=== PATIENT | female | born 1990 | race Caucasian/White ===

== ENCOUNTER 2016-09-09 06:08 | Inpatient (IN) | payer OTHER ==
[2016-09-08 15:20] LABS: Hematocrit 35 % (35-47); Mean Corpuscular HGB Conc 34 g/dl (31-36); Mean Corpuscular Hemoglobin 33 pg (27-31); Mean Corpuscular Volume 96 fL (80-97); Mean Platelet Volume 10 um3 (7.4-10.4); Red Blood Count 3.68 10^6/ul (4.0-5.4); Red Cell Distribution Width 13 % (10.5-15); White Blood Count 16.2 10^3/ul (3.5-10.8)
[2016-09-09] MEDS ORDERED: Sodium Citrate/Citric Acid* 15 ML UDC ONE (07:56)
[2016-09-09] MEDS ORDERED: ceFOXitin 2 GM IVPREMIX* 2 GM/50 ML BAG ONE (07:56)
[2016-09-09] MEDS ORDERED: Morphine PF AMP (0.5MG/ML)* 5 MG/10 ML AMP ONE (08:27)
[2016-09-09] MEDS ORDERED: Phenylephrine IV* 40 MCG/ML 10 ML SYRINGE ONE (08:53)
[2016-09-09] MEDS ORDERED: Ketorolac INJ* 30 MG/ML 1 ML VIAL ONE (08:53)
[2016-09-09] MEDS ORDERED: Ondansetron INJ* 2 MG/ML VIAL ONE (08:53)
[2016-09-09] MEDS ORDERED: EPHEDrine (Pressors)* 50 MG/ML VIAL ONE (08:53)
[2016-09-09] MEDS ORDERED: OXYTOCIN* 10 UNITS/ML 1 ML VIAL ONE (08:53)
[2016-09-09] MEDS ORDERED: DiMENhydriNATE IV* 50 MG/ML VIAL IV PUSH PRN (09:21)
[2016-09-09] MEDS ORDERED: Acetaminophen TAB* 325 MG PO PRN ×2 (09:21→09:53)
[2016-09-09] MEDS ORDERED: oxyCODONE/Acetamin 5/325 MG* TAB PO PRN ×2 (09:21→09:22)
[2016-09-09] MEDS ORDERED: HYDROmorphone INJ* 1 MG/ML CARPUJECT SYRINGE IV PRN (09:21)
[2016-09-09] MEDS ORDERED: Ondansetron INJ* 2 MG/ML VIAL IV PRN (09:22)
[2016-09-09] MEDS ORDERED: Naloxone* 0.4 MG/ML 1 ML VIAL IV PRN (09:22)
[2016-09-09] MEDS ORDERED: Nalbuphine* 20 MG/ML 1 ML VIAL IV PRN (09:22)
[2016-09-09] MEDS ORDERED: Witch Hazel PAD* JAR TOPICAL PRN (09:53)
[2016-09-09] MEDS ORDERED: Glycerin ADULT SUPP PR PRN (09:53)
[2016-09-09] MEDS ORDERED: Dibucaine 1% 28.35 GM TUBE PR PRN (09:53)
[2016-09-09] MEDS ORDERED: ceFOXitin 2 GM IVPREMIX* 2 GM/50 ML BAG IVPB ONE (09:55)
[2016-09-09] MEDS ORDERED: Oxytocin in LR* 20 UNITS/1,000 ML BAG IVPB SCH (10:00)
[2016-09-09] MEDS: Ibuprofen TAB* 600 MG PO SCH ×3 (11:18→22:00)
[2016-09-09] MEDS: Simethicone TAB* 80 MG TAB.CHEW PO SCH ×3 (12:30→20:29)
[2016-09-09] MEDS: Docusate CAP* 100 MG PO SCH ×2 (15:46→20:29)
--- NOTE | 2016-09-10 03:19 | OP ---
OPERATIVE REPORT: DATE OF OPERATION: 09/09/16 DATE OF : 86 SURGEON: Dr. Gwen Maurer. PET NUTRITION SPECIALIST: Dr. Kelley. ANESTHESIOLOGIST: Dr. Hayes. ANESTHESIA: Spinal. PRE-OP DIAGNOSIS: Intrauterine at 39 weeks, desires repeat , declines permanent sterility. POST-OP DIAGNOSIS: Intrauterine at 39 weeks, desires repeat , declines permanent sterility. OPERATIVE PROCEDURE: Repeat low transverse section. ESTIMATED BLOOD LOSS: 600 cc. FLUIDS: 1700 cc of crystalloids. URINE OUTPUT: 300 cc of clear yellow urine. FINDINGS: Revealed a vertex female infant 6 pounds 9 ounces, light meconium. No nuchal cord. Norm al-appearing placenta. Manually extracted three-vessel cord and intact. Normal appearing tubes and ovaries bilaterally. COMPLICATIONS: None apparent. DISPOSITION: Stable to recovery room. DESCRIPTION OF PROCEDURE: The patient was placed in the dorsal lithotomy position. Abdomen was prep ped and dapped in a sterile standard fashion. Anesthesia was tested to appropriate level. The calista ent was identified with a universal protocol for the correct procedure, patient, and position. An i ncision was made through prior incision with scalpel, this was carried down through the fascia. The fascia was scored in the midline, extended laterally and superiorly using curved Branch scissors. Fa scia was from the muscle through blunt and sharp dissection. The peritoneum was then enter ed bluntly and the peritoneal excision was extended bluntly. The bladder blade was inserted. The l ower uterine segment was identified and a bladder flap was created through sharp dissection using Me tzenbaum scissors. An Allis was used to tent up on the lower uterine segment. Incision was made wit h scalpel, this was carried down through to the membranes, meconium. Light meconium was noted. The bandage scissors were applied with extension of this incision superiorly and laterally. The infant was delivered vertex KARIN. No nuchal cord noted. Anterior posterior shoulder delivered. Cord was then milked and then clamped and cut. The baby was handed off to the awaiting web search evaluator, Dr. Tiara sunshine. Appropriate cord blood was then obtained. The placenta was then manually extracted, noted to be intact in three-vessel cord. The uterus was left in-situ. The uterine cavity was explored wi th moist laparotomy sponge, noted to be free of any placental tissue or membranes. The lower uterin e segment incision was clamped with broad Allis and the incision was then reapproximated using 0 Tai ryl running locked and then 0 Vicryl running imbricated for complete hemostasis of the hysterotomy s ite. Both tubes and ovaries were palpated and visualized and noted to have a normal appearance and palpated normally. At that point, the peritoneum was then reapproximated using 3-0 Vicryl in a runn ing fashion. The subfascial area was visualized and hemostasis assured with Bovie coagulation. The fascia itself was then reapproximated using 0 Vicryl x2 in a running fashion. Hemostasis was assur ed at each level. The subcu was lavaged, hemostasis assured and the skin was then reapproximated us ing a 4-0 Vicryl in a subcuticular fashion. Mastisol and Steri's were applied. All sponge, needle, instrument, and blade counts were correct throughout the case. The patient tolerated the procedure well and went to recovery room in stable condition. [id number]/[facility] #: [id number]
[2016-09-10] MEDS: oxyCODONE/Acetamin 5/325 MG* TAB PO PRN ×3 (07:07→20:05)
[2016-09-10] MEDS: Ibuprofen TAB* 600 MG PO PRN ×3 (07:08→18:52)
[2016-09-10] MEDS: PTO: Escitalopram (NF) 10 MG TAB PO SCH (07:12)
[2016-09-10 07:39] LABS: Hematocrit 27 % (35-47); Hemoglobin 9.2 g/dl (12.0-16.0); Mean Corpuscular HGB Conc 34 g/dl (31-36); Mean Corpuscular Hemoglobin 33 pg (27-31); Mean Corpuscular Volume 96 fL (80-97); Mean Platelet Volume 8 um3 (7.4-10.4); Red Blood Count 2.81 10^6/ul (4.0-5.4); Red Cell Distribution Width 13 % (10.5-15); White Blood Count 16.7 10^3/ul (3.5-10.8)
[2016-09-10] MEDS: Ferrous Gluconate TAB* 324 MG TAB PO SCH ×2 (08:50→21:26)
[2016-09-10] MEDS: Simethicone TAB* 80 MG TAB.CHEW PO SCH ×4 (08:51→21:26)
[2016-09-10] MEDS: Cetirizine* 10 MG TAB PO SCH (08:51)
[2016-09-10] MEDS: Docusate CAP* 100 MG PO SCH ×3 (08:51→21:26)
[2016-09-11] MEDS: oxyCODONE/Acetamin 5/325 MG* TAB PO PRN ×3 (00:22→08:55)
[2016-09-11] MEDS: Ibuprofen TAB* 600 MG PO PRN ×2 (04:05→12:35)
[2016-09-11] MEDS: PTO: Escitalopram (NF) 10 MG TAB PO SCH (07:02)
[2016-09-11 07:44] VITALS: BP 108/72
[2016-09-11] MEDS: Docusate CAP* 100 MG PO SCH (08:54)
[2016-09-11] MEDS: Ferrous Gluconate TAB* 324 MG TAB PO SCH (08:55)
[2016-09-11] MEDS: Cetirizine* 10 MG TAB PO SCH (08:56)
[2016-09-11] MEDS: Simethicone TAB* 80 MG TAB.CHEW PO SCH ×2 (08:56→12:34)
== END 2016-09-11 13:00 | disposition home or self-care (01) | DRG 540 ==
LOC: MCHOB 06:08
PROVIDERS: ADMIT Obstetrics & Gynecology; ATTEND Obstetrics & Gynecology
PROC: 10D00Z1 Extraction of Products of Conception, Low, Open Approach (ICD-10-PCS; principal; 2016-09-09 08:45)
DX: O34.211 Maternal care for low transverse scar from previous cesarean delivery (principal); F32.9 Major depressive disorder, single episode, unspecified; O77.0 Labor and delivery complicated by meconium in amniotic fluid; O99.344 Other mental disorders complicating childbirth; O99.334 Smoking (tobacco) complicating childbirth; F17.210 Nicotine dependence, cigarettes, uncomplicated; O90.81 Anemia of the puerperium; D64.9 Anemia, unspecified; Z3A.39 39 weeks gestation of pregnancy; Z37.0 Single live birth
CPT/HCPCS: 36415; 76815; 85025; 86850; 86900; 86901; A9270-GY; J0694; J1885; J2405; J2590

== ENCOUNTER 2016-09-15 22:14 | Emergency (ER) | payer OTHER ==
[2016-09-15 22:20] VITALS: BP 129/73
--- NOTE | 2016-09-15 23:28 | ED ---
Shravan Carrion Billy, scribed for Ehsan Logan MD on 09/15/16 at 2248 . Laceration/Wound HPI - HPI Summary HPI Summary: Patient is a 26 year-old female coming to [facility] after she noticed a small amount of bleeding from her incision wound tonight. At this time in the ED, she does not complain of any active bleeding, and the Steri-strips are intact. She has a follow-up appointment with OB tomorrow. She has no other complaints at this time. - History of Current Complaint Stated Complaint: C SECTION SIGHT BLEEDING Time Seen by Provider: 09/15/16 22:38 Hx Obtained From: Patient Hx Last Menstrual Period: one week ago, abnormal Onset/Duration: Gradual Onset Aggravating: Nothing Alleviating: Nothing Timing: Intermittent Episodes Lasting: Onset Severity: Moderate Current Severity: None Associated Signs & Symptoms: Negative - Allergy/Home Medications Allergies/Adverse Reactions: Allergies Allergy/AdvReac Type Severity Reaction Status Date / Time ENVIRONMENTAL Allergy Mild Unknown Uncoded 09/08/16 15:51 Reaction Details PMH/Surg Hx/FS Hx/Imm Hx Endocrine/Hematology History: Reports: Hx Thyroid Disease - HAD SURGERY FOR HYPERTHYROIDISM, Hx Anemia - WITH 1ST Denies: Hx Diabetes, Hx Unexplained Bleeding Cardiovascular History: Denies: Hx Hypertension, Hx Pacemaker/ICD Respiratory History: Denies: Hx Asthma History: Denies: Hx Renal Disease Sensory History: Denies: Hx Contacts or Glasses, Hx Hearing Aid Opthamlomology History: Denies: Hx Contacts or Glasses Psychiatric History: Reports: Hx Anxiety - SEES DR. BRAUN FOR-, Hx Depression - ON MEDICATION FOR -SEES DR. BRAUN FOR Denies: Hx Panic Disorder - Surgical History Surgery Procedure, Year, and Place: [place] [place] [place] -DENTAL OFFICE AGE 10 Hx Anesthesia Reactions: No - Immunization History Date of Tetanus Vaccine: Unk Date of Influenza Vaccine: None Infectious Disease History: No Infectious Disease History: Denies: Traveled Outside the [place] in Last 30 Days - Family History Known Family History: Negative: Respiratory Disease - Social History Alcohol Use: None Hx Substance Use: No Substance Use Type: Reports: None Hx Tobacco Use: Yes Smoking Status (MU): Light Every Day Tobacco Smoker Type: Cigarettes Amount Used/How Often: 1 1/2 PPD smoker since age 12 Have You Smoked in the Last Year: Yes Review of Systems Negative: Fever Positive: Other - suprapubic incision wound All Other Systems Reviewed And Are Negative: Yes Physical Exam Triage Information Reviewed: Yes Vital Signs On Initial Exam: Initial Vitals Temp Pulse Resp BP Pulse Ox 98 F 85 16 129/73 100 09/15/16 22:18 09/15/16 22:18 09/15/16 22:18 09/15/16 22:18 09/15/16 22:18 Vital Signs Reviewed: Yes Appearance: Positive: Well-Appearing, No Pain Distress Skin: Positive: Warm, Skin Color Reflects Adequate Perfusion, Dry, Other - Suprapubic, horizontal incision wound; clean-appearing, indurated, but not erythematous. Surrounding dry blood. Head/Face: Positive: Normal Head/Face Inspection Eyes: Positive: Normal ENT: Positive: Normal ENT inspection Neck: Positive: Supple, Nontender Respiratory/Lung Sounds: Positive: Clear to Auscultation, Breath Sounds Present Cardiovascular: Positive: RRR Abdomen Description: Positive: Soft Musculoskeletal: Positive: Normal Neurological: Positive: Normal Psychiatric: Positive: Normal AVPU Assessment: Alert Diagnostics - Vital Signs Vital Signs Temp Pulse Resp BP Pulse Ox 09/15/16 22:18 98 F 85 16 129/73 100 - Laboratory Lab Statement: Any lab studies that have been ordered have been reviewed, and results considered in the medical decision making process. Laceration Repair Course/Dx - Course Course Of Treatment: Ms. Estevez presented with some mild post-op bleeding that had resolved by the time she got here. Her wound was clean and healing well and I think she can F/U as previously scheduled. - Clinical Impression Provider Diagnoses: Post-op bleeding Discharge - Discharge Plan Condition: Stable Disposition: HOME Prescriptions: Ibuprofen TAB* [Motrin TAB* 600 MG] 600 mg PO Q6H PRN #30 tab PRN Reason: Pain Referrals: Sharita Braun MD [Primary Care Provider] - Hunter Alexandre MD [Medical Doctor] - The documentation as recorded by the Shravan mijares Billy accurately reflects the service I personally performed and the decisions made by me, Ehsan Logan MD.
== END 2016-09-15 22:57 | disposition home or self-care (01) ==
LOC: ED 22:14
DX: O90.89 Other complications of the puerperium, not elsewhere classified (principal); L76.22 Postprocedural hemorrhage of skin and subcutaneous tissue following other procedure; Y83.8 Other surgical procedures as the cause of abnormal reaction of the patient, or of later complication, without mention of misadventure at the time of the procedure; Y92.9 Unspecified place or not applicable; O99.345 Other mental disorders complicating the puerperium; F41.9 Anxiety disorder, unspecified; F53 Mental and behavioral disorders associated with the puerperium, not elsewhere classified; F17.210 Nicotine dependence, cigarettes, uncomplicated
CPT/HCPCS: 99281

== ENCOUNTER 2016-09-16 06:38 | Emergency (ER) | payer OTHER ==
[2016-09-16 06:45] VITALS: BP 126/74
--- NOTE | 2016-09-16 07:04 | ED ---
GI/ HPI - HPI Summary HPI Summary: 26 F status post last Monday presents with bleeding from wound this morning. At present there is no active bleeding. She denies any fever, increase in pain, pus, or spreading redness. She denies any vaginal bleeding. Yesterday was the first day she bled from the wound and she was seen last night for the same compliant. She denies any dizziness or weakness. She is following up with obgyn today. She denies lifting anything. - History of Current Complaint Chief Complaint: EDLacSutureRecheck Time Seen by Provider: 09/16/16 06:47 Stated Complaint: POST OP INCISION BLEEDING Pain Intensity: 0 - Allergy/Home Medications Allergies/Adverse Reactions: Allergies Allergy/AdvReac Type Severity Reaction Status Date / Time ENVIRONMENTAL Allergy Mild Unknown Uncoded 09/08/16 15:51 Reaction Details PMH/Surg Hx/FS Hx/Imm Hx Endocrine/Hematology History: Reports: Hx Thyroid Disease - HAD SURGERY FOR HYPERTHYROIDISM, Hx Anemia - WITH 1ST Denies: Hx Diabetes, Hx Unexplained Bleeding Cardiovascular History: Denies: Hx Hypertension, Hx Pacemaker/ICD Respiratory History: Denies: Hx Asthma History: Denies: Hx Renal Disease Sensory History: Denies: Hx Contacts or Glasses, Hx Hearing Aid Opthamlomology History: Denies: Hx Contacts or Glasses Psychiatric History: Reports: Hx Anxiety - SEES DR. BRAUN FOR-, Hx Depression - ON MEDICATION FOR -SEES DR. BRAUN FOR Denies: Hx Panic Disorder - Surgical History Surgery Procedure, Year, and Place: [facility], -DENTAL OFFICE AGE 10 Hx Anesthesia Reactions: No - Immunization History Date of Tetanus Vaccine: Unk Date of Influenza Vaccine: None Infectious Disease History: Yes Infectious Disease History: Denies: Traveled Outside the [place] in Last 30 Days - Family History Known Family History: Positive: Unknown Negative: Respiratory Disease - Social History Alcohol Use: None Hx Substance Use: No Substance Use Type: Reports: None Hx Tobacco Use: Yes Smoking Status (MU): Light Every Day Tobacco Smoker Type: Cigarettes Amount Used/How Often: 1 1/2 PPD smoker since age 12 Have You Smoked in the Last Year: Yes Review of Systems Negative: Fever Negative: Chest Pain Negative: Shortness Of Breath Positive: Abdominal Pain - around incision. Negative: Vomiting, Diarrhea, Nausea Positive: Other - bleeding from incision All Other Systems Reviewed And Are Negative: Yes Physical Exam Triage Information Reviewed: Yes Vital Signs On Initial Exam: Initial Vitals Temp Pulse Resp BP Pulse Ox 98.0 F 88 16 126/74 99 09/16/16 06:42 09/16/16 06:42 09/16/16 06:42 09/16/16 06:42 09/16/16 06:42 Vital Signs Reviewed: Yes Appearance: Positive: Well-Appearing Skin: Positive: Warm, Dry Head/Face: Positive: Normal Head/Face Inspection ENT: Positive: Normal ENT inspection, Pharynx normal, TM bulging Respiratory/Lung Sounds: Positive: Clear to Auscultation, Breath Sounds Present Cardiovascular: Positive: Normal, RRR Abdomen Description: Positive: Soft, Other: - mild tenderness around incision, no evidence of dehiscence, sterristrips intack with blood present on them. No active bleeding, no surrounding erythema, uterus below level of umblicus Diagnostics - Vital Signs Vital Signs Temp Pulse Resp BP Pulse Ox 09/16/16 06:42 98.0 F 88 16 126/74 99 - Laboratory Lab Statement: Any lab studies that have been ordered have been reviewed, and results considered in the medical decision making process. GIGU Course/Dx - Course Course Of Treatment: 26 F present post op for ceserean section last week. Denies any bleeding till last night, no symptoms of infection or blood loss, brought in pad and is mild amount of blood present, no evidence of dehisence on exam, uterus is half way below level of umblicus, discussed since no evidence of infection or blood loss will have follow up with obgyn today as scheduled, discussed reason to return to ED such as fever, spreading redness, patient agrees with plan - Diagnoses Differential Diagnoses - Female: Other - cellulitis, retain uterine product, post op bleeding Provider Diagnoses: Post-op bleeding Discharge - Discharge Plan Condition: Good Disposition: HOME Referrals: Sharita Braun MD [Primary Care Provider] - Additional Instructions: Follow up with OBGYN as scheduled Take ibuprofen or tyenlol every 6 hours as needed for pain Return to ED if develop fever, lightheadedness, or sever pain, or any new or worsening symptoms
== END 2016-09-16 07:20 | disposition home or self-care (01) ==
LOC: ED 06:38
DX: O90.0 Disruption of cesarean delivery wound (principal); L76.22 Postprocedural hemorrhage of skin and subcutaneous tissue following other procedure
CPT/HCPCS: 99282

== ENCOUNTER 2016-09-16 19:05 | Emergency (ER) | payer OTHER ==
[2016-09-16 19:32] VITALS: BP 130/65
--- NOTE | 2016-09-16 21:38 | ED ---
Delfino Carrion Karl, scribed for Kelly Hurtado MD on 09/16/16 at 2102 . Complex/Multi-Sys Presentation - HPI Summary HPI Summary: 26 y/o F presents with incision bleeding since yesterday. Pt stated that coughing aggravates the bleeding. Pt soaked through one dressing since 11: 00 this morning. Hx: 6 days ago. - History Of Current Complaint Chief Complaint: EDGeneral Time Seen by Provider: 09/16/16 19:48 - Allergies/Home Medications Allergies/Adverse Reactions: Allergies Allergy/AdvReac Type Severity Reaction Status Date / Time ENVIRONMENTAL Allergy Mild Unknown Uncoded 09/08/16 15:51 Reaction Details PMH/Surg Hx/FS Hx/Imm Hx Endocrine/Hematology History: Reports: Hx Thyroid Disease - HAD SURGERY FOR HYPERTHYROIDISM, Hx Anemia - WITH 1ST Denies: Hx Diabetes, Hx Unexplained Bleeding Cardiovascular History: Denies: Hx Hypertension, Hx Pacemaker/ICD Respiratory History: Denies: Hx Asthma History: Denies: Hx Renal Disease Sensory History: Denies: Hx Contacts or Glasses, Hx Hearing Aid Opthamlomology History: Denies: Hx Contacts or Glasses Psychiatric History: Reports: Hx Anxiety - SEES DR. BRAUN FOR-, Hx Depression - ON MEDICATION FOR -SEES DR. BRAUN FOR Denies: Hx Panic Disorder - Surgical History Surgery Procedure, Year, and Place: [facility] -D[facility]AL OFFICE AGE 10 Hx Anesthesia Reactions: No - Immunization History Date of Tetanus Vaccine: Unk Date of Influenza Vaccine: None Infectious Disease History: No Infectious Disease History: Denies: Traveled Outside the [place] in Last 30 Days - Family History Known Family History: Negative: Respiratory Disease - Social History Alcohol Use: None Hx Substance Use: No Substance Use Type: Reports: None Hx Tobacco Use: Yes Smoking Status (MU): Light Every Day Tobacco Smoker Type: Cigarettes Amount Used/How Often: 1 1/2 PPD smoker since age 12 Have You Smoked in the Last Year: Yes Review of Systems Constitutional: Negative Eyes: Negative ENT: Negative Cardiovascular: Negative Respiratory: Negative Gastrointestinal: Negative Genitourinary: Negative Musculoskeletal: Negative Skin: Other - incision Neurological: Negative Psychological: Normal All Other Systems Reviewed And Are Negative: Yes Physical Exam Vital Signs On Initial Exam: Initial Vitals Temp Pulse Resp BP Pulse Ox 98.1 F 69 16 130/65 99 09/16/16 19:30 09/16/16 19:30 09/16/16 19:30 09/16/16 19:30 09/16/16 19:30 Diagnostics - Vital Signs Vital Signs Temp Pulse Resp BP Pulse Ox 09/16/16 19:30 98.1 F 69 16 130/65 99 - Laboratory Lab Statement: Any lab studies that have been ordered have been reviewed, and results considered in the medical decision making process. Complex Multi-Symp Course/Dx Course Of Treatment: very pleasant 26 yo s/p csection over a week ago with incisional bleeding today saw ob who put pressure dressing on at 11a, back at 930 pm with slight amount of blood showing through pressure dressing. reassured pt and let her know she may soak through the pad overnight, pt given a binder and extra dressings to go - Diagnoses Provider Diagnoses: Postoperative bleeding from incision Discharge - Discharge Plan Condition: Stable Disposition: HOME The documentation as recorded by the Delfino mijares Karl accurately reflects the service I personally performed and the decisions made by me, Kelly Hurtado MD.
--- NOTE | 2016-11-07 10:58 | ED ---
Delfino Carrion Karl, scribed for Kelly Hurtado MD on 09/16/16 at 2215 . Progress - Progress Note Progress Note: Physical Exam: General: Well appearing, no pain distress Skin: Warm, Skin Color Reflects Adequate Perfusion, Dry, moderate blood/ drainage from incision Eyes: EOMI, JAYSON ENT: Pharynx normal, TMs normal Neck: Supple, nontender Respiratory: CTA, breath sounds present, no rhonchi, no wheezes, no rales Cardiovascular: RRR, no murmur, no rub, no gallop Abdomen: Soft, nontender, Non-distended, no guarding, no rebound Bowel: Present Musculoskeletal: DAVID, No edema Neuro: Sensory/motor intact, A&Ox3, CN intact 2-12 Psych: Affect/mood appropriate Course/Dx - Course Course Of Treatment: very pleasant 26 yo s/p csection over a week ago with incisional bleeding today saw ob who put pressure dressing on at 11a, back at 930 pm with slight amount of blood showing through pressure dressing. reassured pt and let her know she may soak through the pad overnight, pt given a binder and extra dressings to go - Diagnoses Provider Diagnoses: Postoperative bleeding from incision The documentation as recorded by the Delfino mijares Karl accurately reflects the service I personally performed and the decisions made by me, Kelly Hurtado MD.
== END 2016-09-16 21:45 | disposition home or self-care (01) ==
LOC: ED 19:05
DX: O90.89 Other complications of the puerperium, not elsewhere classified (principal); L76.22 Postprocedural hemorrhage of skin and subcutaneous tissue following other procedure; F17.210 Nicotine dependence, cigarettes, uncomplicated
CPT/HCPCS: 99281

== ENCOUNTER 2016-12-30 19:03 | Emergency (ER) | payer OTHER ==
[2016-12-30 20:21] VITALS: BP 111/67
--- NOTE | 2016-12-30 20:42 | UC ---
Ear Complaint HPI - HPI Summary HPI Summary: complaint of both ears feeling clogged with wax tried using peroxide in her ear last night tried warm water flush without relief left ear is now painful left ear hearing not as good as usual - History of Current Complaint Chief Complaint: UCEar Stated Complaint: CLOGGED EARS Time Seen by Provider: 12/30/16 20:35 Hx Obtained From: Patient Hx Last Menstrual Period: 12/19/16 - Allergies/Home Medications Allergies/Adverse Reactions: Allergies Allergy/AdvReac Type Severity Reaction Status Date / Time ENVIRONMENTAL Allergy Mild Unknown Uncoded 09/08/16 15:51 Reaction Details PMH/Surg Hx/FS Hx/Imm Hx Previously Healthy: Yes Endocrine History Of: Reports: Thyroid Disease - HAD SURGERY FOR HYPERTHYROIDISM Denies: Diabetes Cardiovascular History Of: Denies: Cardiac Disorders, Hypertension, Pacemaker/ICD Respiratory History Of: Denies: COPD, Asthma GI/ History Of: Denies: Ulcer, Renal Disease Psychological History Of: Reports: Anxiety - SEES DR. BRAUN FOR-, Depression - ON MEDICATION FOR -SEES DR. BRAUN FOR - Surgical History Surgical History: Yes Surgery Procedure, Year, and Place: [facility], -DENTAL OFFICE AGE 10 - Family History Known Family History: Positive: Unknown Negative: Respiratory Disease - Social History Occupation: Employed Full-time Lives: With Family Alcohol Use: None Substance Use Type: None Smoking Status (MU): Light Every Day Tobacco Smoker Type: Cigarettes Amount Used/How Often: 1 1/2 PPD smoker since age 12 Have You Smoked in the Last Year: Yes Household Exposure Type: Cigarettes Cessation Counseling: Patient Advised to Stop - Immunization History Most Recent Influenza Vaccination: up to date Most Recent Tetanus Shot: up to date Most Recent Pneumonia Vaccination: none Review of Systems Constitutional: Negative Skin: Negative Eyes: Negative ENT: Ear Ache Respiratory: Negative Cardiovascular: Negative Gastrointestinal: Negative Genitourinary: Negative Motor: Negative Neurovascular: Negative Musculoskeletal: Negative Neurological: Negative Psychological: Negative All Other Systems Reviewed And Are Negative: Yes Physical Exam Triage Information Reviewed: Yes Appearance: No Pain Distress, Well-Nourished Vital Signs: Initial Vital Signs Temp 97.1 F 12/30/16 20:16 Pulse 77 12/30/16 20:16 Resp 16 12/30/16 20:16 BP 111/67 12/30/16 20:16 Vital Signs Reviewed: Yes Eyes: Positive: Conjunctiva Clear ENT: Positive: Pharynx normal, Nasal congestion, TMs normal - right, Other: - TM not visualized d/t cerumen Neck: Positive: No Lymphadenopathy Respiratory: Positive: Lungs clear, Normal breath sounds, No respiratory distress Cardiovascular: Positive: RRR, No Murmur, Pulses Normal Musculoskeletal Exam: Normal Neurological Exam: Normal Psychological Exam: Normal Skin Exam: Normal Re-Evaluation - Re-Evaluation First Eval Change: Improved - ear cerumen removed - TM clear and flat Ear Complaint Course/Dx - Differential Dx/Diagnosis Differential Diagnosis/HQI/PQRI: Cerumen Impaction Provider Diagnoses: cerumen impaction=- left ear Discharge - Discharge Plan Condition: Stable Disposition: HOME Patient Education Materials: Cerumen Impaction (ED) Referrals: Sharita Braun MD [Primary Care Provider] - Additional Instructions: Please review your discharge instructions. If your symptoms do not improve please call your primary care provider or return to urgent care.
== END 2016-12-30 20:54 | disposition home or self-care (01) ==
LOC: UCEAST 19:03
DX: H61.22 Impacted cerumen, left ear (principal); F41.8 Other specified anxiety disorders; E89.0 Postprocedural hypothyroidism; F17.210 Nicotine dependence, cigarettes, uncomplicated
CPT/HCPCS: 99212; G0463

== ENCOUNTER 2017-03-09 10:05 | Emergency (ER) | payer OTHER ==
--- NOTE | 2017-03-09 13:07 | UC ---
Ear Complaint HPI - HPI Summary HPI Summary: 27 yo female with bilateral ear pain (mild) and decreased hearing URI symptoms x 5 days no f/c no n/v/d - History of Current Complaint Chief Complaint: UCEar Stated Complaint: PLUGGED EAR Time Seen by Provider: 03/09/17 12:36 Hx Obtained From: Patient Hx Last Menstrual Period: 03/08/17 Onset/Duration: Gradual Onset, Lasting Days Severity Initially: Mild Severity Currently: Moderate Pain Intensity: 1 Pain Scale Used: 0-10 Numeric Associated Signs/Symptoms: Positive: Hearing Loss, URI Symptoms - Allergies/Home Medications Allergies/Adverse Reactions: Allergies Allergy/AdvReac Type Severity Reaction Status Date / Time ENVIRONMENTAL Allergy Mild Unknown Uncoded 03/09/17 12:33 Reaction Details Home Medications: Home Medications Alleve 2 tab PO PRN 03/09/17 [History] Eye Drops 03/09/17 [History] Fexofenadine (NF) [Flaquita (NF)] 1 tab PO 03/09/17 [History] Nasal [place] 03/09/17 [History] PMH/Surg Hx/FS Hx/Imm Hx Previously Healthy: Yes - Surgical History Surgical History: Yes Surgery Procedure, Year, and Place: [facility], -DENTAL OFFICE AGE 10 - Family History Known Family History: Positive: Hypertension, Diabetes Negative: Respiratory Disease - Social History Alcohol Use: None Substance Use Type: None Smoking Status (MU): Heavy Every Day Tobacco Smoker Type: Cigarettes Amount Used/How Often: 1 PPD smoker since age 12 Have You Smoked in the Last Year: Yes Household Exposure Type: Cigarettes - Immunization History Most Recent Influenza Vaccination: up to date Most Recent Tetanus Shot: up to date Most Recent Pneumonia Vaccination: none Review of Systems Constitutional: Negative Skin: Negative Eyes: Negative ENT: Ear Ache, Nasal Discharge, Sinus Congestion Respiratory: Negative Cardiovascular: Negative Gastrointestinal: Negative Genitourinary: Negative Motor: Negative Neurovascular: Negative Musculoskeletal: Negative Neurological: Negative Psychological: Negative All Other Systems Reviewed And Are Negative: Yes Physical Exam Triage Information Reviewed: Yes Appearance: Well-Appearing, No Pain Distress, Well-Nourished Vital Signs: Initial Vital Signs Temp 97.7 F 03/09/17 12:39 Pulse 75 03/09/17 12:39 Resp 16 03/09/17 12:39 BP 127/72 03/09/17 12:39 Pulse Ox 99 03/09/17 12:39 Eyes: Positive: Conjunctiva Clear ENT: Positive: Nasal congestion, Nasal drainage. Negative: Hearing grossly normal, TMs normal - right bulging/left retracted, Tonsillar swelling, Tonsillar exudate Neck: Positive: Supple, Nontender Respiratory: Positive: Lungs clear, Normal breath sounds, No respiratory distress Cardiovascular: Positive: RRR, No Murmur Abdomen Description: Positive: No Organomegaly, Soft. Negative: CVA Tenderness (R), CVA Tenderness (L) Musculoskeletal: Positive: ROM Intact, No Edema Neurological: Positive: Alert Psychological Exam: Normal Skin Exam: Normal Ear Complaint Course/Dx - Differential Dx/Diagnosis Provider Diagnoses: serous otitis media. viral URI Discharge - Discharge Plan Condition: Stable Disposition: HOME Prescriptions: Prednisone [Deltasone] 40 mg PO DAILY #10 tab Patient Education Materials: Serous Otitis Media (ED) Referrals: Sharita Leahy MD [Primary Care Provider] - 2 Weeks (if not better) Additional Instructions: restart your nasal spray
[2017-03-09 13:22] VITALS: BP 112/65
== END 2017-03-09 13:00 | disposition home or self-care (01) ==
LOC: UCEAST 10:05
DX: H65.93 Unspecified nonsuppurative otitis media, bilateral (principal); J06.9 Acute upper respiratory infection, unspecified; Z72.0 Tobacco use
CPT/HCPCS: 99212; G0463

== ENCOUNTER 2017-08-13 10:13 | Emergency (ER) | payer OTHER ==
[2017-08-13] MEDS ORDERED: LORazepam TAB(*) 1 MG PO ONE ×2 (10:35→10:39)
[2017-08-13] MEDS ORDERED: Albuterol HFA INHALER* 8 gm MDI INH ONE (10:36)
--- NOTE | 2017-08-13 11:09 | ED ---
HPI Chest Pain - HPI Summary HPI Summary: Patient presents to the ED with CC of anxiety, difficulty breathing, chest pain and N/V. On arrival to the ED, she appears well. She refuses to talk to provider stating she is unable speak d/t not being about to breathe. 2 friends are with patient who state this is her anxiety and her sister is currently in the hospital and she has not slept. She notes to fatigue and begins to cry. Friends deny any other medical history. Patient is unemployed, smoker and takes medication for anxiety. She has not taken any today and is refusing on first approach by provider. Friends deny any fevers, sweats or chills. She called ambulance today after feeling as though she is unable to breath. Denies OCP use or recent travel. Notes to chest pain as a not being able to take a deep breath, but denies chest pain otherwise. - History of Current Complaint Chief Complaint: EDGeneral Time Seen by Provider: 08/13/17 10:17 Hx Obtained From: Patient Hx Last Menstrual Period: 03/08/17 Onset/Duration: Started Hours Ago Timing: Constant Initial Severity: Moderate Current Severity: Moderate Pain Intensity: 8 Pain Scale Used: 0-10 Numeric Chest Pain Location: Mid Sternal Chest Pain Radiates: No Aggravating Factor(s): Nothing Alleviating Factor(s): Nothing Associated Signs and Symptoms: Positive: Negative - Risk Factors Pulmonary Embolism Risk Factors: Negative TAD Risk Factors: Negative - Allergy/Home Medications Allergies/Adverse Reactions: Allergies Allergy/AdvReac Type Severity Reaction Status Date / Time ENVIRONMENTAL Allergy Mild Unknown Uncoded 03/09/17 12:33 Reaction Details PMH/Surg Hx/FS Hx/Imm Hx Previously Healthy: Yes Endocrine/Hematology History: Reports: Hx Thyroid Disease - HAD SURGERY FOR HYPERTHYROIDISM, Hx Anemia - WITH 1ST Denies: Hx Diabetes, Hx Unexplained Bleeding Cardiovascular History: Denies: Hx Hypertension, Hx Pacemaker/ICD Respiratory History: Denies: Hx Asthma, Hx Chronic Obstructive Pulmonary Disease (COPD) GI History: Denies: Hx Ulcer History: Denies: Hx Renal Disease Sensory History: Denies: Hx Contacts or Glasses, Hx Hearing Aid Opthamlomology History: Denies: Hx Contacts or Glasses Psychiatric History: Reports: Hx Anxiety - SEES DR. BRAUN FOR-, Hx Depression - ON MEDICATION FOR -SEES DR. BRAUN FOR Denies: Hx Panic Disorder - Surgical History Surgery Procedure, Year, and Place: [facility], -D[facility]AL OFFICE AGE 10 Hx Anesthesia Reactions: No - Immunization History Date of Tetanus Vaccine: Unk Date of Influenza Vaccine: None Hx Pertussis Vaccination: No Immunizations Up to Date: Unable to Obtain/Confirm Infectious Disease History: No Infectious Disease History: Denies: Hx Clostridium Difficile, Hx Hepatitis, Hx Human Immunodeficiency Virus (HIV), Hx of Known/Suspected MRSA, Hx Shingles, Hx Tuberculosis, Hx Known/ Suspected VRE, Hx Known/Suspected VRSA, History Other Infectious Disease, Traveled Outside the [place] in Last 30 Days - Family History Known Family History: Positive: Hypertension, Diabetes Negative: Respiratory Disease - Social History Occupation: Unemployed Lives: With Family Alcohol Use: None Hx Substance Use: No Substance Use Type: Reports: None Hx Tobacco Use: Yes Smoking Status (MU): Light Every Day Tobacco Smoker Type: Cigarettes Amount Used/How Often: 1 PPD smoker since age 12 Have You Smoked in the Last Year: Yes Review of Systems Constitutional: Negative Negative: Fever, Chills, Fatigue Eyes: Negative Positive: Chest Pain Respiratory: Negative Positive: Cough Positive: Vomiting, Nausea Genitourinary: Negative Positive: no symptoms reported, see HPI Musculoskeletal: Negative Neurological: Negative Positive: Anxious All Other Systems Reviewed And Are Negative: Yes Physical Exam Triage Information Reviewed: Yes Vital Signs On Initial Exam: Initial Vitals Temp Pulse Resp BP Pulse Ox 100.1 F 102 18 119/67 100 08/13/17 10:29 08/13/17 10:29 08/13/17 10:29 08/13/17 10:29 08/13/17 10:29 Vital Signs Reviewed: Yes Appearance: Positive: Well-Nourished, Ill-Appearing Skin: Positive: Warm, Skin Color Reflects Adequate Perfusion Head/Face: Positive: Normal Head/Face Inspection Eyes: Positive: EOMI, JAYSON, Conjunctiva Clear Neck: Positive: Supple, No Lymphadenopathy Respiratory/Lung Sounds: Positive: Clear to Auscultation, Breath Sounds Present Cardiovascular: Positive: RRR, Pulses are Symmetrical in both Upper and Lower Extremities Musculoskeletal: Positive: Strength/ROM Intact Neurological: Positive: Speech Normal Psychiatric: Positive: Anxious - [place] Coma Scale Coma Scale Total: 15 Diagnostics - Vital Signs Vital Signs Temp Pulse Resp BP Pulse Ox 08/13/17 10:45 18 08/13/17 10:29 100.1 F 102 18 119/67 100 - Laboratory Result Diagrams: 08/13/17 11:05 08/13/17 11:05 Lab Statement: Any lab studies that have been ordered have been reviewed, and results considered in the medical decision making process. Re-Evaluation - Re-Evaluation First Eval Change: Worse - upon re-evaluation, Chest Pain Course/Dx - Course Course Of Treatment: During the course of treatment, patient is extremely anxious and states she cannot breath. She is refusing EKG and medication at first approach. Provider convinced to take the anxiety medication. She agrees and feels improved. However, temp is noted to be 100.9. She is given tylenol and labs obtained. D-dimer negative. WBC slightly elevated at 11.0. Chest xray negative. Strep and flu negative. Patient continues to feel lethargic. I have encouraged fluids and tylenol and ibuprofen intermittently. The EKG shows tachycardia, but otherwise normal. Prior to discharge HR is 88; RR 16 and BP WNL. Temp reduced to 100.0. Upon patient discharge, she feels improved and is OK with plan. Strict return precautions given. - Diagnoses Provider Diagnoses: Viral syndrome Discharge - Discharge Plan Condition: Stable Disposition: HOME Prescriptions: Ondansetron ODT TAB* [Zofran 4 MG Odt TAB*] 4 mg PO Q6H PRN #12 tab.odt MDD 4 PRN Reason: Nausea Patient Education Materials: Viral Syndrome (ED) Referrals: Sharita Braun MD [Primary Care Provider] - Additional Instructions: Tylenol 650mg three times daily On opposite schedule, please take ibuprofen 600mg three times daily (every 4 hours should be taking tylenol or ibuprofen intermittently) Drink plenty of water or gatorade Soda is dehydrating and try to avoid If you develop any nausea, I have given you zofran as a prescription. Please return if you develop any worsening symptoms.
[2017-08-13 11:13] LABS: Hematocrit 37 % (35-47); Hemoglobin 12.9 g/dl (12.0-16.0); Mean Corpuscular HGB Conc 35 g/dl (31-36); Mean Corpuscular Hemoglobin 32 pg (27-31); Mean Corpuscular Volume 93 fL (80-97); Mean Platelet Volume 8 um3 (7.4-10.4); Red Blood Count 4.05 10^6/ul (4.0-5.4); Red Cell Distribution Width 13 % (10.5-15); White Blood Count 11.1 10^3/ul (3.5-10.8)
[2017-08-13 11:27] LABS: Anion Gap 6 mmol/L (2-11); Blood Urea Nitrogen 12 mg/dL (6-24); CO2 Carbon Dioxide 26 mmol/L (22-32); Chloride 105 mmol/L (101-111); Glucose 108 mg/dL (70-100); Potassium 3.4 mmol/L (3.5-5.0); Sodium 137 mmol/L (133-145)
[2017-08-13 11:28] LABS: ALT 34 U/L (7-52); AST 32 U/L (13-39); Albumin 3.9 g/dL (3.2-5.2); Alkaline Phosphatase 95 U/L (34-104); Calcium 8.6 mg/dL (8.6-10.3); EGFR Non-African American 118.2 (>60); Globulin 2.4 g/dL (2-4); Total Protein 6.3 g/dL (6.4-8.9)
[2017-08-13] MEDS ORDERED: Al Hydrox/Mg Hydrox/Simet LIQ* 30 ML UDC PO ONE (12:25)
[2017-08-13] MEDS ORDERED: Acetaminophen TAB* 325 MG PO ONE (12:38)
--- NOTE | 2017-08-13 12:38 | RAD ---
Indication: Chest pain. Single frontal view of the chest performed at 1150 hours was reviewed. No prior study is available for comparison. No mediastinal shift is noted. Heart is of normal size and configuration. Lung tyler appear clear. IMPRESSION: NO ACTIVE CARDIOPULMONARY DISEASE IS NOTED.
[2017-08-13] MEDS ORDERED: Ibuprofen TAB* 600 MG PO ONE (13:49)
[2017-08-13 15:18] VITALS: BP 117/69
--- NOTE | 2017-08-13 16:54 | PN ---
Progress Note - Progress Note Date of Service: 08/13/17 Note: EKG was not read by Attending physician prior to discharge. After discharge, the EKG was seen by our attending physician who requested the patient return to the ED for a repeat EKG. She was called at 4:45p. Domestic partner who was with her in the ED answered and stated he would communicate to patient she should return to the ED. I have discussed the risks of waiting and stated she will need an EKG and if she is unable to make it to our [facility] ED, to go to another ED or UC. He agrees to tell the patient and if any questions, phone number or ED given to partner.
== END 2017-08-13 15:17 | disposition home or self-care (01) ==
LOC: ED 10:13
DX: B34.9 Viral infection, unspecified (principal); F17.210 Nicotine dependence, cigarettes, uncomplicated
CPT/HCPCS: 36415; 71010; 80053; 84702; 85025; 85379; 87502; 87651; 93005; 99283; A9270-GY

== ENCOUNTER 2017-08-14 16:47 | Emergency (ER) | payer OTHER ==
[2017-08-14] MEDS ORDERED: Ibuprofen TAB* 600 MG PO ONE (17:07)
[2017-08-14 18:02] VITALS: BP 110/65
--- NOTE | 2017-08-14 18:47 | ED ---
Mumtaz Carrion Tecjoon, scribed for Ehsan Logan MD on 08/14/17 at 1720 . HPI Febrile Illness - HPI Summary HPI Summary: This patient is a 27 year old female BIBA to [facility] with a chief complaint of febrile illness and chest congestion since 3 days ago. Patient states that with medications and a visit to the ED yesterday, her sx were relieved, but flared up again today at 1500. Pt states that the inhaler provided yesterday caused her non-productive cough to develop into a productive cough producing clear phlegm. Patient also complains of general bodyaches, rated 5/10 in severity. The patient attempted to treated the pain with Tylenol [employer]. Patient additionally reports vomiting, nausea, diaphoresis. Patient denies any urinary or bowel problems. Pt has a hx of anxiety. - History of Current Complaint Chief Complaint: EDFever Time Seen by Provider: 08/14/17 16:48 Hx Obtained From: Patient Hx Last Menstrual Period: 03/08/17 Onset/Duration: Started Hours Ago - sx flared up today at 1500, Started Days Ago - 3 Timing: Constant Pain Intensity: 5 Pain Scale Used: 0-10 Numeric Aggravating Factors: Nothing Alleviating Factors: Nothing Associated Signs and Symptoms: Negative - any urinary or bowel problems, Other: - vomiting, nausea, diaphoresis, chest congestion - Allergy/Home Medications Allergies/Adverse Reactions: Allergies Allergy/AdvReac Type Severity Reaction Status Date / Time ENVIRONMENTAL Allergy Mild Unknown Uncoded 03/09/17 12:33 Reaction Details PMH/Surg Hx/FS Hx/Imm Hx Previously Healthy: No Endocrine/Hematology History: Reports: Hx Thyroid Disease - HAD SURGERY FOR HYPERTHYROIDISM, Hx Anemia - WITH 1ST Denies: Hx Diabetes, Hx Unexplained Bleeding Cardiovascular History: Denies: Hx Hypertension, Hx Pacemaker/ICD Respiratory History: Denies: Hx Asthma, Hx Chronic Obstructive Pulmonary Disease (COPD) GI History: Denies: Hx Ulcer History: Denies: Hx Renal Disease Sensory History: Denies: Hx Contacts or Glasses, Hx Hearing Aid Opthamlomology History: Denies: Hx Contacts or Glasses Psychiatric History: Reports: Hx Anxiety - SEES DR. BRAUN FOR-, Hx Depression - ON MEDICATION FOR -SEES DR. BRAUN FOR Denies: Hx Panic Disorder - Surgical History Surgery Procedure, Year, and Place: PARTIAL [facility]RO[place]OM[place], [place] [place]. , [facility], -DENTAL OFFICE AGE 10 Hx Anesthesia Reactions: No - Immunization History Date of Tetanus Vaccine: Unk Date of Influenza Vaccine: None Infectious Disease History: No Infectious Disease History: Denies: Hx Clostridium Difficile, Hx Hepatitis, Hx Human Immunodeficiency Virus (HIV), Hx of Known/Suspected MRSA, Hx Shingles, Hx Tuberculosis, Hx Known/ Suspected VRE, Hx Known/Suspected VRSA, History Other Infectious Disease, Traveled Outside the [place] in Last 30 Days - Family History Known Family History: Positive: Hypertension, Diabetes Negative: Respiratory Disease - Social History Occupation: Unemployed Alcohol Use: None Hx Substance Use: No Substance Use Type: Reports: None Hx Tobacco Use: Yes Smoking Status (MU): Light Every Day Tobacco Smoker Type: Cigarettes Amount Used/How Often: 1 PPD smoker since age 12 Have You Smoked in the Last Year: Yes Review of Systems Positive: Fever, Skin Diaphoresis Positive: Cough, Other - chest congestion Gastrointestinal: Negative - any bowel problems Positive: Vomiting, Nausea Genitourinary: Negative - any urinary problems Positive: Myalgia All Other Systems Reviewed And Are Negative: Yes Physical Exam - Summary Physical Exam Summary: Appearance: The patient is well-nourished in no acute distress and in no acute pain. Skin: The skin is warm and diaphoretic to touch. HEENT: The head is normocephalic and atraumatic. The pupils are equal and reactive. The conjunctivae are clear and without drainage. Nares are patent and without drainage. Mouth reveals moist mucous membranes and the throat is without erythema and exudate. The external ears are intact. The ear canals are patent and without drainage. The tympanic membranes are intact. Neck: the neck is supple with full range of motion and non-tender. There are no carotid bruits. There is no neck vein distension. Respiratory: Chest is non-tender. Lungs are clear to auscultation and breath sounds are symmetrical and equal. Cardiovascular: Heart is regular rate and rhythm. There is no murmur or rub auscultated. There is no peripheral edema and pulses are symmetrical and equal. Abdomen: The abdomen is soft and non-tender. There are normal bowel sounds heard in all four quadrants and there is no organomegaly palpated. Musculoskeletal: There is no back tenderness noted. Extremities are non-tender with full range of motion. There is good capillary refill. There is no peripheral edema or calf tenderness elicited. Neurological: Patient is alert and oriented to person, place and time. The patient has symmetrical motor strength in all four extremities. Cranial nerves are grossly intact. Deep tendon reflexes are symmetrical and equal in all four extremities. Psychiatric: The patient has an appropriate affect and does not exhibit any anxiety or depression. Triage Information Reviewed: Yes Vital Signs On Initial Exam: Initial Vitals Temp Pulse Resp BP Pulse Ox 101.2 F 104 16 107/69 97 08/14/17 16:54 08/14/17 16:54 08/14/17 16:54 08/14/17 16:54 08/14/17 16:54 Vital Signs Reviewed: Yes - [place] Coma Scale Coma Scale Total: 15 Diagnostics - Vital Signs Vital Signs Temp Pulse Resp BP Pulse Ox 08/14/17 17:02 107 97 08/14/17 16:54 101.2 F 104 16 107/69 97 - Laboratory Lab Statement: Any lab studies that have been ordered have been reviewed, and results considered in the medical decision making process. - EKG 1714 Cardiac Rate: NL EKG Rhythm: Sinus Rhythm - 86 BPM EKG Comparison: No Significant Change Course/Dx - Course Course Of Treatment: Ms. Estevez was seen here yesterday for a fever and W/U'd . She did fine after leaving here yesterday and took ibuprofen and acetaminophen. She felt fine today until about 1500 when she started to feel ill agaiin and checked her temp which was elevated at 101.7. She took tylenol but ot was 101.8 an hour lateer so she came back in. Her exam was unremarkable aside from the fever and she felt better after ibuprofen and defervesing. I agree that this is likely viral and we disussed alternating acetaminophen and ibuprofen for a few days to prevent this from happening again. - Diagnoses Provider Diagnoses: Viral syndrome Discharge - Discharge Plan Condition: Stable Disposition: HOME Patient Education Materials: Viral Syndrome (ED) Referrals: Sharita Braun MD [Medical Doctor] - 3 Days Additional Instructions: Patient will be discharged for Viral Syndrome and follow up with PCP in 3 days. The patient is agreeable with this plan. The documentation as recorded by the Mumtaz mijares Tecjoon accurately reflects the service I personally performed and the decisions made by me, Ehsan Logan MD.
== END 2017-08-14 18:16 | disposition home or self-care (01) ==
LOC: ED 16:47
DX: B34.9 Viral infection, unspecified (principal); F17.210 Nicotine dependence, cigarettes, uncomplicated
CPT/HCPCS: 93005; 99282; A9270-GY

== ENCOUNTER 2017-08-23 09:59 | Emergency (ER) | payer OTHER | END 2017-08-23 10:30 | disposition left against medical advice (07) | LOC: UCEAST 09:59 | DX: J34.89 Other specified disorders of nose and nasal sinuses (principal); Z53.21 Procedure and treatment not carried out due to patient leaving prior to being seen by health care provider ==

== ENCOUNTER 2017-08-23 11:42 | Emergency (ER) | payer OTHER ==
[2017-08-23 13:42] VITALS: BP 115/66
--- NOTE | 2017-08-23 13:49 | UC ---
Throat Pain/Nasal Fernando HPI - HPI Summary HPI Summary: Pt presents with sinus symptoms and frontal headache for 2 weeks. She tells me that about 2 weeks ago she developed sinus pain/pressure/congestion, she tried conservative measures such as OTC cold and flu, rest, and fluids. Thought her symptoms were improving, but over the last 3-4 days has had increasing drainage and congestion. Denies fever, chills, cough, SOB, chest pain, abdominal pain, N/ V/D/C - History of Current Complaint Chief Complaint: UCRespiratory Stated Complaint: SINUS ISSUE Time Seen by Provider: 08/23/17 13:48 Hx Obtained From: Patient Hx Last Menstrual Period: 1 MONTH Onset/Duration: Gradual Onset Severity: Moderate Pain Intensity: 6 Pain Scale Used: 0-10 Numeric - Allergies/Home Medications Allergies/Adverse Reactions: Allergies Allergy/AdvReac Type Severity Reaction Status Date / Time ENVIRONMENTAL Allergy Mild Unknown Uncoded 03/09/17 12:33 Reaction Details PMH/Surg Hx/FS Hx/Imm Hx Previously Healthy: Yes Psychological History: Anxiety, Depression - Surgical History Surgical History: Yes Surgery Procedure, Year, and Place: [place] [place] 2X[place]-SE[place] , [place]OM[place]OS[place] [place] ORAL SURGERY, -DENTAL OFFICE AGE 10 - Family History Known Family History: Positive: Hypertension, Diabetes Negative: Respiratory Disease - Social History Occupation: Employed Full-time Lives: With Family Alcohol Use: None Substance Use Type: None Smoking Status (MU): Light Every Day Tobacco Smoker Type: Cigarettes Amount Used/How Often: 1 PPD smoker since age 12 Have You Smoked in the Last Year: Yes Household Exposure Type: Cigarettes Cessation Counseling: Counseled 3+Min - 10 Min - Immunization History Most Recent Influenza Vaccination: up to date Most Recent Tetanus Shot: up to date Most Recent Pneumonia Vaccination: none Review of Systems Constitutional: Negative Skin: Negative Eyes: Negative ENT: Nasal Discharge, Sinus Congestion, Sinus Pain/Tenderness Respiratory: Negative Cardiovascular: Negative Gastrointestinal: Negative All Other Systems Reviewed And Are Negative: Yes Physical Exam Triage Information Reviewed: Yes Appearance: Well-Appearing, Well-Nourished Vital Signs: Initial Vital Signs Temp 98.5 F 08/23/17 13:36 Pulse 84 08/23/17 13:36 Resp 15 08/23/17 13:36 BP 115/66 08/23/17 13:36 Pulse Ox 99 08/23/17 13:36 Vital Signs Reviewed: Yes Eyes: Positive: Conjunctiva Clear. Negative: Conjunctiva Inflamed, Discharge ENT: Positive: Hearing grossly normal, Pharynx normal, Nasal congestion, Nasal drainage, TMs normal, Sinus tenderness, Uvula midline. Negative: Pharyngeal erythema, TM bulging, TM dull, TM red, Tonsillar swelling, Tonsillar exudate, Hoarse voice Neck: Positive: Supple, Nontender, No Lymphadenopathy Respiratory: Positive: Chest non-tender, Lungs clear, Normal breath sounds, No respiratory distress, No accessory muscle use Cardiovascular: Positive: RRR, No Murmur, Pulses Normal Neurological: Positive: Alert Psychological: Positive: Age Appropriate Behavior Skin: Negative: rashes Throat Pain/Nasal Course/Dx - Course Course Of Treatment: Sinusitis - Amoxicillin and Mucinex - Differential Dx/Diagnosis Differential Diagnosis/HQI/PQRI: Influenza, Otitis Media, Sinusitis, Tonsillitis , URI Provider Diagnoses: Sinusitis Discharge - Discharge Plan Condition: Stable Disposition: HOME Prescriptions: Amoxicillin PO (*) [Amoxicillin 500 MG CAP*] 500 mg PO Q12H #20 cap guaiFENesin ER TAB [Mucinex*] 600 mg PO BID #14 tab.er Patient Education Materials: Sinusitis (ED) Referrals: No Primary Care Phys,NOPCP [Primary Care Provider] - Additional Instructions: If you develop a fever, shortness of breath, chest pain, new or worsening symptoms - please call your PCP or go to the ED.
== END 2017-08-23 14:20 | disposition home or self-care (01) ==
LOC: UCEAST 11:42
DX: J32.9 Chronic sinusitis, unspecified (principal); Z72.0 Tobacco use
CPT/HCPCS: 99212; G0463

== ENCOUNTER 2017-11-23 14:08 | Emergency (ER) | payer OTHER ==
--- OUTSIDE RECORDS SUMMARY | 2017-11-23 14:16 | XMS REPORT ---
:1990 External Reference #:[id number] Author Organization schedule planning manager [facility] Address [address] [place] [address] Phone [phone] Care Team Providers Name Role Phone Sharita Leahy MD Primary Care Physician Unavailable Payers Type Date Identification Numbers Payment Provider Subscriber Commercial Effective: Policy Number: [id number] [facility] Cely Estevez 2014 PayID: [id number] [address] [address] [place] [address] [facility] Policy Number: [id number] Medicaid [place] Cely Estevez PayID: [id number] [address] [place] [address] Problems Date Description Provider Status Onset: 11/15/2011 Thyroid dysfunction during - Manda Field CNM Active baby not yet delivered Onset: 11/23/2011 Peptic reflux disease Manda Field CNM Active Onset: Problem Active Family History Date Family Member(s) Problem(s) Comments Father Healthy Mother Healthy Number of Children 3 First Son Asthma Second Son No Current Problems First Daughter A&W Number of Siblings Siblings: 2 First Sister Healthy Second Sister Healthy Maternal Grandfather due to Diabetes () Maternal Grandmother due to Natural Causes () Social History Type Date Description Comments Education Highest level of education completed is 12th grade Marital Status Patient is single Living Situation Lives with male partner, son and daughter Pets Household pets include a cat and a dog Occupation Unemployed Cigarette Use Current cigarette smoker, has smoked 1 pack daily Alcohol Denies alcohol use Smoking Patient is a current smoker, smokes every day Drug Use Has used illegal drugs in the past Daily Caffeine Drinks on average 2 sodas a day sometimes coffee Exercise Type/Frequency Current Does not exercise Seat Belt/Car Seat Always uses a seat belt Currently Active The patient is currently not sexually active Contraceptive Methods Does not currently use any method of control STD's No STD history Allergies, Adverse Reactions, Alerts Date Description Reaction Status Severity Comments 04/16/2008 NKDA active 05/27/2015 Seasonal active Medications Medication Date Status Form Strength Qnty SIG Indications Ordering Provider Claritin / Active Unknown 0000 Tripple Nipple 10/27/ Hx Misc Phaelon Cream 2017 - MD Bettie 2016 Diflucan 10/17/ Hx Tablets 100mg 30tabs take 1 Gwen 2016 - tablet by Erasto 10/25/ cayrn bland MD 2017 times a day for 14 days Breast Pump 10/11/ Hx Misc 1units double Danny Velez 2016 - electric Gelber, 10/25/ breast M.D. 2017 pump for lactating mother Hydroxyzine 09/16/ Hx Capsules 50mg 60caps Take 1 by Danny Velez Pamoate 2017 - mouth Gelber, 10/26/ every six M.D. 2017 hours as needed for anxiety Motrin 09/15/ Hx Tablets 600mg 30tabs Q6H prn Unknown Repmari 2016 - For Pain 2016 Percocet 09/10/ Hx Tablets 5-325mg 40tabs Q4H prn Unknown 2016 - For Moderate 2017 Pain Ferrous 06/28/ Hx Tablets 325(36Fe) 90tabs 1 by mouth Gwen Gluconate 2016 - mg daily Erasto 2017 Ferrous 06/15/ Hx Tablets 324(38Fe) 60tabs 1 by mouth Danny Velez Gluconate 2016 - mg every day Gelber, 06/28/ M.D. 2015 Acetaminophen 03/23/ Hx Tablets 500mg 45tabs take 1-2 Zaina 2015 - tablets PO Aleah, 10/25/ every 6 LM 2017 hours prn headaches Ibuprofen 04/23/ Hx Tablets 600mg 30tabs 1 by mouth D21.4 Mahrie 2014 - four times Mistry, 09/12/ a day x 5 CNM 2015 days No Active 08/19/ Unknown Medications 2012 - 2012 Alyacen 01/18/ Hx Tablets 1-35mg-mcg 21tabs 1 po qd Christie 2011 - start Michel, [employer] 01/19/122011 Nexplanon 11/13/ Hx Implant 68mg Unknown 2011 - 2012 Prevacid 10/30/ Hx Capsules 15mg 1 daily by Manda Fan 2011 - DR caryn Field, 01/18/ CNM 2011 Methimazole 08/02/ Hx Tablets 5mg 1 daily Law, 2010 - Kerwin, 08/05/ M.D. 2012 Zofran Odt 05/17/ Hx Tablets 8mg 20tabs 1 po q 4-6 Gwen 2010 - Dispers hrs prn Doris Patrick, 07/12/ for nausea [facility] 2010 Zofran 05/17/ Hx Tablets 8mg 60tabs 1 tablet Mahrie 2010 - po q 6 hrs Fede, 12/20/ prn not to CNM 2011 exceed 32 mg/day Zithromax 10/01/ Hx Tablets 250mg 6tabs take 2 Tala 2008 - tablets Haroon, 11/06/ today, CNM 2008 then 1 tablet daily Precare 05/20/ Hx Chewtabs 30unit 1 PO qd Danny Velez 2007 Kirti Kelley, 05/17/ M.D. 2010 Natachew 05/08/ Hx Chewtabs 90unit 1 po qd Danny Velez 2008 Kirti Kelley, 05/20/ M.D. 2008 /Folic 04/18/ Hx Tablets 90tabs 1 PO qd Kimberlyn Acid 2007, 05/08/ ANP-C 2007 Ferrous Sulfate 04/18/ Hx Tablets 324mg 60tabs 1 po bid Kimberlyn 2007, 10/01/ ANP-C 2009 Macrobid 04/18/ Hx Capsules 100mg 14caps 1 PO bid Kimberlyn 2007, 04/25/ ANP-C 2008 Lexapro 00/ Hx Tablets 20mg 30tabs 1 po qd Unknown - 2014 Loratadine / Hx Tablets 10mg prn Unknown - 2016 Cymbalta /00/ Hx Unknown - 2015 Cymbalta 00/ Hx Caps DR 30mg by mouth Unknown 0000 - Part every day 2015 Lexapro / Hx Tablets 10mg 1 po qd Unknown 2016 Multi Vitamin / Hx 1 po qd Unknown 2016 Flaquita Allergy Hx Unknown 2017 Nasal [place] Hx Unknown 2017 Immunizations CPT Code Status Date Vaccine Lot # [id number] Given 06/28/2016 Tetnus, Diptheria Toxoids And Acellular Pertussis, [id number] PT > 7Yrs Old Vital Signs Date Vital Result Comment 11/03/2017 BP Systolic 118 mmHg BP Diastolic 66 mmHg Height 61 inches 5'1" Weight 138.00 lb BMI (Body Mass Index) 26.1 kg/m2 Last Menstrual Period 0141955 4 Parity 3 03/31/2017 BP Systolic 112 mmHg BP Diastolic 68 mmHg Height 61 inches 5'1" Weight 147.00 lb BMI (Body Mass Index) 27.8 kg/m2 Last Menstrual Period 5510041 4 Parity 3 10/27/2016 BP Systolic 108 mmHg BP Diastolic 64 mmHg Height 61 inches 5'1" Weight 137.00 lb BMI (Body Mass Index) 25.9 kg/m2 Last Menstrual Period 8610530 4 Parity 3 10/17/2016 BP Systolic 110 mmHg BP Diastolic 60 mmHg Height 61 inches 5'1" Weight 135.00 lb BMI (Body Mass Index) 25.5 kg/m2 Last Menstrual Period 9059392 4 Parity 2 09/28/2016 BP Systolic 110 mmHg BP Diastolic 76 mmHg Body Temperature 98.4 F Height 61 inches 5'1" Weight 135.00 lb BMI (Body Mass Index) 25.5 kg/m2 Last Menstrual Period 8273836 4 Parity 2 09/16/2016 BP Systolic 126 mmHg BP Diastolic 74 mmHg Body Temperature 98.0 F Heart Rate 88 /min Respiratory Rate 16 /min Height 61 inches Weight 145.00 lb 09/02/2016 BP Systolic 104 mmHg BP Diastolic 58 mmHg Body Temperature 97.9 F Heart Rate 84 /min Respiratory Rate 18 /min Height 61.5 inches 5'1.50" Weight 154.00 lb BMI (Body Mass Index) 28.6 kg/m2 Last Menstrual Period 2477590 4 Parity 2 05/03/2016 BP Systolic 102 mmHg BP Diastolic 64 mmHg Height 61.5 inches 5'1.50" Weight 127.00 lb BMI (Body Mass Index) 23.6 kg/m2 Last Menstrual Period 5174253 4 Parity 2 03/23/2016 BP Systolic 120 mmHg BP Diastolic 64 mmHg Height 61.5 inches 5'1.50" Weight 121.00 lb BMI (Body Mass Index) 22.5 kg/m2 Last Menstrual Period 6960680 4 Parity 2 10/13/2015 BP Systolic 116 mmHg BP Diastolic 72 mmHg Height 61.5 inches 5'1.50" Weight 112.00 lb BMI (Body Mass Index) 20.8 kg/m2 Last Menstrual Period 6687782 3 Parity 2 05/27/2015 BP Systolic 116 mmHg BP Diastolic 70 mmHg Heart Rate 79 /min Respiratory Rate 18 /min Height 61.5 inches Weight 122.00 lb BMI (Body Mass Index) 22.7 kg/m2 04/23/2015 BP Systolic 112 mmHg BP Diastolic 74 mmHg Height 60.75 inches 5'0.75" Weight 122.00 lb BMI (Body Mass Index) 23.2 kg/m2 Last Menstrual Period 5520798 08/19/2013 BP Systolic 100 mmHg BP Diastolic 60 mmHg Height 60.75 inches 5'0.75" Weight 125.00 lb BMI (Body Mass Index) 23.8 kg/m2 Last Menstrual Period 3589491 3 Parity 2 08/07/2012 BP Systolic 106 mmHg BP Diastolic 62 mmHg Height 60.75 inches 5'0.75" Weight 116.00 lb BMI (Body Mass Index) 22.1 kg/m2 Last Menstrual Period 0 bleeding daily 3 Parity 2 01/19/2012 BP Systolic 100 mmHg BP Diastolic 60 mmHg Height 60.75 inches 5'0.75" Weight 111.00 lb BMI (Body Mass Index) 21.1 kg/m2 3 Parity 2 12/22/2011 BP Systolic 104 mmHg BP Diastolic 62 mmHg Body Temperature 98.1 F Height 60.75 inches 5'0.75" Weight 117.00 lb BMI (Body Mass Index) 22.3 kg/m2 05/17/2011 BP Systolic 100 mmHg BP Diastolic 52 mmHg Height 60.75 inches 5'0.75" Weight 105.00 lb BMI (Body Mass Index) 20.0 kg/m2 Last Menstrual Period 2220593 3 Parity 1 12/15/2008 BP Systolic 110 mmHg BP Diastolic 58 mmHg Body Temperature 98.4 F Height 60.5 inches 5'0.50" Weight 121.00 lb BMI (Body Mass Index) 23.2 kg/m2 Last Menstrual Period 0 1 Parity 1 04/16/2008 BP Systolic 106 mmHg BP Diastolic 58 mmHg Height 60.5 inches 5'0.50" Weight 105.00 lb BMI (Body Mass Index) 20.2 kg/m2 Last Menstrual Period [id number] Results Test Date Test Result H/L Range Note Laboratory test 03/31/2017 Surgical Pathology SEE RESULT BELOW 1 finding Laboratory Studies 09/10/2016 Absolute Basophils 0.1 10^3/ul 0-0.2 (auto) Absolute Eosinophils (auto) 0.2 10^3/ul 0-0.6 Absolute Lymphocytes (auto) 2.4 10^3/ul 1.0-4.8 Absolute Monocytes (auto) 1.2 10^3/ul High 0-0.8 Absolute Neutrophils (auto) 12.8 10^3/ul High 1.5-7.7 Basophils (%) (Auto) 0.6 % 0-2 Eosinophils (%) (Auto) 1.3 % 0-6 Hematocrit 27 % Low 35-47 Hemoglobin 9.2 g/dL Low 12.0-16.0 Lymphocytes (%) (Auto) 14.3 % Low 25-47 Mean Corpuscular Hemoglobin 33 pg High 27-31 Mean Corpuscular Hemoglobin Concent 34 g/dL 31-36 Mean Corpuscular Volume 96 fL 80-97 Mean Platelet Volume 8 um3 7.4-10.4 Monocytes (%) (Auto) 7.3 % 1-9 Neutrophils (%) (Auto) 76.5 % 38-83 Nucleated RBC Absolute Count (auto) 0 10^3/ul Nucleated Red Blood Cells % 0 Platelet Count 258 10^3/ul 150-450 Red Blood Count 2.81 10^6/ul Low 4.0-5.4 Red Cell Distribution Width 13 % 10.5-15 White Blood Count 16.7 10^3/ul High 3.5-10.8 Laboratory test 09/01/2016 Rupture of Negative 2 finding Membranes Laboratory test 08/11/2016 Genital For GRP B SEE RESULT BELOW 3 finding Strep Only Laboratory test 06/14/2016 Glucose 1 HR Post 98 mg/dL 70-160 4 finding Prandial CBC With No Diff 06/14/2016 White Blood Count 14.8 10^3/uL High 3.5-10.8 Red Blood Count 3.20 10^6/uL Low 4.0-5.4 Hemoglobin 10.3 g/dL Low 12.0-16.0 Hematocrit 31 % Low 35-47 Mean Corpuscular Volume 98 fL High 80-97 Mean Corpuscular Hemoglobin 32 pg High 27-31 Mean Corpuscular HGB Conc 33 g/dL 31-36 Red Cell Distribution Width 13 % 10.5-15 Platelet Count 360 10^3/uL 150-450 Mean Platelet Volume 9 um3 7.4-10.4 GC/Chlamydia Dna Probe 04/21/2016 Chlamydia trachomatis Rna Negative Negative Neisseria gonorrhoeae (GC) Rna Negative Negative Qnatal(TM) Advanced 04/15/2016 Number Of Fetuses? 1 Advanced Maternal Age? NO Abnormal BALBINA? NO Abnormal US? YES Personal/Fam History? NO Interpretation SEE BELOW 5 Trisomy 21 (T21) Negative Trisomy 18 (T18) Negative Trisomy 13 (T13) Negative Y Chromosome Not detected Y CHR. Interpretation SEE BELOW 6 Sex Chromosome No aneuploidy Sex Chromosome Interp SEE BELOW 7 Microdeletion Opted Out Microdeletion Interp SEE BELOW 8 Gestational Age (In Weeks) 18 Gestational Age (In Days) 1 Fraction 14.91% Laboratory Comments SEE BELOW 9 Limitations SEE BELOW 10 Specifications SEE BELOW 11 Methodology SEE BELOW 12 Qnatal(TM) Advanced 04/11/2016 Interpretation SEE NOTE 13 Urine Culture And 03/23/2016 Urine Culture SEE RESULT BELOW 14 Sensitivities Lead 03/23/2016 Lead <1.0 g/dL 0.0-4.9 15 Laboratory test finding 03/23/2016 Cytology SEE RESULT BELOW 16 PNL No Urine 03/23/2016 Rubella Screen Immune IU/mL Immune 17 Hemoglobin A1c 4.6 % Less than 6.0 18 Hepatitis B Surface Ag Nonreactive Nonreactive 19 Syphillis Igg W/Reflex RPR Nonreactive Nonreactive 20 HIV 1/2 AB Evaluation 03/23/2016 HIV 1 2 Antibody Nonreactive Nonreactive 21 Type And Screen 03/23/2016 Patient Blood Type O Positive Antibody Screen NEGATIVE CBC With No Diff 03/23/2016 White Blood Count 14.1 10^3/uL High 3.5-10.8 Red Blood Count 3.55 10^6/uL Low 4.0-5.4 Hemoglobin 11.5 g/dL Low 12.0-16.0 Hematocrit 36 % 35-47 Mean Corpuscular Volume 101 fL High 80-97 Mean Corpuscular Hemoglobin 33 pg High 27-31 Mean Corpuscular HGB Conc 32 g/dL 31-36 Red Cell Distribution Width 15 % 10.5-15 Platelet Count 338 10^3/uL 150-450 Mean Platelet Volume 9 um3 7.4-10.4 Thyroid Function 10/13/2015 Thyroid Stim Hormone 1.0 mIU/L 0.3-4.2 22 [place] [facility] test 08/07/2012 Cytology RUN DATE: 23 finding 08/08/ <SEE NOTE> Laboratory test 12/26/2011 Thyroxine Free 2.25 ng/dL High 0.61-1.24 24 finding T3 Total 2.90 NG/ML High 0.5-1.7 24 T3 Free 7.54 pg/mL High 2.39-6.79 24 TSH 0.09 MIU/ML Low 0.34-5.60 24 Surgical Pathology 12/10/2011 Surgical <SEE 25 Pathology NOTE> Laboratory test 12/05/2011 Thyroxine Free 1.59 ng/dL High 0.61-1. finding 24 T3 Total 2.93 NG/ML High 0.5-1.7 T3 Free 7.09 pg/mL High 2.39-6.79 TSH 0.11 MIU/ML Low 0.34-5.60 [facility] 11/23/2011 <SEE 26 NOTE> Laboratory test 10/27/2011 Thyroxine Free 1.37 ng/dL High 0.61-1.2 27 finding 4 T3 Total 2.46 NG/ML High 0.5-1.7 27 T3 Free 5.63 pg/mL 2.39-6.79 27 TSH 0.13 MIU/ML Low 0.34-5.60 27 Glucose 2HR Tolerance ([facility]) 09/20/2011 Fasting Glucose 83 mg/dL 70-110 28 1HR Glucose 95 mg/dL 28, 29 2HR Glucose 101 mg/dL 28, 30 CBC No Diff 09/20/2011 White Blood Count 15.4 CUMM High 4.8-10.8 28 Red Cell Count 3.74 CUMM Low 4.2-5.4 28 Hemoglobin 12.0 g/dL 12.0-16.0 28 Hematocrit 35 % 35-47 28 Mean Corpuscular Volume 93 um3 79-97 28 Mean Corpuscular Hemoglob 32 pg High 27-31 28 Mean Corpuscular HGB Cone 34 g/dL 32-36 28 Redcell Distribution WDTH 13 % 10.5-15 28 Platelet Count 313 CUMM 150-450 28 Mean Platelet Volume 9.8 um3 7.4-10.4 28 Laboratory test finding 09/20/2011 TSH 0.21 MIU/ML Low 0.34-5.60 28 Thyroxine Free 1.75 ng/dL High 0.61-1.24 28 Glucose Tolerance 2HR Obgyn (SEE NOTE) mg/dL 28, 31 Laboratory test finding 07/12/2011 TSH 0.09 MIU/ML Low 0.34-5.60 Thyroxine Free 1.78 ng/dL High 0.61-1.24 [facility] 07/12/2011 Lyme Igg Western Blot Negative Negative Lyme Igg Bands Detected No bands detecte <SEE NOTE> kDa () 32 Lyme Igm Western Blot Negative Negative Lyme Igm Bands Detected No bands detecte <SEE NOTE> kDa () 33 Lyme Disease Interpretation . () 34 GC/Chlamydia Aptima 07/12/2011 M <SEE 35 NOTE> Laboratory test 06/14/2011 Thyroxine Free 1.64 ng/dL High 0.61-1. finding 24 TSH 0.48 MIU/ML 0.34-5.60 CBC No Diff 06/14/2011 White Blood Count 12.1 CUMM High 4.8-10.8 Red Cell Count 4.06 CUMM Low 4.2-5.4 Hemoglobin 12.8 g/dL 12.0-16.0 Hematocrit 38 % 35-47 Mean Corpuscular Volume 94 um3 79-97 Mean Corpuscular Hemoglob 32 pg High 27-31 Mean Corpuscular HGB Cone 34 g/dL 32-36 Redcell Distribution WDTH 15 % 10.5-15 Platelet Count 335 CUMM 150-450 Mean Platelet Volume 9.8 um3 7.4-10.4 Type & Screen 06/14/2011 Patient Blood Type O POSITIVE Antibody Screen NEGATIVE Vad 06/14/2011 Vad Final NONREACTIVE Nonreactive 36 Syphilis Screen 06/14/2011 Syphilis IgG TNP Nonreactive RPR NON-REACTIVE Nonreactive RPR Titer TNP Pediatric/Maternal YES Prental PNL No Urine 06/14/2011 Hepatitis B Surface Ag Nonreactive Nonreactive Rubella Screen IMMUNE Immune Laboratory test 05/17/2011 Cytology <SEE 37 finding NOTE> Urine Culture & 05/17/2011 Urine Culture NG 38 Sensitivi Sensitivi Laboratory test 11/06/2008 Ristocetin 120 % 55-200 39 finding Cofactor (VWF) Laboratory test 10/31/2008 PTT (Aptt) 25.9 20.1-28. 40 finding 2 Protime 10/31/2008 Protime 11.0 10.9-13. 3 Inr 0.83 41 Laboratory test 10/15/2008 Genital For GRP B FINAL: NEGATIVE 42 finding Strep Only <SEE NOTE> Laboratory test 08/20/2008 PTT (Aptt) 25.2 20.1-28.2 43 finding Protime 08/20/2008 Protime 11.5 10.9-13.3 Inr 0.90 44 GC/Chlamydia Dna Probe 05/30/2008 GC By Aptima NEGATIVE Negative 45 CHL By Aptima NEGATIVE Negative 46 Urine Culture & 05/08/2008 Urine Culture Sensitivi NG 47 Sensitivi Laboratory test finding 04/16/2008 Cytology 48 <SEE NOTE> Gram Neg Spencer Sensitivity 04/16/2008 Ampicillin <=2 Amikacin <=2 Ciprofloxacin <=0.25 Cefazolin <=4 Nitrofurantoin <=16 on macrobid Gentamicin <=1 Imipenem <=1 Levofloxacin <=0.25 Meropenem <=0.25 Trimeth-Sulfa <=20 Tigecylcine <=0.5 Piperacillin/Tazobactam <=4 Urine Culture 04/16/2008 Urine Culture ESCHERICHIA COLI Sensitivi Sensitivi Laboratory test 04/16/2008 PTT (Aptt) 28.5 High 20.1-28.2 49 finding Protime 04/16/2008 Protime 12.6 10.9-13.3 Inr 1.08 50 Manual Diff PN 04/16/2008 Polysegmented Neutrophil 69 % 38-83 Band Neutrophil 2 % 0-8 Lymphocyte 21 % 5-47 Monocyte 1 % 0-13 Eosenophil 7 % High 0-6 Absolute Neutrophil Count 8.5 RBC Morphology NORMAL Vad 04/16/2008 Vad Final NONREACTIVE Nonreactive 51 1 TS 04/16/2008 Patient Blood Type O POSITIVE Antibody Screen NEGATIVE 1 04/16/2008 White Blood Count 12.0 CUMM High 4.8-10.8 Red Cell Count 3.29 CUMM Low 4.2-5.4 Hemoglobin 10.7 g/dL Low 12.0-16.0 Hematocrit 32 % Low 35-47 Mean Corpuscular Volume 96 um3 79-97 Mean Corpuscular Hemoglob 32 pg High 27-31 Mean Corpuscular HGB Cone 34 g/dL 32-36 Redcell Distribution WDTH 14 % 10.5-15 Platelet Count 330 CUMM 150-450 Mean Platelet Volume 8.4 um3 7.4-10.4 RPR NON REACTIVE Nonreactive Rubella Screen IMMUNE Immune Hepatitis B Surface Antigen Negative Negative 52 Hemoglobinopathy Evaluation 04/16/2008 Erythrocyte Count 3.33 Mill/uL Low 3.80-5.10 Hemoglobin 10.9 g/dL Low 11.7-15.5 Hematocrit 31.4 % Low 35.0-45.0 MCV 94.3 FL 80.0-100.0 MCH 32.7 pg 27.0-33.0 RDW 13.3 % 11.0-15.0 Hemoglobin A1 97.4 % >96.0 Hemoglobin F 0.1 % <2.0 Hemoglobin A2 2.5 % 1.8-3.5 Abnormal Hemoglobin 1 DNR Abnormal Hemoglobin 2 DNR Abnormal Hemoglobin 3 DNR Interpretation see note 53 1 SEE RESULT BELOW Name: CELY ESTEVEZ : [address]: Danny Kelley MD Acct: [id number] Unit: [id number] AGE: 27 Location: [facility] Re03/31/17 SEX: F Status: REG REF SPEC: [id number] BRENDEN: 03/31/17-[address]: Danny Kelley MD REQ: [id number] RECD: 04/03/17-1132 STATUS: SOUT _ ORDERED: LEVEL 4/2 COMMENTS: [id number] FINAL DIAGNOSIS 1. Uterus, endocervix, curettage: -- Benign endocervical mucosa with no significant pathologic abnormalities. 2. 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 PRE-OPERATIVE DIAGNOSIS Low grade squamous intraepithelial lesion GROSS DESCRIPTION 1. The specimen is received in formalin labeled, ECC, and consists of a brush-like device with adherent 1.3 x 0.7 x 0.3 cm aggregate of quintana irregular soft tissue fragments and mucus. The specimen is filtered and submitted entirely in one cassette. 2. The specimen is received in formalin labeled, Cervical Biopsy, and consists of a brush-like device with an adherent 0.5 x 0.4 x 0.1 cm aggregate of quintana possible soft tissue fragments. The specimen is filtered and submitted entirely in one cassette. Signed (signature on file) Grace Valenzuela MD [id number] END OF REPORT * ML=Testing performed at Main Lab DEPARTMENT OF PATHOLOGY, [address] [place] [address] Handy Garcia M.D. Director [facility] # [id number] 2 A NEGATIVE results indicates there is no evidence of membrane rupture. 3 SEE RESULT BELOW Name: CELY ESTEVEZ : [address]: Gwen Maurer MD Acct: [id number] Unit: [id number] AGE: 26 Location: [facility] Re08/11/16 SEX: F Status: REG REF SPEC: [id number] BRENDEN: 08/11/16-[address] [facility] [address]: Gwen Maurer MD REQ: [id number] RECD: 08/11/16 STATUS: COMP _ SOURCE: CER/VAG/RE SPDESC: ORDERED: Grp B Strp Scrn COMMENTS: [id number] QUERIES: Is Patient Penicillin Allergic? N Is patient penicillin allergic and/or sensitivities needed? N Provider Requisition # C77#[id number]_ Procedure Result Reported Site Group B Strep Culture Screen Final 08/13/16- 1042 ML Group B Strep Screen Negative * ML - MAIN LAB (PSYCHIATRIC) . END OF REPORT * ML=Testing performed at Main Lab DEPARTMENT OF PATHOLOGY, [address] [place] [address] Handy Garcia M.D. Director [facility] # [id number] 4 [id number] 5 This specimen showed expected representation of chromosome 21, 18, and 13 material. Microdeletion testing was not performed per clinician request. 6 Consistent with a female fetus. 7 No apparent abnormality was detected. See "Limitations" below. 8 Microdeletion testing was not performed per clinician request. 9 Laboratory results and submitted clinical information reviewed by Mikel Gallagher, Ph.D., [facility], [facility]. 10 This test has been validated on women with a suazo that is >=10 weeks gestational age. As such, the accuracy of this test for specimens drawn at less than 10 weeks gestation is unknown. In addition, there are limited data available for the performance of this test in multiple gestation pregnancies and for the detection of microdeletions. Specimens are analyzed for aneuploidies involving chromosomes 21, 18, 13, X, and Y, and microdeletions of the specified regions only. The Y chromosome is analyzed for the determination of sex, and the sensitivity and specificity of this analysis may be less than that of the autosome analysis. Sex chromosome aneuploidy analysis is not performed for multiple gestation pregnancies. Aneuploidies involving chromosomes other than those specified above or abnormalities involving chromosomal regions other than those specified are not included in this testing. While the results of this test are highly accurate, not all of the chromosome abnormalities interrogated may be detected due to maternal, placental, or mosaicism, or other unexplained causes. The accuracy of the test results may also be affected by the presence of chromosome abnormalities or copy number variations that are maternal in origin, or by vanishing twin syndrome in a multiple gestation . Circulating cell-free DNA screening does not replace the precision of diagnosis using chorionic villus sampling or amniocentesis. It does not assess the risk of anomalies such as neural tube defects or ventral wall defects, and should not be considered in isolation from other clinical findings and laboratory test results. Management decisions, including termination, should not be based solely on the results of cell-free DNA screening. A negative test result does not ensure an unaffected . The healthcare provider is responsible for the use of this information in the management of his/her patient. Health care providers, please contact your local [facility] genetic counselor or call [facility] Client [facility] at [email or web address] ([phone]) for assistance with interpretation of these results. 11 Sensitivity Specificity T21 >99.9% >99.9% T18 >99.9% >99.9% T13 >99.9% >99.9% Accuracy Y >99.9% Performance of the [facility] laboratory-developed test (LDT) has been determined based on internal analytical assessment. 12 Circulating cell-free (cf) DNA was isolated from plasma. It was then detected on a massively parallel sequencing platform. Bioinformatic analysis was performed to determine the representation of DNA in the specimen, especially material from chromosomes 21, 18, and 13. The representation of other material, including the sex chromosomes (X and Y) and select chromosomal regions (22q, 15q, 11q, 8q, 5p, 4p 1p), was also evaluated and will only be reported as "Additional Chromosome Results" when an abnormality is detected. This test was developed and its performance characteristics have been determined by [facility]. It has not been cleared or approved by the U.S. Food and Drug Administration. The FDA has determined that such clearance or approval is not necessary. Performance characteristics refer to the analytical performance of the test. This test is performed pursuant to a license agreement with [employer]. This test was developed and its analytical performance characteristics have been determined by [facility]. It has not been cleared or approved by FDA. This assay has been validated pursuant to the CLIA regulations and is used for clinical purposes. 13 Test not performed. No suitable specimen received. 14 SEE RESULT BELOW Name: CELY ESTEVEZ : [address]: Zaina ADAME Acct: [id number] Unit: [id number] AGE: 26 Location: [facility] Re03/23/16 SEX: F Status: REG REF SPEC: [id number] BRENDEN: 03/23/16-[address]: Zaina ADAME REQ: [id number] RECD: 03/23/16 STATUS: COMP _ SOURCE: URINE SPDESC: ORDERED: Urine Culture COMMENTS: [facility] [id number] Procedure Result Reported Site Urine Culture Final 03/24/16- 1628 ML No Growth (<1,000 CFU/mL) * ML - MAIN LAB ([facility]) . END OF REPORT * ML=Testing performed at Main Lab DEPARTMENT OF PATHOLOGY, [address] [place] [address] Handy Garcia M.D. Director [facility] # [id number] ADDITIONAL INFORMATION Testing performed by Inductively Coupled Plasma-Mass Spectrometry (ICP-MS). This test was developed and its performance characteristics determined by [facility] in a manner consistent with CLIA requirements. This test has not been cleared or approved by the U.S. Food and Drug Administration. 16 SEE RESULT BELOW Name: CELY ESTEVEZ : [address]: Zaina ADAME Acct: [id number] Unit: [id number] AGE: 26 Location: [facility] Re03/23/16 SEX: F Status: REG REF SPEC: [id number] BRENDEN: 03/23/16-[address] [facility] [address]: Zaina ADAME REQ: [id number] RECD: 03/24/16-0202 STATUS: SOUT _ ORDERED: IMAGE ANALYSIS, PAP SM PATH REV COMMENTS: [id number] FINAL DIAGNOSIS EPITHELIAL CELL ABNORMALITIES Low grade squamous intraepithelial lesion (LSIL) A. Ectocervical/Endocervical Specimen Adequacy: Satisfactory of evaluation Transformation zone component identified Patient Information: HPV: Thin Layer Pap Test w/reflex to high risk HPV RNA testing when ASCUS Actual Specimen Date: 03/23/16 Last Menstrual Date: 12/20/15 Date of Last Specimen: 08/07/12 ?: Y Signed (signature on file) Handy Garcia MD 1053 This Pap test was evaluated with the assistance of the SmartlingPrep Test Imaging System. Due to cytologic findings at the pet nutrition specialist microscope, comprehensive manual rescreening by a Pay Station Department Manager may be required. The Pap Smear is a screening test designed to aid in the detection of premalignant and malignant conditions of the uterine cervix. It is not a diagnostic procedure and should not be used as the sole means of detecting cervical cancer. Both false- positive and false- negative reports do occur. Depending on your risk status, a Pap smear should be obtained and evaluated every 1-3 years. END OF REPORT * ML=Testing performed at [facility] Lab DEPARTMENT OF PATHOLOGY, [address] [place] [address] Handy Garcia M.D. Director [facility] # [id number] 17 [id number] Therapeutic target for the treatment of diabetes Mellitus patients is <7% HBA1C, and in selective patients <6.0%.Please refer to [place] [employer] Diabetic care guidelines for further information. 19 [id number] Warning: A positive result is not useful for establishing a diagnosis of syphilis. In most situations, such a result may reflect a prior treated infection; a negative result can exclude a diagnosis of syphilis except for incubating or early primary disease. 21 It is recognized that currently available assays for the detection of antibodies to HIV-1 and/or HIV-2 may not detect all infected individuals. HIV antibodies may be undetectable in some stages of the infection and in some clinical conditions. The performance of this assay has not been established for populations of infants or children. Assayed by Chemiluminescence Microparticle Immunoassay on the Siemens Advia Centaur CP. Values obtained with different methods or kits cannot be used interchangeably.The diagnostic specificity of the ADVIA Centaur 1/O/2 Enhanced assay in the low risk population was 99.90% (6052/6058) with a 95% confidence interval of 99.78 to 99.96%. 22 Test Performed by: [address] [address] Appeals Board Referee: Ken Rojas II, M.D., Ph.D. 23 RUN DATE: 08/08/12 [facility] LAB LIVE PAGE 1 RUN TIME: [address] [place] [address] Specimen Inquiry Name: CELY ESTEVEZ : [address]: Christie Pearson NP Acct: [id number] Unit: [id number] AGE: 22 Location: [facility] Re08/07/12 SEX: F Status: REG REF SPEC: [id number] BRENDEN: 08/07/12-[address]: Christie Pearson NP REQ: [id number] RECD: 08/08/12 STATUS: SOUT _ ORDERED: IMAGE ANALYSIS Negative for Intraepithelial lesion or Malignancy A. Ectocervical/Endocervical Specimen Adequacy: Satisfactory of evaluation Transformation zone component identified Patient Information: HPV: Thin Layer Pap Test w/reflex to high risk HPV DNA testing when ASCUS Actual Specimen Date: 08/07/12 LMP If Unknown: Unknown Date of Last Specimen: 05/17/11 ?: N Post Menopausal?: N Hysterectomy?: N Previous Abnormal Pap Smears?:N Signed (signature on file) Anila Wilder CT (ASCP) 08/08/12 4711 This Pap test was evaluated with the assistance of the [employer] ([employer])p Test Imaging System. Due to cytologic findings at the pet nutrition specialist microscope, comprehensive manual rescreening by a Pay Station Department Manager may be required. The Pap Smear is a screening test designed to aid in the detection of premalignant and malignant conditions of the uterine cervix. It is not a diagnostic procedure and should not be used as the sole means of detecting cervical cancer. Both false- positive and false- negative reports do occur. Depending on your risk status, a Pap smear shoudl be obtained and evaluated every 1-3 years. END OF REPORT * ML=Testing performed at Main Lab DEPARTMENT OF PATHOLOGY, [address] [place] [address] Handy Garcia M.D. Director [facility] Permit #[id number] [address] Lopez. Pt was seen on 12/29/11. Pt has f/u in 1 month. Pt had dose increase of methimazole.( 10 mg daily/pt has been compliant) 25 ---- RUN DATE: 12/13/11 [facility] NMI LIVE PAGE 1 RUN TIME: 1406 Specimen Inquiry RUN USER: INTERFACE -- Name: CELY ESTEVEZ Status: DIS IN Re12/10/11 Age/Sex: 21/F Unit#: [id number] Location: [address] [place], [place] [address]B. : [birth year] -- Specimen: [id number] SOUT Spec Date:12/10/11- Subm Dr: Gwen Chaney MD Spec Type: SURGICAL P Received:12/12/11-1013 Copies to: SPECIMEN PLACENTA HISTORY PRE-OP DIAGNOSIS: Transverse lie GROSS DESCRIPTION The specimen is received in formalin labelled Cely Estevez Placenta, and consists of a placenta with attached cord and membranes. The placental disc measures 23.0 x 16.0 x 2.0 cm. and has a inserted 16.0 by up to 1.5 cm. three vessel, yellow-white umbilical cord which attaches 5.0 cm. from the placental margin. An additional segment of umbilical cord is also submitted in the specimen container measuring 18.0 cm. in length. The surface is glistening and blue to gurrola. The maternal surface has normal cotyledons with a purple-red cut surface. The membranes are thin, translucent, and pliable. Surgical Aides Teacher sections, two cassettes. DIAGNOSIS Placenta: A. Third trimester placenta with umbilical cord with three blood vessels. B. Unremarkable membranes. Signed Electronically by: DENISE CHAKRABORTY 12/13/11 1406 -- -- DEPARTMENT OF PATHOLOGY, [address] [place] [address] [facility] Permit #[id number] Maren Braden M.D. Wildlife Control Agent Dir rosio -- 26 RUN DATE: 11/25/11 [facility] NMI LIVE PAGE 1 RUN TIME: 1057 Specimen Inquiry RUN USER: INTERFACE Name: CELY ESTEVEZ Status: REG REF Re11/23/11 Age/Sex: 21/F Unit#: [id number] Location: [facility] : [birth year] SPEC #: [id number] BRENDEN: 11/23/11-1034 STATUS: COMP REQ #: [id number] RECD: 11/23/[address] [facility] [address]: Manda Field CNM SOURCE: GENITAL ENTR: 11/23/11 [facility] DR: HUNTERESC: VAG/RECT ORDERED: GENITAL CULTURE QUERIES: MEDENT REQUISITION # [id number] ACT WKST: B 11/25/11 #1 Procedure Result Verified Site > GENITAL CULTURE Final -1057 ML NORMAL GENITAL DELLA [facility] Permit #[id number] [address] [place] [address] DEPARTMENT OF PATHOLOGY, [address] [place] [address] [facility] Permit #[id number] Maren Braden M.D. Acid Leveler 27 NON FASTING 28 2HR GTT 1HR SERUM 1HR GLUCOSE from 0131:[id number]. 2HR GTT FAST SERUM FASTING GLUCOSE from 0131:[id number]. 2HR GTT 2HR SERUM 2HR GLUCOSE from 0131:[id number]. 29 REFERENCE RANGE: 20-50 MG/DL ABOVE FASTING 30 REFERENCE RANGE: 5-15 MG/DL ABOVE FASTING 31 GTT NORMAL RANGES FOR OBSTETRICS PER THE [employer] (ACOG) Based on 50 gm dose: Based on 100 gm dose: 1hr <140 mg/dl Fasting <95 mg/dl 1hr <180 mg/dl 2hr <155 mg/dl 3hr <140 mg/dl 32 No bands detected 33 No bands detected 34 Specific serologic response to B. burgdorferi infection is not detected, but cannot rule out early infection during which low or undetectable antibody levels to B. burgdorferi may be present. If clinically indicated, a new serum specimen should be submitted in 7-14 days. CDC criteria require >=5 bands for IgG or >=2 bands for IgM for the Western blot to be considered positive. Bands (e.g.,p41) may be detected in patients without Lyme disease, and patterns not meeting the CDC criteria should be interpreted with caution. Western blot should be ordered only on specimens that are positive or equivocal by a FDA-licensed Lyme disease antibody screening test (e.g., EIA). Test performed by Immunoblot. Test Performed by: [facility] Dpt of Lab Med and Pathology [address] [place] [address] Appeals Board Referee: Josef Saavedra III, M.D. 35 RUN DATE: 07/13/11 [facility] NMI LIVE PAGE 1 RUN TIME: 1526 Specimen Inquiry RUN USER: INTERFACE Name: CELY ESTEVEZ Status: REG REF Re07/12/11 Age/Sex: 21/F Unit#: [id number] Location: [facility] : [birth year] SPEC #: [id number] BRENDEN: 07/12/11 STATUS: COMP REQ #: [id number] RECD: 07/12/[address]: Precious Patiño CNM SOURCE: URINE ENTR: 07/12/[address]: CATYC: ORDERED: GC/CHL APTIMA QUERIES: MEDENT REQUISITION # [id number] ACT WKST: GCCHL 07/13/11 #1 Procedure Result Verified Site > CHLAMYDIA TRACHOMATIS RNA Final -1526 ML NEGATIVE FOR CHLAMYDIA TRACHOMATIS rRNA A negative result does not preclude the presence of a C.trachomatis or N.gonorrhoeae infection because results are dependent on adequate specimen collection, absence of inhibitors, and sufficient rRNA to be detected. Test results may be affected by improper specimen collection, improper specimen storage, technical error, or specimen mixup. Limitations of the Procedure: The Aptima Combo 2 Assay is not intended for the evaluation of suspected sexual abuse or for other medico-legal indications. For those patients for whom a false positive result may have adverse psychosocial impact, the CDC recommends retesting by a method using an alternate technology. Therapeutic failure or success cannot be determined with the Aptima Combo 2 Assay since nucleic acid may persist following appropriate antimicrobial therapy. Results from the APTIMA Combo 2 Assay should be interpreted in conjunction with other laboraotry and clinical data available to the clinician. Performance characteristics for detecting C. trachomatis and N. gonorrhoeae are derived from high prevalence populations. Positive results in low prevalence populations should be interpreted carefully with the understanding that the likelihood of a false positive may be higher than a true positive. DEPARTMENT OF PATHOLOGY, [address] [place] [address] [facility] Permit #[id number] Handy Garcia M.D. Director Denise Chakraborty M.D. Acid Leveler RUN DATE: 07/13/11 [facility] NMI LIVE PAGE 2 RUN TIME: 1526 Specimen Inquiry RUN USER: INTERFACE Name: CELY ESTEVEZ Status: REG REF Re07/12/11 Age/Sex: 21/F Unit#: [id number] Location: [facility]. : [birth year] -- -- CONTINU ED Procedure Result Verified Site > GC (N. GONORRHOEAE) RNA Final -1526 ML NEGATIVE FOR NEISSERIA GONORRHOEAE rRNA A negative result does not preclude the presence of a C.trachomatis or N.gonorrhoeae infection because results are dependent on adequate specimen collection, absence of inhibitors, and sufficient rRNA to be detected. Test results may be affected by improper specimen collection, improper specimen storage, technical error, or specimen mixup. Limitations of the Procedure: The Aptima Combo 2 Assay is not intended for the evaluation of suspected sexual abuse or for other medico-legal indications. For those patients for whom a false positive result may have adverse psychosocial impact, the CDC recommends retesting by a method using an alternate technology. Therapeutic failure or success cannot be determined with the Aptima Combo 2 Assay since nucleic acid may persist following appropriate antimicrobial therapy. Results from the APTIMA Combo 2 Assay should be interpreted in conjunction with other laboraotry and clinical data available to the clinician. Performance characteristics for detecting C. trachomatis and N. gonorrhoeae are derived from high prevalence populations. Positive results in low prevalence populations should be interpreted carefully with the understanding that the likelihood of a false positive may be higher than a true positive. [facility] Permit #[id number] [facility] [address] DEPARTMENT OF PATHOLOGY, [facility] [place], [place] [address] [place] Permit #[id number] Handy Garcia M.D. Director Denise Chakraborty M.D. Acid Leveler 36 FINAL INTERPRETATION: No HIV antibody is detected. . This information has been disclosed to you from confidential records which are protected by [facility] law. State law prohibits you from making further disclosure of this information without the specific written consent of the person to whom it pertains, or as otherwise permitted by law. Any unauthorized further disclosure in violation of state law may result in a fine or penitentiary sentence or both. General authorization for the release of medical or other information is not, except in limited circumstances set forth in Part 63, Title 10, of [facility], sufficient authorization for further disclosure. Disclosure of confidential HIV information that occurs as the result of a general authorization for the release of medical or other information will be in violation of the state law and may result in a fine or a penitentiary sentence. . 37 ---- RUN DATE: 05/19/11 [facility] NMI LIVE PAGE 1 RUN TIME: 1141 Specimen Inquiry RUN USER: INTERFACE -- Name: CELY ESTEVEZ Status: REG REF Re05/17/11 Age/Sex: 21/F Unit#: [id number] Location: [facility] [place] : 88 -- Specimen: [id number] [place] Spec Date: 05/17/[address]: Gwen hooper CNM Spec Type: CYTOLOGY Received: 05/19/11-836 Copies to: SOURCE ECTOCERVICAL/ENDOCERVICAL Thin Prep with Reflex HPV Test PATIENT INFORMATION ACTUAL COLLECTION DATE: 05/17/11 ? Yes LAST MENSTRUAL PERIOD: 03/24/11 PATIENT HISTORY: Unknown ADEQUACY OF SPECIMEN Satisfactory for evaluation * Transformation zone component identified * DIAGNOSIS NEGATIVE FOR INTRAEPITHELIAL LESION OR MALIGNANCY * This Pap test was evaluated with the assistance of the ThinPrep Pap Test Imaging System. The Pap Smear is a screening test designed to aid in the detection of premalign ant and malignant conditions of the uterine cervix. It is not a diagnostic procedure a nd should not be used as the sole means of detecting cervical cancer. Both false- positiv e and false-negative reports do occur. Depending on your risk status, a Pap smear stephanie uld be obtained and evaluated every one to three years. Initial evaluation performed by Kristie BRAXTON([facility]) 05/19/11 Final Interpretation electronically signed by: Kristie BRAXTON([facility]) 05/19/11 1140 -- -- DEPARTMENT OF PATHOLOGY, [address] [place] [address] [facility] Permit #[id number] Maren Braden M.D. Wildlife Control Agent Dir avelar -- 38 FINAL: NO GROWTH DAY 2 (<1,000 CFU/mL) 39 Test Performed by: [facility] Dpt of Lab Med and Pathology [address] [place] [address] Appeals Board Referee: Josef Saavedra III, M.D. 40 PLEASE NOTE NEW REFERENCE RANGE EFFECTIVE 08. 41 PATRICK VALUE=2.01 ( OF 07/27/07 Recommended INR for Patients on Oral Anticoagulants Prophylaxis 2.0 - 3.0 Treatment of thrombosis 2.0 - 3.0 Prevention of embolism 2.0 - 3.0 Prevention of embolism from prosthetic heart valves 2.5 - 3.5 42 FINAL: NEGATIVE FOR GROUP B STREPTOCOCCUS 43 PLEASE NOTE NEW REFERENCE RANGE EFFECTIVE 08. 44 PATRICK VALUE=2.01 ( OF 07/27/07 Recommended INR for Patients on Oral Anticoagulants Prophylaxis 2.0 - 3.0 Treatment of thrombosis 2.0 - 3.0 Prevention of embolism 2.0 - 3.0 Prevention of embolism from prosthetic heart valves 2.5 - 3.5 45 . A negative result does not preclude the presence of a C.trachomatis or N.gonorrhoeae infection because results are dependent on adequate specimen collection, absence of inhibitors, and sufficient rRNA to be detected. Test results may be affected by improper specimen collection, improper specimen storage, technical error, or specimen mixup. . 46 . A negative result does not preclude the presence of a C.trachomatis or N.gonorrhoeae infection because results are dependent on adequate specimen collection, absence of inhibitors, and sufficient rRNA to be detected. Test results may be affected by improper specimen collection, improper specimen storage, technical error, or specimen mixup. . 47 FINAL: NO GROWTH DAY 2 (<1,000 CFU/mL) 48 ---- RUN DATE: 04/17/08 [facility] NMI LIVE PAGE 1 RUN TIME: 1132 Specimen Inquiry RUN USER: INTERFACE -- Name: CELY ESTEVEZ Status: REG REF Re04/16/08 Age/Sex: 18/F Unit#: [id number] Location: [facility] : [birth year] -- Specimen: [id number] [facility] Date: 04/16/[address] [facility] [address]: Kimberlyn Benitez HOSPITAL CLINIC ASSISTANT Spec Type: CYTOLOGY Received: 04/17/08 Copies to: SOURCE ECTOCERVICAL/ENDOCERVICAL Thin Prep with Reflex HPV Test PATIENT INFORMATION ACTUAL COLLECTION DATE: 04/16/08 ? YES LAST MENSTRUAL PERIOD: 02/07/08 PATIENT HISTORY: Prior Elsewhere ADEQUACY OF SPECIMEN Satisfactory for evaluation * Transformation zone component identified * DIAGNOSIS NEGATIVE FOR INTRAEPITHELIAL LESION OR MALIGNANCY * This Pap test was evaluated with the assistance of the ThinPrep Pap Test Imaging System. The Pap Smear is a screening test designed to aid in the detection of premalign ant and malignant conditions of the uterine cervix. It is not a diagnostic procedure a nd should not be used as the sole means of detecting cervical cancer. Both false- positive and false-negative reports do occur. Depending on your risk status, a Pap smear stephanie uld be obtained and evaluated every one to three years. Final Interpretation electronically signed by: Imelda WILDER([facility]) 04/17/08 113 2 -- -- DEPARTMENT OF PATHOLOGY, [address] [place] [address] [facility] Permit #[id number] Handy Garcia M.D. Director of Laboratories -- 49 PLEASE NOTE NEW REFERENCE RANGE EFFECTIVE 08. 50 PATRICK VALUE=2.01 ( OF 07/27/07 Recommended INR for Patients on Oral Anticoagulants Prophylaxis 2.0 - 3.0 Treatment of thrombosis 2.0 - 3.0 Prevention of embolism 2.0 - 3.0 Prevention of embolism from prosthetic heart valves 2.5 - 3.5 51 FINAL INTERPRETATION: No HIV antibody is detected. . This information has been disclosed to you from confidential records which are protected by [facility] law. State law prohibits you from making further disclosure of this information without the specific written consent of the person to whom it pertains, or as otherwise permitted by law. Any unauthorized further disclosure in violation of state law may result in a fine or penitentiary sentence or both. General authorization for the release of medical or other information is not, except in limited circumstances set forth in Part 63, Title 10, of [place], sufficient authorization for further disclosure. Disclosure of confidential HIV information that occurs as the result of a general authorization for the release of medical or other information will be in violation of the state law and may result in a fine or a penitentiary sentence. . 52 Test Performed by: [facility] Dpt of Lab Med and Pathology [address] [place], [place] [id number] Appeals Board Referee: Josef Saavedra III, M.D. 53 INTERPRETATION: NORMAL ADULT PATTERN By high-pressure liquid chromatography (HPLC), there is a normal adult pattern of hemoglobins and normal levels of HbA2 and HbF are present. No variant hemoglobins or microcytosis are observed. This is consistent with A/A phenotype. Results were reviewed and interpreted by Beth Rosado M.D., (telephone no. ). Procedures Date CPT Code Description Status 03/31/2017 68028 Colposcopy W/Biopsy Cervix/Endocervical Curettage Completed 09/09/2016 68328 Delivery Only Completed 09/09/2016 87346 Delivery Routine Completed 09/09/2016 13319 Ligation/Transection Fallopian Tubes During Surgery Completed 09/01/2016 57039 Non-Stress Test Completed 05/03/2016 30162 Colposcopy Of The Cervix Inc Upper/Adjacent Vagina Completed 04/21/2016 90864 Echography Uterus Complete Completed 03/23/2016 52892 Echography Uterus Complete Completed 03/23/2016 05379 Echography Uterus Complete Completed 12/10/2011 04613 Delivery Routine Completed 12/10/2011 87128 Delivery Only Completed 11/23/2011 39638 Echography Uterus Follow-Up Or Repeat Completed 10/05/2011 91676 Echography Uterus Follow-Up Or Repeat Completed 08/09/2011 76502 Echography Uterus Complete Completed 06/14/2011 27562 Nuchal Translucency Ultrasound /First Completed Gestation 11/07/2008 19002 Obstetric Care Routine Completed 11/06/2008 18408 Non-Stress Test Completed 11/05/2008 77390 Non-Stress Test Completed 06/27/2008 45640 Echography Uterus Complete Completed 05/07/2008 28737 Nuchal Translucency Ultrasound /First Completed Gestation 05/07/2008 67566 Nuchal Translucency Ultrasound /First Completed Gestation Encounters Type Date Location Provider CPT E/M Dx Office Visit 11/03/2017 10:40a [facility] Office Danny Kelley M.D. 90083 N87.0 Office Visit 10/27/2016 11:30a [place] [address] B37.89 Office Visit 09/28/2016 9:20a [facility] EDWARDO Melgar 36916 Z09 Office Visit 09/02/2016 9:00a [place] [address] O34.211 Z01.818 Office Visit 09/01/2016 10:49a Delivery Danny Kelley M.D. 86555 O47.1 Office Visit 10/13/2015 10:20a [facility] Danny Kelley M.D. 52812 D34 N80.6 Office Visit 04/23/2015 3:00p [facility] Danny Kelley M.D. 85278 215.5 Office Visit 08/19/2013 11:00a [facility] [place] [address] V72.31 V76.2 Office Visit 08/07/2012 1:00p [facility] [place] [address] V72.31 V76.2 V25.8 Office Visit 11/23/2011 10:00a [facility] Danny Kelley 10370 652.93 M.D. Office Visit 11/06/2008 10:35[place] [address] 644.13 Office Visit 11/05/2008 1:29p Non - Surgical April Marquez NP, [facility] 55259 655.73 Hospital Office Visit 09/01/2008 11:00a [facility] Office Danny Kelley 70010 786.9 M.D. Office Visit 05/08/2008 11:20a [facility] Office Danny Kelley 96501 V22.1 MPeterDPeter V67.9 V26.33 Plan of Care No Information Available
[2017-11-23 14:24] VITALS: BP 100/62
[2017-11-23] MEDS ORDERED: Meclizine TAB* 12.5 MG PO ONE (14:24)
--- NOTE | 2017-11-23 14:55 | UC ---
Dizzy HPI HPI Summary: patient is a 27-year-old female presenting to the with a chief complaint of dizziness after moving from sitting to standing approximately 1 hour prior to arrival. She states she has had this in the past, which has been worse with cerumen buildup. Denies any dizziness at this time. She states the symptoms lasted for approximately 10 minutes. She also endorses a smoking history, denies eating this morning. Endorses drinking a small amount. She feels somewhat dehydrated. Denies any cardiac history. Denies any heart palpitations , chest pain, shortness of breath. Denies any blurry vision, double vision or headache. - History Of Current Complaint Chief Complaint: UCDizziness Stated Complaint: DIZZINESS Time Seen by Provider: 11/23/17 14:16 Hx Obtained From: Patient Hx Last Menstrual Period: 11/20/17 ?: No Onset/Duration: Sudden Onset Timing: Constant Severity Initially: Mild Severity Currently: Mild Pain Intensity: 2 Pain Scale Used: 0-10 Numeric Character: Dizzy Aggravating Factor(s): Nothing Alleviating Factor(s): Nothing - Risk Factors Cardiac Risk Factors: Negative CVA Risk Factor: Negative - Allergies/Home Medications Allergies/Adverse Reactions: Allergies Allergy/AdvReac Type Severity Reaction Status Date / Time ENVIRONMENTAL Allergy Mild Unknown Uncoded 11/23/17 14:18 Reaction Details Home Medications: Home Medications Cetirizine* [ZyrTEC 10 MG TAB*] 10 mg PO DAILY 11/23/17 [History Confirmed 11/23] Escitalopram (NF) [Lexapro 10 mg (NF)] 10 mg PO DAILY 11/23/17 [History Confirmed 11/23/17] PMH/Surg Hx/FS Hx/Imm Hx Previously Healthy: Yes - Surgical History Surgical History: Yes Surgery Procedure, Year, and Place: PARTIAL THYROIDECTOMY, -[facility]. 2XC-SECTION , ENDOMETRIOSIS-[facility]. ORAL SURGERY, -DENTAL OFFICE AGE 10 - Family History Known Family History: Positive: Hypertension, Diabetes Negative: Respiratory Disease - Social History Occupation: Employed Part-time Lives: With Family Alcohol Use: None Substance Use Type: None Smoking Status (MU): Light Every Day Tobacco Smoker Type: Cigarettes Amount Used/How Often: 1 PPD smoker since age 12 Have You Smoked in the Last Year: Yes Household Exposure Type: Cigarettes - Immunization History Most Recent Influenza Vaccination: up to date Most Recent Tetanus Shot: up to date Most Recent Pneumonia Vaccination: none Review of Systems Constitutional: Negative Skin: Negative Respiratory: Negative Cardiovascular: Negative Gastrointestinal: Negative Motor: Negative Neurovascular: Negative Musculoskeletal: Negative Neurological: Negative Psychological: Anxious Is Patient Immunocompromised?: No All Other Systems Reviewed And Are Negative: Yes Physical Exam Triage Information Reviewed: Yes Appearance: Well-Appearing, Well-Nourished Vital Signs: Initial Vital Signs Temp 97.6 F 11/23/17 14:20 Pulse 66 11/23/17 14:20 Resp 16 11/23/17 14:20 BP 100/62 11/23/17 14:20 Pulse Ox 100 11/23/17 14:20 Vital Signs Reviewed: Yes Eye Exam: Normal Eyes: Positive: Conjunctiva Clear Neck exam: Normal Neck: Positive: Supple, No Lymphadenopathy Respiratory Exam: Normal Respiratory: Positive: Chest non-tender, Lungs clear Cardiovascular Exam: Normal Cardiovascular: Positive: RRR Musculoskeletal Exam: Normal Musculoskeletal: Positive: Strength Intact Neurological Exam: Normal Neurological: Positive: Alert Psychological: Positive: Normal Response To Family Dizzy Course/Dx - Course Course Of Treatment: During the course of treatment, the patient is evaluated for dizziness. One episode dizziness occurred while going from sitting to standing. She states symptoms resolved when she sat back down. She states she has had this similar complaint in the past when she had cerumen buildup. She denies symptoms currently. She denies any cardiac history although states her heart experiences some fluttering intermittently, about twice per day. On arrival, she is feeling improved. EKG shows NSR. I will offer a cardiology consult as symptoms of "heart fluttering" has been present for several months. - Differential Dx/Diagnosis Differential Diagnosis/HQI/PQRI: Benign Paroxysmal Positional Vertigo, Vasovagal Reaction Provider Diagnoses: Orthostatic Hypotension Discharge - Sign-Out/Discharge Documenting (check all that apply): Discharge - Discharge Plan Condition: Stable Disposition: HOME Patient Education Materials: Near Syncope (ED) Referrals: Sharita Leahy MD [Primary Care Provider] - Dayron Nye MD [Medical Doctor] - Additional Instructions: Please follow up with Cardiology for any worsening chest fluttering symptoms Also, please follow up with your PCP Today, we have flushed out the ears If you develop any worsening dizziness, you may return to the - Billing Disposition and Condition Condition: STABLE Disposition: HOME
== END 2017-11-23 15:20 | disposition home or self-care (01) ==
LOC: UCEAST 14:08
DX: I95.1 Orthostatic hypotension (principal); F17.210 Nicotine dependence, cigarettes, uncomplicated
CPT/HCPCS: 93005; 99213; A9270-GY; G0463

== ENCOUNTER 2018-09-28 06:00 | Inpatient (IN) | payer OTHER ==
[~2018-09-28 06:00] MED LIST: Buffered Lidocaine 1% SYRIN* 1 ML/SYRINGE INTRADERM ONE; Famotidine IV* 10 MG/ML 2 ML (20 mg) IV ONE; Lactated Ringers 1000 ML Bag* 1,000 ML IV SCH; Sodium Citrate/Citric Acid* 15 ML UDC PO ONE
--- OUTSIDE RECORDS SUMMARY | 2018-09-28 06:04 | XMS REPORT | Continuity of Care Document ---
:1990 External Reference #:[id number] Author Name Trevor Cat Care Team Providers Name Role Phone Sharita Leahy MD Primary Care Physician Unavailable Payers Type Date Identification Numbers Payment Provider Subscriber Effective: 2014 Policy Number: [id number] [facility] Cely Estevez PayID: [id number] [address] [address] [place] [address] Advance Directives Description No Information Available Problems Date Description Provider Status Onset: 11/15/2011 Thyroid dysfunction during Manda Field CNM Resolved - baby not yet delivered Resolved: 03/27/2018 Onset: 11/23/2011 Peptic reflux disease Manda Field CNM Resolved Resolved: 03/27/2018 Onset: Problem Resolved Resolved: 03/27/2018 Family History Date Family Member(s) Problem(s) Comments Father Mental Illness Mother Hypertension First Son Seasonal Allergies Second Son Seasonal Allergies First Daughter A&W First Sister Asthma Second Sister Asthma Paternal Grandfather Unknown Paternal Grandmother Unknown Maternal Grandfather due to Diabetes () Maternal Grandmother due to Natural Causes () Social History Type Date Description Comments Sex Unknown Education Highest level of education completed is 12th grade Marital Status Patient is Living Situation Lives with spouse, son and daughter. 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 Cigarette Use Current cigarette smoker 1/2 PPD, down from 1 PPD prior to Alcohol Does not drink alcohol Tobacco Use Start: Unknown Patient is a current smoker, smokes every day Drug Use Does not currently use illegal drugs Smoking Status Reviewed: 11/03/17 Patient is a current smoker, smokes every day Daily Caffeine Drinks on average 2 sodas a day sometimes coffee STD's No STD history GABRIEL: 03/20/2012 Estimated Date of Based on 1st Ultrasound Delivery Allergies, Adverse Reactions, Alerts Description No Known Drug Allergies Medications Medication Date Status Form Strength Qnty SIG Indications Ordering Provider Maternity 07/11/ Active Device 1units Sized to R10.2 Erianna Support Belt 2017 patient. Denis, Use as CNM directed Mucinex D 05/24/ Active Tablets ER 60-600mg 30tabs 1 po bid Gwen 2017 12HR MD Erasto Cetirizine HCL / Active Tablets 10mg Unknown 0000 Escitalopram / Active Tablets 10mg 1 by mouth Unknown Oxalate 0000 every day Flintstones / Active Chewtabs 60mg Unknown Complete 0000 Tripple Nipple 10/27/ Hx Misc Phaelon Cream 2017 - MD Bettie 2016 Diflucan 10/17/ Hx Tablets 100mg 30tabs take 1 Gwen 2016 - tablet by Erasto 10/25/ mouth two 2017 times a day for 14 days Breast Pump 10/11/ Hx Misc 1units double Danny APeter 2016 - electric Gelber, 10/25/ breast M.D. 2017 pump for lactating mother Hydroxyzine 09/16/ Hx Capsules 50mg 60caps Take 1 by Danny Velez Pamoate 2016 - mouth Gelber, 10/26/ every six M.D. 2017 hours as needed for anxiety Motrin 09/15/ Hx Tablets 600mg 30tabs Q6H prn Unknown Sharita 2017 - For Pain 2016 Percocet 09/10/ Hx Tablets 5-325mg 40tabs Q4H prn Unknown 2017 - For 09/15/ Moderate 2017 Pain Ferrous 06/28/ Hx Tablets 325(36Fe) 90tabs 1 by mouth Gwen Gluconate 2016 - mg daily Erasto 03/31/ 2017 Ferrous 06/15/ Hx Tablets 324(38Fe) 60tabs 1 by mouth Danny Velez Gluconate 2016 - mg every day Gelber, 06/28/ M.D. 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 2012 Zofran Odt 05/17/ Hx Tablets 8mg 20tabs 1 po q 4-6 Gwen 2010 - Dispers hrs prn Doris Patrick, 07/12/ for nausea CN 2010 Zofran 05/17/ Hx Tablets 8mg 60tabs 1 tablet Nancy 2010 - po q 6 hrs Fede, 12/20/ prn not to CNM 2011 exceed 32 mg/day Zithromax 10/01/ Hx Tablets 250mg 6tabs take 2 Varun 2008 - tablets Haroon, 11/06/ today, CNM 2008 then 1 tablet daily Precare 05/20/ Hx Chewtabs 30unit 1 PO qd Danny Kelley, 05/17/ MIván 2010 Natachew 05/08/ Hx Chewtabs 90unit 1 po qd Danny Velez 2008 Kirti s Allie, 05/20/ MPeterDPeter 2007 /Folic 04/18/ Hx Tablets 90tabs 1 PO qd Kimberlyn Acid 2007, 05/08/ ANP-C 2007 Ferrous Sulfate 04/18/ Hx Tablets 324mg 60tabs 1 po bid Kimberlyn 2007, 10/01/ ANP-C 2009 Macrobid 04/18/ Hx Capsules 100mg 14caps 1 PO bid Kimberlyn 2007, 04/25/ ANP-C 2007 Lexapro / Hx Tablets 20mg 30tabs 1 po qd Unknown 0000 - 2014 Loratadine / Hx Tablets 10mg prn Unknown 2016 Cymbalta /00/ Hx Unknown 2015 Cymbalta / Hx Caps DR 30mg by mouth Unknown - every day 2015 Lexapro / Hx Tablets 10mg 1 po qd Unknown 2016 Multi Vitamin / Hx 1 po qd Unknown 2016 Flaquita Allergy / Hx Unknown 2017 Nasal [place] / Hx Unknown 2017 Claritin / Hx Unknown 2017 Immunizations CPT Code Status Date Vaccine Lot # [id number] Given 06/28/2016 Tetnus, Diptheria Toxoids And Acellular Pertussis, [id number] PT > 7Yrs Old Vital Signs Date Vital Result Comment 03/27/2018 12:51pm BP Systolic 114 mmHg BP Diastolic 66 mmHg Height 61 inches 5'1" Weight 138.00 lb BMI (Body Mass Index) 26.1 kg/m2 Last Menstrual Period [id number] 5 Parity 3 11/03/2017 10:19am BP Systolic 118 mmHg BP Diastolic 66 mmHg Height 61 inches 5'1" Weight 138.00 lb BMI (Body Mass Index) 26.1 kg/m2 Last Menstrual Period [id number] 4 Parity 3 03/31/2017 3:38pm BP Systolic 112 mmHg BP Diastolic 68 mmHg Height 61 inches 5'1" Weight 147.00 lb BMI (Body Mass Index) 27.8 kg/m2 Last Menstrual Period [id number] 4 Parity 3 10/27/2016 10:57am BP Systolic 108 mmHg BP Diastolic 64 mmHg Height 61 inches 5'1" Weight 137.00 lb BMI (Body Mass Index) 25.9 kg/m2 Last Menstrual Period [id number] 4 Parity 3 10/17/2016 11:17am BP Systolic 110 mmHg BP Diastolic 60 mmHg Height 61 inches 5'1" Weight 135.00 lb BMI (Body Mass Index) 25.5 kg/m2 Last Menstrual Period [id number] 4 Parity 2 09/28/2016 9:17am BP Systolic 110 mmHg BP Diastolic 76 mmHg Body Temperature 98.4 F Height 61 inches 5'1" Weight 135.00 lb BMI (Body Mass Index) 25.5 kg/m2 Last Menstrual Period [id number] 4 Parity 2 09/16/2016 12:00am BP Systolic 126 mmHg BP Diastolic 74 mmHg Body Temperature 98.0 F Heart Rate 88 /min Respiratory Rate 16 /min Height 61 inches Weight 145.00 lb 09/02/2016 8:57am BP Systolic 104 mmHg BP Diastolic 58 mmHg Body Temperature 97.9 F Heart Rate 84 /min Respiratory Rate 18 /min Height 61.5 inches 5'1.50" Weight 154.00 lb BMI (Body Mass Index) 28.6 kg/m2 Last Menstrual Period 9589931 4 Parity 2 05/03/2016 1:30pm BP Systolic 102 mmHg BP Diastolic 64 mmHg Height 61.5 inches 5'1.50" Weight 127.00 lb BMI (Body Mass Index) 23.6 kg/m2 Last Menstrual Period [id number] 4 Parity 2 03/23/2016 11:23am BP Systolic 120 mmHg BP Diastolic 64 mmHg Height 61.5 inches 5'1.50" Weight 121.00 lb BMI (Body Mass Index) 22.5 kg/m2 Last Menstrual Period 7207349 4 Parity 2 10/13/2015 10:18am BP Systolic 116 mmHg BP Diastolic 72 mmHg Height 61.5 inches 5'1.50" Weight 112.00 lb BMI (Body Mass Index) 20.8 kg/m2 Last Menstrual Period 8194903 3 Parity 2 05/27/2015 10:12am BP Systolic 116 mmHg BP Diastolic 70 mmHg Heart Rate 79 /min Respiratory Rate 18 /min Height 61.5 inches Weight 122.00 lb BMI (Body Mass Index) 22.7 kg/m2 04/23/2015 2:53pm BP Systolic 112 mmHg BP Diastolic 74 mmHg Height 60.75 inches 5'0.75" Weight 122.00 lb BMI (Body Mass Index) 23.2 kg/m2 Last Menstrual Period [id number] 08/19/2013 10:36am BP Systolic 100 mmHg BP Diastolic 60 mmHg Height 60.75 inches 5'0.75" Weight 125.00 lb BMI (Body Mass Index) 23.8 kg/m2 Last Menstrual Period [id number] 3 Parity 2 08/07/2012 12:41pm BP Systolic 106 mmHg BP Diastolic 62 mmHg Height 60.75 inches 5'0.75" Weight 116.00 lb BMI (Body Mass Index) 22.1 kg/m2 Last Menstrual Period 0 bleeding daily 3 Parity 2 01/19/2012 10:56am BP Systolic 100 mmHg BP Diastolic 60 mmHg Height 60.75 inches 5'0.75" Weight 111.00 lb BMI (Body Mass Index) 21.1 kg/m2 3 Parity 2 12/22/2011 8:47am BP Systolic 104 mmHg BP Diastolic 62 mmHg Body Temperature 98.1 F Height 60.75 inches 5'0.75" Weight 117.00 lb BMI (Body Mass Index) 22.3 kg/m2 05/17/2011 1:30pm BP Systolic 100 mmHg BP Diastolic 52 mmHg Height 60.75 inches 5'0.75" Weight 105.00 lb BMI (Body Mass Index) 20.0 kg/m2 Last Menstrual Period [id number] 3 Parity 1 12/15/2008 11:08am BP Systolic 110 mmHg BP Diastolic 58 mmHg Body Temperature 98.4 F Height 60.5 inches 5'0.50" Weight 121.00 lb BMI (Body Mass Index) 23.2 kg/m2 Last Menstrual Period 0 1 Parity 1 04/16/2008 1:32pm BP Systolic 106 mmHg BP Diastolic 58 mmHg Height 60.5 inches 5'0.50" Weight 105.00 lb BMI (Body Mass Index) 20.2 kg/m2 Last Menstrual Period [id number] Results Test Date Facility Test Result H/L Range Note Laboratory test 08/31/2018 [facility] Genital For SEE RESULT [address] [place] [address] GRP B Strep BELOW [phone] Only Laboratory test 07/11/2018 [facility] Glucose 1 HR 109 mg/dL N 70-160 [address] [place] [address] Post Prandial [phone] CBC With No Diff 07/11/2018 [facility] White Blood 16.7 10^3/uL High 3.5-10.8 [place] [address] Count [phone] Red Blood Count 3.36 10^6/uL Low 4.00-5.40 Hemoglobin 11.0 g/dL Low 12.0-16.0 Hematocrit 32 % Low 35-47 Mean Corpuscular Volume 97 fL N 80-97 Mean Corpuscular Hemoglobin 33 pg High 27-31 Mean Corpuscular HGB Conc 34 g/dL N 31-36 Red Cell Distribution Width 13 % N 10.5-15 Platelet Count 463 10^3/uL High 150-450 Mean Platelet Volume 8.7 fL N 7.4-10.4 Sequential Integreated SCRN 2 NV 04/24/2018 [facility] Interpretation SEE BELOW 3 Risk For Ontd 1:3900 Age Risk Down Syndrome 1:700 [place] Down Syndrome Risk <1:5000 <1:270 [place] Trisomy 18 Risk <1:5000 <1:100 Calculated Gestational Age 16.4 4 Afp,Serum 49.2 ng/mL Afp Mom 1.35 5 HCG,Serum 21.2 IU/mL HCG Mom 0.60 Estriol,Free 0.77 ng/mL Estriol Mom 0.84 Inhibin A,Dimeric 222 pg/mL Inhibin A Mom 1.26 Batsheva-A 1012.9 ng/mL 6 Batsheva-A Mom 0.96 NT Mom 1.70 7 Referring Physician Name NOT GIVEN Referring Physician Phone NOT GIVEN Referring Physician Npi NOT GIVEN Specimen # From Part 1 NOT GIVEN Date Of 1990 Collection Date 04/24/2018 Maternal Weight 138 lbs 8 Est'd Date Of Delivery 10/05/2018 Nuchal Translucency 2.4 mm Gilman Rump Length 62 mm Ultrasound Date 03/27/2018 Nasal Bone NOT GIVEN Mother's Ethnic Origin OTHER Insulin Depend Diabetic N Repeat Specimen NO Number Of Fetuses 1 HX Of Neural Tube Defects NO Cigarette Smoker NOT GIVEN Twin B Nasal Bone NG 9 GC/Chlamydia Dna 04/24/2018 [facility] Chlamydia [place] [address] trachomatis Rna [phone] Neisseria gonorrhoeae (GC) Rna Negative Negative TSH & T4,Free 04/24/2018 [facility] TSH 0.83 mIU/L 0.40-4.50 10 T4,Free 0.9 ng/dL 0.8-1.8 Urine Drug 04/24/2018 [facility] Urine Amphetamine Negative ng/ mL 11 Comp 20 [place] [address] [phone] Urine Barbiturates Negative ng/mL 12 Urine Benzodiazepines Negative ng/mL 13 Urine Cocaine Negative ng/mL 14 Urine Phencyclidine Negative ng/mL Cutoff: 25 Urine Tetrahydrocannabinol Negative ng/mL Cutoff: 50 15 Creatinine, Urine 59.4 mg/dL Specific [place] 1.008 pH 7.4 Oxidants Negative 16 Adulterants Comment Normal Codeine, Ur Not Detected ng/mL Cutoff: 25 17 Assuxjk-4-tglt-glucuronide, Ur Not Detected ng/mL 18 Morphine, Ur Not Detected ng/mL Cutoff: 25 19 Uuzgqljq-4-qhfw-glucuronide, U Not Detected ng/mL 20 6-monoacetylmorphine, Ur Not Detected ng/mL Cutoff: 25 21 Hydrocodone, Ur Not Detected ng/mL Cutoff: 25 22 Norhydrocodone, Ur Not Detected ng/mL Cutoff: 25 23 Dihydrocodeine, Ur Not Detected ng/mL Cutoff: 25 24 Hydromorphone, Ur Not Detected ng/mL Cutoff: 25 25 Jksyujenkmamr1lmpohfnzmnikyot Not Detected ng/mL 26 Oxycodone, Ur Not Detected ng/mL Cutoff: 25 27 Noroxycodone, Ur Not Detected ng/mL Cutoff: 25 28 Oxymorphone, Ur Not Detected ng/mL Cutoff: 25 29 Skzmohfujzp-6-kmjv-glucuronide Not Detected ng/mL 30 Noroxymorphone, Ur Not Detected ng/mL Cutoff: 25 31 Fentanyl, Ur Not Detected ng/mL Cutoff: 2 32 Norfentanyl, Ur Not Detected ng/mL Cutoff: 2 33 Meperidine, Ur Not Detected ng/mL Cutoff: 25 34 Normeperidine, Ur Not Detected ng/mL Cutoff: 25 35 Naloxone, Ur Not Detected ng/mL Cutoff: 25 36 Bzxkbqlp-9-iulm-glucuronide, U Not Detected ng/mL 37 Methadone, Ur Not Detected ng/mL Cutoff: 25 38 Eddp, Ur Not Detected ng/mL Cutoff: 25 39 Propoxyphene, Ur Not Detected ng/mL Cutoff: 25 40 Norpropoxyphene, Ur Not Detected ng/mL Cutoff: 25 41 Tramadol, Ur Not Detected ng/mL Cutoff: 25 42 O-desmethyltramadol, Ur Not Detected ng/mL Cutoff: 25 43 Tapentadol, Ur Not Detected ng/mL Cutoff: 25 44 N-desmethyltapentadol, Ur Not Detected ng/mL Cutoff: 50 45 Mrtzejoiyw-abhm-famjqhrkpzv, U Not Detected ng/mL 46 Buprenorphine, Ur Not Detected ng/mL Cutoff: 5 47 Norbuprenorphine, Ur Not Detected ng/mL Cutoff: 5 48 Norbuprenorphine glucuronide Not Detected ng/mL Cutoff: 20 49 Opioid Interpretation See Comment 50 Spinal Muscular 03/27/2018 [facility] Result Summary See Comment 51 [place] [address] SCRN D/D [phone] Result See Comment 52 Interpretation See Comment 53 Additional Information See Comment 54 Specimen WB Whole Blood Released By See Comment 55 Parvovirus B19 03/27/2018 [facility] Parvovirus Negative Negative [place] [address] (B19) IgG [phone] Antibody Parvovirus (B19) IgM Antibody Negative Negative Parvovirus Interpretation See Comment 56 Lead 03/27/2018 [facility] Lead,Venous, B < 1.0 g/dL 0.0- 4.9 57 [place] [address] [phone] Submitting Laboratory Phone [phone] 58 HIV 1/2 AB 03/27/2018 [facility] HIV 1 2 Nonreactive Nonreactive [address] [place] [address] Antibody [phone] Laboratory 03/27/2018 [facility] TSH (Thyroid 1.56 mcIU/mL N 0.34-5.60 60 [place] [address] Stimulating [phone] Horm) Free T4 0.60 ng/dL Low 0.61-1.12 61 Rubella Screen Immune Immune 62 Hemoglobin A1c 4.9 % N 4.0-5.6 63 Syphillis Igg W/Reflex RPR Nonreactive Nonreactive 64 Hepatitis B Surface Antigen Nonreactive Nonreactive 65 CBC With No 03/27/2018 [facility] White Blood 13.5 10^3/uL High 3.5-10.8 [place] [address] Count [phone] Red Blood Count 3.87 10^6/uL Low 4.00-5.40 Hemoglobin 12.4 g/dL N 12.0-16.0 Hematocrit 36 % N 35-47 Mean Corpuscular Volume 94 fL N 80-97 Mean Corpuscular Hemoglobin 32 pg High 27-31 Mean Corpuscular HGB Conc 34 g/dL N 31-36 Red Cell Distribution Width 13 % N 10.5-15 Platelet Count 383 10^3/uL N 150-450 Mean Platelet Volume 8.4 um3 N 7.4-10.4 Sequential Integrated SCRN 1 NV 03/27/2018 [facility] Interpretation SEE BELOW 66 Age Risk Down Syndrome 1:520 [place] Down Syndrome Risk IN PROCESS <1:50 [place] Trisomy 18 Risk IN PROCESS <1:100 Calculated Gestational Age 12.4 67 Batsheva-A 1012.9 ng/mL 68 Batsheva-A Mom 0.96 HCG,Serum 32.7 IU/mL HCG Mom 0.33 NT Mom 1.70 69 Referring Physician Name VARUN RACHEL 70 Referring Physician Phone [phone] Referring Physician Npi [id number] Date Of 1990 73 Collection Date 03/27/2018 74 Maternal Weight 138 lbs 75 Est'd Date Of Delivery 10/05/2018 76 GABRIEL Determined By US 77 Mother's Ethnic Origin OTHER 78 Number Of Fetuses 1 79 Insulin Depend Diabetic N 80 Repeat Specimen NO 81 HX Of Neural Tube Defects NO 82 Prev Down Synd NO 83 Donor Egg NO 84 Donor Age:Egg Retrieval NOT GIVEN 85 Cigarette Smoker NOT GIVEN 86 Ultrasound Date 03/27/2018 87 Expressive Therapist's Name SILVIA 88 NTQR Expressive Therapist Id# [id number] NTQR Location Id# [id number] NTQR Reading Phys Id# [id number] FMF Expressive Therapist Id# NOT GIVEN 92 Gilman Rump Length 62 mm 93 Nuchal Translucency 2.4 mm 94 Nasal Bone NOT GIVEN 95 If Twins NOT GIVEN 96 Twin B CRL NG mm 97 Twin B NT NOT GIVEN mm 98 Twin B Nasal Bone NG 99 Type And Screen 03/27/2018 [facility] Patient [place] [address] [phone] Antibody Screen NEGATIVE Urine Culture And 03/27/2018 [facility] Urine Culture SEE RESULT [address] [place] [address] BELOW [phone] Laboratory test 11/03/2017 [facility] Cytology SEE RESULT [address] [place] [address] BELOW [phone] Laboratory test 03/31/2017 [facility] Surgical SEE RESULT [address] [place] [address] Pathology BELOW [phone] Laboratory Studies 09/10/2016 N2N/CCD Import Absolute 0.1 10^3/ul 0-0.2 Basophils (auto) Absolute Eosinophils (auto) 0.2 10^3/ul 0-0.6 [...] 16.7 10^3/ul High 3.5-10.8 Laboratory test 09/01/2016 [facility] Rupture of Negative N [address] [place] [address] Membranes [phone] Laboratory test 08/11/2016 [facility] Genital For SEE RESULT [address] [place] [address] GRP B Strep BELOW [phone] Only Laboratory test 06/14/2016 [facility] Glucose 1 HR 98 mg/dL N 70-1 [address] [place] [address] Post Prandial 60 [phone] CBC With No 06/14/2016 [facility] White Blood 14.8 10^3/uL High 3.5- [place] [address] Count 10.8 [phone] Red Blood Count 3.20 10^6/uL Low 4.0-5.4 Hemoglobin 10.3 g/dL Low 12.0-16.0 Hematocrit 31 % Low 35-47 Mean Corpuscular Volume 98 fL High 80-97 Mean Corpuscular Hemoglobin 32 pg High 27-31 Mean Corpuscular HGB Conc 33 g/dL N 31-36 Red Cell Distribution Width 13 % N 10.5-15 Platelet Count 360 10^3/uL N 150-450 Mean Platelet Volume 9 um3 N 7.4-10.4 GC/Chlamydia Dna 04/21/2016 [facility] Chlamydia [place] [address] trachomatis Rna [phone] Neisseria gonorrhoeae (GC) Rna Negative N Negative Qnatal(TM) Advanced 04/15/2016 [facility] Number Of Fetuses? 1 Advanced Maternal Age? NO Abnormal [place]? NO Abnormal US? YES Personal/Fam History? NO Interpretation SEE BELOW 106 Trisomy 21 (T21) Negative Trisomy 18 (T18) Negative Trisomy 13 (T13) Negative Y Chromosome Not detected Y CHR. Interpretation SEE BELOW 107 Sex Chromosome No aneuploidy Sex Chromosome Interp SEE BELOW 108 Microdeletion Opted Out Abnormal Microdeletion Interp SEE BELOW 109 Gestational Age (In Weeks) 18 Gestational Age (In Days) 1 Fraction 14.91% Laboratory Comments SEE BELOW 110 Limitations SEE BELOW 111 Specifications SEE BELOW 112 Methodology SEE BELOW 113 Qnatal(TM) 04/11/2016 [facility] Interpretation SEE NOTE 114 Advanced PNL No 03/23/2016 [facility] Rubella Screen Immune IU/ mL N Immune 115 [place] [address] [phone] Hemoglobin A1c 4.6 % N Less than 6.0 116 Hepatitis B Surface Ag Nonreactive N Nonreactive 117 Syphillis Igg W/Reflex RPR Nonreactive N Nonreactive 118 CBC With No 03/23/2016 [facility] White Blood 14.1 10^3/uL High 3.5-10.8 [place] [address] Count [phone] Red Blood Count 3.55 10^6/uL Low 4.0-5.4 Hemoglobin 11.5 g/dL Low 12.0-16.0 Hematocrit 36 % N 35-47 Mean Corpuscular Volume 101 fL High 80-97 Mean Corpuscular Hemoglobin 33 pg High 27-31 Mean Corpuscular HGB Conc 32 g/dL N 31-36 Red Cell Distribution Width 15 % N 10.5-15 Platelet Count 338 10^3/uL N 150-450 Mean Platelet Volume 9 um3 N 7.4-10.4 Type And Screen 03/23/2016 [facility] Patient [place] [address] [phone] Antibody Screen NEGATIVE N HIV 1/2 AB 03/23/2016 [facility] HIV 1 2 Nonreactive N Nonreactive [address] [place] [address] Antibody [phone] Lead 03/23/2016 [facility] Lead <1.0 g/dL N 0.0-4.9 [address] [place] [address] [phone] Laboratory test 03/23/2016 [facility] Cytology SEE RESULT [address] [place] [address] BELOW [phone] Urine Culture 03/23/2016 [facility] Urine SEE RESULT [address] [place] [address] Culture BELOW Sensitivities [phone] Thyroid 10/13/2015 [facility] Thyroid 1.0 mIU/L N 0.3-4.2 [address] [place] [address] Stim [place] [phone] Hormone Laboratory test 08/07/2012 [facility] Cytology RUN DATE: [address] [place] [address] 08/08/ <SEE [phone] NOTE> Laboratory test 12/26/2011 [facility] Thyroxine 2.25 ng/dL High 0.61-1.24 [address] [place] [address] Free [phone] T3 Total 2.90 NG/ML High 0.5-1.7 T3 Free 7.54 pg/mL High 2.39-6.79 TSH 0.09 MIU/ML Low 0.34-5.60 Surgical 12/10/2011 [facility] Surgical [address] [place] [address] Pathology <SEE NOTE> [phone] Laboratory 12/05/2011 [facility] Thyroxine 1.59 ng/dL High 0.6 test finding [place] [id number] Free 1-9 [phone] .24 T3 Total 2.93 NG/ML High 0.5-1.7 T3 Free 7.09 pg/mL High 2.39-6.79 TSH 0.11 MIU/ML Low 0.34-5.60 Culture 11/23/2011 [facility] M [address] [place] [address] <SEE NOTE> [phone] Laboratory 10/27/2011 [facility] Thyroxine 1.37 ng/dL High 0.6 [address] [place] [address] Free 1-4 [phone] .24 T3 Total 2.46 NG/ML High 0.5-1.7 T3 Free 5.63 pg/mL 2.39-6.79 TSH 0.13 MIU/ML Low 0.34-5.60 Laboratory test 09/20/2011 [facility] TSH 0.21 MIU/ML Low 0.34 -5.60 [address] [place], [place] [address]137 [phone] Thyroxine Free 1.75 ng/dL High 0.61-1.24 Glucose Tolerance 2HR Obgyn (SEE NOTE) mg/dL 130 CBC No Diff 09/20/2011 [facility] White Blood 15.4 CUMM High 4.8-10.8 [place] [address] Count [phone] Red Cell Count 3.74 CUMM Low 4.2-5.4 Hemoglobin 12.0 g/dL 12.0-16.0 Hematocrit 35 % 35-47 Mean Corpuscular Volume 93 um3 79-97 Mean Corpuscular Hemoglob 32 pg High 27-31 Mean Corpuscular HGB Cone 34 g/dL 32-36 Redcell Distribution WDTH 13 % 10.5-15 Platelet Count 313 CUMM 150-450 Mean Platelet Volume 9.8 um3 7.4-10.4 Glucose 2HR 09/20/2011 [facility] Fasting Glucose 83 mg/dL 70 -110 Tolerance (CMC) [place] [address] [phone] 1HR Glucose 95 mg/dL 131 2HR Glucose 101 mg/dL 132 GC/Chlamydia 07/12/2011 [facility] M [address] [place] [address] <SEE NOTE> [phone] Lyme Western 07/12/2011 [facility] Lyme Igg Negative [place] [address] Western [phone] Blot Lyme Igg Bands Detected No bands detecte <SEE NOTE> kDa () 134 Lyme Igm Western Blot Negative Negative Lyme Igm Bands Detected No bands detecte <SEE NOTE> kDa () 135 Lyme Disease Interpretation . () 136 Laboratory test 07/12/2011 [facility] TSH 0.09 MIU/ML Low 0.34 -5.60 [place] [address] [phone] Thyroxine Free 1.78 ng/dL High 0.61-1.24 Prental PNL 06/14/2011 [facility] Hepatitis B [place] [address] Surface Ag [phone] Rubella Screen IMMUNE Immune Syphilis Screen 06/14/2011 [facility] Syphilis [place] [address] [phone] RPR NON-REACTIVE Nonreactive RPR Titer TNP Pediatric/Maternal YES Vad 06/14/2011 [facility] Vad Final NONREACTIVE Nonreactive [address] [place] [address] [phone] Type & 06/14/2011 [facility] [place] [address] Blood Type [phone] Antibody Screen NEGATIVE CBC No Diff 06/14/2011 [facility] White Blood 12.1 CUMM High 4.8-10.8 [place] [address] Count [phone] Red Cell Count 4.06 CUMM Low 4.2-5.4 Hemoglobin 12.8 g/dL 12.0-16.0 Hematocrit 38 % 35-47 Mean Corpuscular Volume 94 um3 79-97 Mean Corpuscular Hemoglob 32 pg High 27-31 Mean Corpuscular HGB Cone 34 g/dL 32-36 Redcell Distribution WDTH 15 % 10.5-15 Platelet Count 335 CUMM 150-450 Mean Platelet Volume 9.8 um3 7.4-10.4 Laboratory test 06/14/2011 [facility] [facility] Thyroxine Free 1.64 High 0.61-1.24 [place] [address] ng/dL [phone] TSH 0.48 MIU/ML 0.34-5.60 Urine Culture & 05/17/2011 [facility] Urine Culture NG [address] [place] [address] Sensitivi [phone] Laboratory test 05/17/2011 [facility] Cytology --------- [address] [place] [address] ------- [phone] <SEE NOTE> Laboratory test 11/06/2008 [facility] Ristocetin 120 % 55- 200 [address] [place] [address] Cofactor (VWF) [phone] Laboratory test 10/31/2008 [facility] PTT (Aptt) 25.9 20.1-2 [address] [place] [address] 8.2 [phone] Protime 10/31/2008 [facility] Protime 11.0 10.9-1 [place] [address] 3.3 [phone] Inr 0.83 142 Laboratory test 10/15/2008 [facility] Genital For FINAL: [address] [place] [address] GRP B Strep NEGATIVE <SEE [phone] Only NOTE> Laboratory test 08/20/2008 [facility] PTT (Aptt) 25.2 20.1- [address] [place] [address] 28.2 [phone] Protime 08/20/2008 [facility] Protime 11.5 10.9- [place] [address] 13.3 [phone] Inr 0.90 145 GC/Chlamydia Dna 05/30/2008 [facility] GC By NEGATIVE Negative [address] [place] [address] Aptima [phone] CHL By Aptima NEGATIVE Negative 147 Urine Culture & 05/08/2008 [facility] Urine Culture NG [address] [place] [address] Sensitivi [phone] Laboratory test 04/16/2008 [facility] Cytology --------- [address] [place] [address] ------- [phone] <SEE NOTE> Gram Neg Spencer 04/16/2008 [facility] Ampicillin <=2 [place] [address] [phone] Amikacin <=2 S Ciprofloxacin <=0.25 S Cefazolin <=4 S Nitrofurantoin <=16 S on macrobid Gentamicin <=1 S Imipenem <=1 S Levofloxacin <=0.25 S Meropenem <=0.25 S Trimeth-Sulfa <=20 S Tigecylcine <=0.5 S Piperacillin/Tazobactam <=4 S Urine Culture 04/16/2008 [facility] Urine Culture [place] [address] Sensitivi COLI [phone] Laboratory test 04/16/2008 [facility] PTT (Aptt) 28.5 High 20.1 [address] [place] [address] -28. [phone] Protime 04/16/2008 [facility] Protime 12.6 10.9 [place] [address] -13. [phone] Inr 1.08 151 Manual Diff PN 04/16/2008 [facility] Polysegmented 69 % 38- 83 [place] [address] Neutrophil [phone] Band Neutrophil 2 % 0-8 Lymphocyte 21 % 5-47 Monocyte 1 % 0-13 Eosenophil 7 % High 0-6 Absolute Neutrophil Count 8.5 RBC Morphology NORMAL Vad 04/16/2008 [facility] Vad Final NONREACTIVE Nonreactive [address] [place] [address] [phone] TS 04/16/2008 [facility] [place] [address] Blood Type [phone] Antibody Screen NEGATIVE 1 04/16/2008 [facility] White Blood 12.0 CUMM High 4.8-10.8 [place] [address] Count [phone] Red Cell Count 3.29 CUMM Low 4.2-5.4 [...] Immune Hepatitis B Surface Antigen Negative Negative 153 Hemoglobinopathy 04/16/2008 [facility] Erythrocyte Count 3.33 Mill/uL Low 3.80 -5.10 Evaluation Hemoglobin 10.9 g/dL Low 11.7-15.5 Hematocrit 31.4 % Low 35.0-45.0 MCV 94.3 FL 80.0-100.0 MCH 32.7 pg 27.0-33.0 RDW 13.3 % 11.0-15.0 Hemoglobin A1 97.4 % >96.0 Hemoglobin F 0.1 % <2.0 Hemoglobin A2 2.5 % 1.8-3.5 Abnormal Hemoglobin 1 DNR Abnormal Hemoglobin 2 DNR Abnormal Hemoglobin 3 DNR Interpretation see note 154 1 SEE RESULT BELOW Name: CELY ESTEVEZ : [address]: Hunter Alexandre MD Acct: [id number] Unit: [id number] AGE: 28 Location: [facility] Re08/31/18 SEX: F Status: REG REF SPEC: [id number] BRENDEN: 08/31/18-[address] [facility] [address]: Hunter Alexandre MD REQ: [id number] RECD: 08/31/18 STATUS: COMP _ SOURCE: CER/VAG/RE SPDESC: ORDERED: Grp B Strp Scrn COMMENTS: [id number] QUERIES: Is Patient Penicillin Allergic? N Is patient penicillin allergic and/or sensitivities needed? N Provider Requisition # [id number] Procedure Result Reported Site Group B Strep Culture Screen Final 09/03/18- 1018 [facility] Group B Strep Screen Negative * [facility] - Main Lab . END OF REPORT DEPARTMENT OF PATHOLOGY, [address] [place] [address] Handy Garcia M.D. Director [facility] # [id number] 2 [id number] SCREEN NEGATIVE FOR OPEN NTD, DOWN SYNDROME AND TRISOMY 18. NT WAS USED IN THE RISK CALCULATIONS. 4 Gilman rump length (CRL) was used to calculate gestational age. GABRIEL, if provided, was not used for gestational age dating. 5 Reference Range: <2.50 IDD <1.90 TWINS <4.00 TWINS IDD <3.50 TRIPLETS <4.50 6 This test was performed using a kit that has not been cleared or approved by the FDA. The analytical performance characteristics of this test have been determined by [employer] [facility] [place]. This test should not be used for diagnosis without confirmation by other medically established means. 7 The Sequential Integrated Screen combines BATSHEVA-A and hCG with or without a nuchal translucency measurement in the first trimester with AFP, unconjugated estriol, intact hCG and Inhibin A in the second trimester. This provides a useful screening test for detection of open neural tube defects, Down syndrome and Trisomy 18. It should be noted that normal results can never guarantee the of a normal baby and that 2 to 3 percent of newborns have some type of physical or mental defect, many of which are undetectable through any known diagnostic technique. Interpretation reviewed by: Prince Styles, Ph.D., [facility]. 8 NOT PROVIDED, USE PART 1 MATERNAL [id number] 9 For additional information, please refer to http://[email or web address]/faq/FAQ94 (This link is provided for informational/educational purposes only.) This is a screening test, not a diagnostic test. This risk assessment is based on demographic data provided by the ordering physician. Please notify the laboratory promptly if any data are incorrect. It has been observed that patients who smoke cigarettes during may have a slightly increased risk of having a false positive BALBINA screen for Down Syndrome or trisomy 18. If you have questions concerning this report: For clinical consultation, call ; For technical questions, call ext [phone]; For recalculations, fax to [phone]. 10 REFERENCE RANGES BELOW ARE APPLICABLE TO FEMALES FIRST TRIMESTER - 0.26 - 2.66 mIU/L SECOND TRIMESTER - 0.55 - 2.73 mIU/L THIRD TRIMESTER - 0.43 - 2.91 mIU/L 11 REFERENCE VALUE Cutoff: 500 12 REFERENCE VALUE Cutoff: 200 13 REFERENCE VALUE Cutoff: 100 14 REFERENCE VALUE Cutoff: 150 15 ADDITIONAL INFORMATION This report is intended for use in clinical monitoring or management of patients. It is not intended for use in employment-related testing. 16 REFERENCE VALUE Cutoff: 200 mg/L 17 Tylenol 3 18 Metabolite of codeine REFERENCE VALUE Cutoff: 100 19 Nay Flores, Contin; Also a minor metabolite (10%) of codeine and can be seen in low concentrations (<2,000 ng/mL) with poppy seed ingestion. 20 Metabolite of morphine REFERENCE VALUE Cutoff: 100 21 Metabolite of heroin 22 Lortab, [place], Vicodin; Also a very minor metabolite of codeine and impurity (<1%) of oxycodone. 23 Metabolite of hydrocodone 24 Metabolite of hydrocodone 25 Dilaudid, Exalgo; Also a metabolite of hydrocodone and a minor (<5%) metabolite of morphine. 26 Metabolite of hydromorphone REFERENCE VALUE Cutoff: 100 27 Endocet, Percocet, Oxycontin 28 Metabolite of oxycodone 29 Numorphan, Opana; Also a metabolite of oxycodone. 30 Metabolite of oxymorphone REFERENCE VALUE Cutoff: 100 31 Metabolite of oxymorphone 32 Actiq, Duragesic, Fentora 33 Metabolite of fentanyl 34 Demerol 35 Metabolite of meperidine 36 Narcan 37 Metabolite of naloxone REFERENCE VALUE Cutoff: 100 38 Dolophine 39 Metabolite of methadone 40 Darvon, Darvocet 41 Metabolite of propoxyphene 42 Tradol, Ultram, Ultracet 43 Metabolite of tramadol 44 Nucynta 45 Metabolite of tapentadol 46 Metabolite of tapentadol REFERENCE VALUE Cutoff: 100 47 Buprenex, Suboxone 48 Metabolite of buprenorphine 49 Metabolite of buprenorphine 50 No opioids were detected. The absence of expected drug(s) and/or drug metabolite(s) may indicate non-compliance, altered pharmacokinetics, inappropriate timing of specimen collection relative to drug administration, diluted/adulterated urine, or limitations of testing. ADDITIONAL INFORMATION This test was developed and its performance characteristics determined by [facility] in a manner consistent with CLIA requirements. This test has not been cleared or approved by the U.S. Food and Drug Administration. Test Performed by: 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 One copy of SMN2 was detected. 53 This result indicates a reduced carrier risk for Spinal Muscular Atrophy (SMA). Although SMN1 gene deletions account for 95% of SMA-causing mutations, carrier status cannot be completely excluded because this test cannot differentiate one copy of SMN1 exon 7 on each chromosome (1/1) from two copies of SMN1 on one chromosome and none on the other chromosome (2/0). Individuals that carry zero copies of the SMN1 gene on one of their chromosomes may be at risk to have an affected child, if their partner is also an SMA carrier. Other alterations within the SMN1 gene, such as point mutations, are also not detected by this test. An individual's residual risk for SMA carrier status varies by ancestry and SMN1 copies. The table below lists the chance of being a 2/0 or 3/0 carrier, based on ancestry and the number of copies of SMN1 detected (1). Ancestry Prior Risk 2 Copies (2/0) 3 Copies (3/0) ----- 35 1/632 08/3499 Ashkenazi Yazdanism 41 1/350 08/3999 53 1/628 08/4999 166 1/121 08/2999 1/117 08/1060 168491 These calculations are based on the population carrier frequencies noted in the chart and assume no family history of SMA. We are unable to provide a revised risk assessment for ancestries other than those listed above as there is insufficient information available about the SMA carrier frequency in other populations. A genetic consultation may be of benefit. ADDITIONAL INFORMATION Laboratory developed test (LDT) for SMN1 exon 7 and SMN2 exon 7 copy number by droplet digital PCR. Mutation nomenclature is based on the following GenBank Accession number(s) (build GRCh37 (hg19)): [id number]. See [email or web address] (Test ID SMNCS) for additional information about this test. CAUTIONS: CLINICAL CORRELATIONS Test results should be interpreted in context of clinical findings, family history, and other laboratory data. Misinterpretation of results may occur if the information provided is inaccurate or incomplete. If testing was performed because of a family history of Spinal Muscular Atrophy, it is often useful to first test an affected family member. TECHNICAL LIMITATIONS Point mutations are undetectable by this assay. Nor can the assay discriminate between two copies of SMN1 on the same chromosome versus two copies on separate chromosomes. Bone marrow transplants from allogenic donors will interfere with testing. Call [facility] for instructions for testing patients who have received a bone marrow transplant. TEST CLASSIFICATION This test was developed and its performance characteristics determined by [facility] in a manner consistent with CLIA requirements. This test has not been cleared or approved by the U.S. Food and Drug Administration. 54 REFERENCES 1. J Med Susan. 2009; 46: 641-644 (PMID: 36833392) 55 RESULT: Devaughn Brady, Ph.D. [phone] Test Performed by: [facility] - [address] [address] 56 No antibody to Parvovirus B19 detected. Acute infection cannot be ruled out as antibody levels may be below the limit of detection. If clinically indicated, a second serum should be submitted in 14-21 days. ADDITIONAL INFORMATION This test has been modified from the retail reset merchandiser's instructions. Its performance characteristics were determined by [facility] in a manner consistent with CLIA requirements. This test has not been cleared or approved by the U.S. Food and Drug Administration. Test Performed by: [facility] - [address] [address] 57 ADDITIONAL INFORMATION Testing performed by Inductively Coupled Plasma-Mass Spectrometry (ICP-MS). This test was developed and its performance characteristics determined by [facility] in a manner consistent with CLIA requirements. This test has not been cleared or approved by the U.S. Food and Drug Administration. 58 Test Performed by: [facility] - [address] [address] 59 It is recognized that currently available assays [...] 95% confidence interval of 99.78 to 99.96%. 60 [id number] 61 [id number] 62 [id number] 63 Therapeutic target for the treatment of diabetes mellitus patients is <7% HBA1C, and in selective patients <6.0%. Please refer to [place] Diabetes Association diabetic care guidelines for further information. 64 Warning: A positive result is not useful for establishing a diagnosis of syphilis. In most situations, such a result may reflect a prior treated infection; a negative result can exclude a diagnosis of syphilis except for incubating or early primary disease. 65 [id number] 66 This patient's risk does not exceed the first trimester cut-off for Down syndrome or trisomy 18. The integrated screen calculation is awaiting the second trimester sample. NT WAS USED IN THE RISK CALCULATIONS. Thank you for submitting this patient's Part 1 specimen. These first trimester values will be incorporated with the second trimester values as part of the integrated testing process. Please submit the Part 2 specimen between 04/14/2018-06/08/2018 (15.0 and 22.9 weeks gestation) with 04/14/2018-04/27/2018 (15.0 - 16.9 weeks gestation) being optimal. When submitting Part 2, please include the following Specimen # from Part 1: [id number] 67 Gilman rump length (CRL) was used to calculate gestational age. GABRIEL, if provided, was not used for gestational age dating. 68 This test was performed using a kit that has not been cleared or approved by the FDA. The analytical performance characteristics of this test have been determined by [facility]. This test should not be used for diagnosis without confirmation by other medically established means. 69 Interpretation reviewed by: Brooklynn Engel, Ph.D., [facility]. For additional information, please refer to [email or web address] (This link is being provided for informational/educational purposes only.) This is a screening test, not a diagnostic test. This risk assessment is based on demographic data provided by the ordering physician. Please notify the laboratory promptly if any data are incorrect. It has been observed that patients who smoke cigarettes during may have a slightly increased risk of having a false positive BALBINA screen for Down Syndrome or trisomy 18 If you have questions concerning this report: For clinical consultation, call ; For technical questions, call ext [phone]; For recalculations, fax to [phone]. 70 For additional information, please refer to [email or web address] (This link is being provided for informational/educational purposes only.) This is a screening test, not a diagnostic test. This risk assessment is based on demographic data provided by the ordering physician. Please notify the laboratory promptly if any data are incorrect. It has been observed that patients who smoke cigarettes during may have a slightly increased risk of having a false positive BALBINA screen for Down Syndrome or trisomy 18 If you have questions concerning this report: For clinical consultation, call ; For technical questions, call ext [phone]; For recalculations, fax to [phone]. 71 For additional information, please refer to [email or web address] (This link is being provided for informational/educational purposes only.) This is a screening test, not a diagnostic test. This risk assessment is based on demographic data provided by the ordering physician. Please notify the laboratory promptly if any data are incorrect. It has been observed that patients who smoke cigarettes during may have a slightly increased risk of having a false positive BALBINA screen for Down Syndrome or trisomy 18 If you have questions concerning this report: For clinical consultation, call ; For technical questions, call ext [phone]; For recalculations, fax to [phone]. 72 For additional information, please refer to [email or web address] (This link is being provided for informational/educational purposes only.) This is a screening test, not a diagnostic test. This risk assessment is based on demographic data provided by the ordering physician. Please notify the laboratory promptly if any data are incorrect. It has been observed that patients who smoke cigarettes during may have a slightly increased risk of having a false positive BALBINA screen for Down Syndrome or trisomy 18 If you have questions concerning this report: For clinical consultation, call ; For technical questions, call ext [phone]; For recalculations, fax to [phone]. 73 For additional information, please refer to [email or web address] (This link is being provided for informational/educational purposes only.) This is a screening test, not a diagnostic test. This risk assessment is based on demographic data provided by the ordering physician. Please notify the laboratory promptly if any data are incorrect. It has been observed that patients who smoke cigarettes during may have a slightly increased risk of having a false positive BALBINA screen for Down Syndrome or trisomy 18 If you have questions concerning this report: For clinical consultation, call ; For technical questions, call ext [phone]; For recalculations, fax to [phone]. 74 For additional information, please refer to [email or web address] (This link is being provided for informational/educational purposes only.) This is a screening test, not a diagnostic test. This risk assessment is based on demographic data provided by the ordering physician. Please notify the laboratory promptly if any data are incorrect. It has been observed that patients who smoke cigarettes during may have a slightly increased risk of having a false positive BALBINA screen for Down Syndrome or trisomy 18 If you have questions concerning this report: For clinical consultation, call ; For technical questions, call ext [phone]; For recalculations, fax to [phone]. 75 For additional information, please refer to [email or web address] (This link is being provided for informational/educational purposes only.) This is a screening test, not a diagnostic test. This risk assessment is based on demographic data provided by the ordering physician. Please notify the laboratory promptly if any data are incorrect. It has been observed that patients who smoke cigarettes during may have a slightly increased risk of having a false positive BALBINA screen for Down Syndrome or trisomy 18 If you have questions concerning this report: For clinical consultation, call ; For technical questions, call ext [phone]; For recalculations, fax to [phone]. 76 For additional information, please refer to [email or web address] (This link is being provided for informational/educational purposes only.) This is a screening test, not a diagnostic test. This risk assessment is based on demographic data provided by the ordering physician. Please notify the laboratory promptly if any data are incorrect. It has been observed that patients who smoke cigarettes during may have a slightly increased risk of having a false positive BALBINA screen for Down Syndrome or trisomy 18 If you have questions concerning this report: For clinical consultation, call ; For technical questions, call ext [phone]; For recalculations, fax to [phone]. 77 For additional information, please refer to [email or web address] (This link is being provided for informational/educational purposes only.) This is a screening test, not a diagnostic test. This risk assessment is based on demographic data provided by the ordering physician. Please notify the laboratory promptly if any data are incorrect. It has been observed that patients who smoke cigarettes during may have a slightly increased risk of having a false positive BALBINA screen for Down Syndrome or trisomy 18 If you have questions concerning this report: For clinical consultation, call ; For technical questions, call ext [phone]; For recalculations, fax to [phone]. 78 For additional information, please refer to [email or web address] (This link is being provided for informational/educational purposes only.) This is a screening test, not a diagnostic test. This risk assessment is based on demographic data provided by the ordering physician. Please notify the laboratory promptly if any data are incorrect. It has been observed that patients who smoke cigarettes during may have a slightly increased risk of having a false positive BALBINA screen for Down Syndrome or trisomy 18 If you have questions concerning this report: For clinical consultation, call ; For technical questions, call ext [phone]; For recalculations, fax to [phone]. 79 For additional information, please refer to [email or web address] (This link is being provided for informational/educational purposes only.) This is a screening test, not a diagnostic test. This risk assessment is based on demographic data provided by the ordering physician. Please notify the laboratory promptly if any data are incorrect. It has been observed that patients who smoke cigarettes during may have a slightly increased risk of having a false positive BALBINA screen for Down Syndrome or trisomy 18 If you have questions concerning this report: For clinical consultation, call ; For technical questions, call ext [phone]; For recalculations, fax to [phone]. 80 For additional information, please refer to [email or web address] (This link is being provided for informational/educational purposes only.) This is a screening test, not a diagnostic test. This risk assessment is based on demographic data provided by the ordering physician. Please notify the laboratory promptly if any data are incorrect. It has been observed that patients who smoke cigarettes during may have a slightly increased risk of having a false positive BALBINA screen for Down Syndrome or trisomy 18 If you have questions concerning this report: For clinical consultation, call ; For technical questions, call ext [phone]; For recalculations, fax to [phone]. 81 For additional information, please refer to [email or web address] (This link is being provided for informational/educational purposes only.) This is a screening test, not a diagnostic test. This risk assessment is based on demographic data provided by the ordering physician. Please notify the laboratory promptly if any data are incorrect. It has been observed that patients who smoke cigarettes during may have a slightly increased risk of having a false positive BALBINA screen for Down Syndrome or trisomy 18 If you have questions concerning this report: For clinical consultation, call ; For technical questions, call ext [phone]; For recalculations, fax to [phone]. 82 For additional information, please refer to [email or web address] (This link is being provided for informational/educational purposes only.) This is a screening test, not a diagnostic test. This risk assessment is based on demographic data provided by the ordering physician. Please notify the laboratory promptly if any data are incorrect. It has been observed that patients who smoke cigarettes during may have a slightly increased risk of having a false positive BALBINA screen for Down Syndrome or trisomy 18 If you have questions concerning this report: For clinical consultation, call ; For technical questions, call ext [phone]; For recalculations, fax to [phone]. 83 For additional information, please refer to [email or web address]://[email or web address]itence/faq/[email or web address] (This link is being provided for informational/educational purposes only.) This is a screening test, not a diagnostic test. This risk assessment is based on demographic data provided by the ordering physician. Please notify the laboratory promptly if any data are incorrect. It has been observed that patients who smoke cigarettes during may have a slightly increased risk of having a false positive BALBINA screen for Down Syndrome or trisomy 18 If you have questions concerning this report: For clinical consultation, call ; For technical questions, call ext [phone]; For recalculations, fax to [phone]. 84 For additional information, please refer to [email or web address]://[employer]itence/faq/[email or web address] (This link is being provided for informational/educational purposes only.) This is a screening test, not a diagnostic test. This risk assessment is based on demographic data provided by the ordering physician. Please notify the laboratory promptly if any data are incorrect. It has been observed that patients who smoke cigarettes during may have a slightly increased risk of having a false positive BALBINA screen for Down Syndrome or trisomy 18 If you have questions concerning this report: For clinical consultation, call ; For technical questions, call ext [phone]; For recalculations, fax to [phone]. 85 For additional information, please refer to [email or web address]://[employer]/faq/[email or web address] (This link is being provided for informational/educational purposes only.) This is a screening test, not a diagnostic test. This risk assessment is based on demographic data provided by the ordering physician. Please notify the laboratory promptly if any data are incorrect. It has been observed that patients who smoke cigarettes during may have a slightly increased risk of having a false positive BALBINA screen for Down Syndrome or trisomy 18 If you have questions concerning this report: For clinical consultation, call ; For technical questions, call ext [phone]; For recalculations, fax to [phone]. 86 For additional information, please refer to http://[employer]/faq/[email or web address] (This link is being provided for informational/educational purposes only.) This is a screening test, not a diagnostic test. This risk assessment is based on demographic data provided by the ordering physician. Please notify the laboratory promptly if any data are incorrect. It has been observed that patients who smoke cigarettes during may have a slightly increased risk of having a false positive BALBINA screen for Down Syndrome or trisomy 18 If you have questions concerning this report: For clinical consultation, call ; For technical questions, call ext [phone]; For recalculations, fax to [phone]. 87 For additional information, please refer to http://education.[email or web address].Com[employer]itence/faq/FAQ89 (This link is being provided for informational/educational purposes only.) This is a screening test, not a diagnostic test. This risk assessment is based on demographic data provided by the ordering physician. Please notify the laboratory promptly if any data are incorrect. It has been observed that patients who smoke cigarettes during may have a slightly increased risk of having a false positive BALBINA screen for Down Syndrome or trisomy 18 If you have questions concerning this report: For clinical consultation, call ; For technical questions, call ext [phone]; For recalculations, fax to [phone]. 88 For additional information, please refer to http://[employer]ence/faq/[email or web address] (This link is being provided for informational/educational purposes only.) This is a screening test, not a diagnostic test. This risk assessment is based on demographic data provided by the ordering physician. Please notify the laboratory promptly if any data are incorrect. It has been observed that patients who smoke cigarettes during may have a slightly increased risk of having a false positive BALBINA screen for Down Syndrome or trisomy 18 If you have questions concerning this report: For clinical consultation, call ; For technical questions, call ext [phone]; For recalculations, fax to [phone]. 89 For additional information, please refer to http://education.[email or web address]ence/faq/FAQ89 (This link is being provided for informational/educational purposes only.) This is a screening test, not a diagnostic test. This risk assessment is based on demographic data provided by the ordering physician. Please notify the laboratory promptly if any data are incorrect. It has been observed that patients who smoke cigarettes during may have a slightly increased risk of having a false positive BALBINA screen for Down Syndrome or trisomy 18 If you have questions concerning this report: For clinical consultation, call ; For technical questions, call ext [phone]; For recalculations, fax to [phone]. 90 For additional information, please refer to http://[employer]I/faq/[email or web address] (This link is being provided for informational/educational purposes only.) This is a screening test, not a diagnostic test. This risk assessment is based on demographic data provided by the ordering physician. Please notify the laboratory promptly if any data are incorrect. It has been observed that patients who smoke cigarettes during may have a slightly increased risk of having a false positive BALBINA screen for Down Syndrome or trisomy 18 If you have questions concerning this report: For clinical consultation, call ; For technical questions, call ext [phone]; For recalculations, fax to [phone]. 91 For additional information, please refer to [email or web address]://[email or web address]/faq/[email or web address] (This link is being provided for informational/educational purposes only.) This is a screening test, not a diagnostic test. This risk assessment is based on demographic data provided by the ordering physician. Please notify the laboratory promptly if any data are incorrect. It has been observed that patients who smoke cigarettes during may have a slightly increased risk of having a false positive BALBINA screen for Down Syndrome or trisomy 18 If you have questions concerning this report: For clinical consultation, call ; For technical questions, call ext [phone]; For recalculations, fax to [phone]. 92 For additional information, please refer to http://[employer]ence/faq/[email or web address] (This link is being provided for informational/educational purposes only.) This is a screening test, not a diagnostic test. This risk assessment is based on demographic data provided by the ordering physician. Please notify the laboratory promptly if any data are incorrect. It has been observed that patients who smoke cigarettes during may have a slightly increased risk of having a false positive BALBINA screen for Down Syndrome or trisomy 18 If you have questions concerning this report: For clinical consultation, call ; For technical questions, call ext [phone]; For recalculations, fax to [phone]. 93 For additional information, please refer to [email or web address]/[email or web address] (This link is being provided for informational/educational purposes only.) This is a screening test, not a diagnostic test. This risk assessment is based on demographic data provided by the ordering physician. Please notify the laboratory promptly if any data are incorrect. It has been observed that patients who smoke cigarettes during may have a slightly increased risk of having a false positive BALBINA screen for Down Syndrome or trisomy 18 If you have questions concerning this report: For clinical consultation, call ; For technical questions, call ext [phone]; For recalculations, fax to [phone]. 94 For additional information, please refer to http://[employer].PPI/faq/[email or web address] (This link is being provided for informational/educational purposes only.) This is a screening test, not a diagnostic test. This risk assessment is based on demographic data provided by the ordering physician. Please notify the laboratory promptly if any data are incorrect. It has been observed that patients who smoke cigarettes during may have a slightly increased risk of having a false positive BALBINA screen for Down Syndrome or trisomy 18 If you have questions concerning this report: For clinical consultation, call ; For technical questions, call ext [phone]; For recalculations, fax to [phone]. 95 For additional information, please refer to http://[employer]/faq/[email or web address] (This link is being provided for informational/educational purposes only.) This is a screening test, not a diagnostic test. This risk assessment is based on demographic data provided by the ordering physician. Please notify the laboratory promptly if any data are incorrect. It has been observed that patients who smoke cigarettes during may have a slightly increased risk of having a false positive BALBINA screen for Down Syndrome or trisomy 18 If you have questions concerning this report: For clinical consultation, call ; For technical questions, call ext [phone]; For recalculations, fax to [phone]. 96 For additional information, please refer to http://[employer].PPI/faq/[email or web address] (This link is being provided for informational/educational purposes only.) This is a screening test, not a diagnostic test. This risk assessment is based on demographic data provided by the ordering physician. Please notify the laboratory promptly if any data are incorrect. It has been observed that patients who smoke cigarettes during may have a slightly increased risk of having a false positive BALBINA screen for Down Syndrome or trisomy 18 If you have questions concerning this report: For clinical consultation, call ; For technical questions, call ext [phone]; For recalculations, fax to [phone]. 97 For additional information, please refer to [email or web address]://[email or web address]/[email or web address] (This link is being provided for informational/educational purposes only.) This is a screening test, not a diagnostic test. This risk assessment is based on demographic data provided by the ordering physician. Please notify the laboratory promptly if any data are incorrect. It has been observed that patients who smoke cigarettes during may have a slightly increased risk of having a false positive BALBINA screen for Down Syndrome or trisomy 18 If you have questions concerning this report: For clinical consultation, call ; For technical questions, call ext [phone]; For recalculations, fax to [phone]. 98 For additional information, please refer to [email or web address]://[email or web address]/faq/[email or web address] (This link is being provided for informational/educational purposes only.) This is a screening test, not a diagnostic test. This risk assessment is based on demographic data provided by the ordering physician. Please notify the laboratory promptly if any data are incorrect. It has been observed that patients who smoke cigarettes during may have a slightly increased risk of having a false positive BALBINA screen for Down Syndrome or trisomy 18 If you have questions concerning this report: For clinical consultation, call ; For technical questions, call ext [phone]; For recalculations, fax to [phone]. 99 For additional information, please refer to http://[employer].PPI/faq/[email or web address] (This link is being provided for informational/educational purposes only.) This is a screening test, not a diagnostic test. This risk assessment is based on demographic data provided by the ordering physician. Please notify the laboratory promptly if any data are incorrect. It has been observed that patients who smoke cigarettes during may have a slightly increased risk of having a false positive BALBINA screen for Down Syndrome or trisomy 18 If you have questions concerning this report: For clinical consultation, call ; For technical questions, call ext [phone]; For recalculations, fax to [phone]. 10 SEE RESULT BELOW 0 Name: CELY ESTEVEZ : [address]: Precious Rachel CNM Acct: [id number] Unit: [id number] AGE: 28 Location: [facility] Re03/27/18 SEX: F Status: REG REF SPEC: [id number] BRENDEN: 03/27/[address]: Precious Rachel CNM REQ: [id number] RECD: 03/27/18 STATUS: COMP _ SOURCE: URINE SPDESC: ORDERED: Urine Culture COMMENTS: [id number] Urine Source: Random Procedure Result Reported Site Urine Culture Final 03/29/18- 1102 ML No growth of clinically significant organisms * ML - Main Lab . END OF REPORT DEPARTMENT OF PATHOLOGY, [address] [place] [address] Handy Garcia M.D. Director [facility] # [id number] 10 SEE RESULT BELOW 1 Name: CELY ESTEVEZ : [address]: Danny Kelley MD Acct: [id number] Unit: [id number] AGE: 27 Location: [facility] Re11/03/17 SEX: F Status: REG REF SPEC: [id number] BRENDEN: 11/03/[address] [facility] [address]: Danny Kelley MD REQ: [id number] RECD: 11/03/17 STATUS: RICO DUMAS DR: Sharita Leahy MD _ ORDERED: TP IMAGE ANAL, HPV/Thin Prep COMMENTS: [id number] Negative for Intraepithelial lesion or Malignancy A. Ectocervical/Endocervical Specimen Adequacy: Satisfactory of evaluation Transformation zone component identified Patient Information: HPV: High risk HPV RNA testing regardless of pap results. Actual Specimen Date: 11/03/17 Last Menstrual Date: 10/22/17 Date of Last Specimen: 03/23/16 Previous Abnormal Pap Smears?:Y If Yes, enter Diagnosis: Low grade squamous intraepithelial lesion. +HPV Date Time Test Result Flag (u) Normal Range 11/03/171041 @ HPV RNA Negative Negative @ @ The high-risk HPV types detected by the assay include: 16, @ 18, 31, 33, 35, 39, 45, 51, 52, 56, 58, 59, 66, and 68. Signed (signature on file) LEANDER Camilo (ASCP) 11/06 1500 This Pap test was evaluated with the assistance of the DonutsPrep Test Imaging System. Due to cytologic findings at the group contract analyst microscope, comprehensive manual rescreening by a Csr may be required. The Pap Smear is [...] evaluated every 1-3 years. END OF REPORT DEPARTMENT OF PATHOLOGY, [address] [place] [address] Handy Garcia M.D. Director [facility] # [id number] 10 SEE RESULT BELOW 2 Name: CELY ESTEVEZ Doris : [address]: Danny Kelley MD Acct: [id number] Unit: [id number] AGE: 27 Location: [facility] Re03/31/17 SEX: F Status: REG REF SPEC: [id number] BRENDEN: 03/31/17-[address] [facility] [address]: Danny Kelley MD REQ: [id number] RECD: 04/03/17 STATUS: SOUT _ ORDERED: LEVEL 4/2 COMMENTS: [id number] FINAL DIAGNOSIS 1. Uterus, endocervix, curettage: -- [...] performed at Main Lab DEPARTMENT OF PATHOLOGY, [address] [place] [address] Handy Garcia M.D. Director [facility] # [id number] 10 A NEGATIVE results indicates there is no evidence of 3 membrane rupture. 10 SEE RESULT BELOW 4 Name: CELY ESTEVEZ : [address]: Gwen Maurer MD Acct: [id number] Unit: [id number] AGE: 26 Location: [facility] Re08/11/16 SEX: F Status: REG REF SPEC: [id number] BRENDEN: 08/11/16-[address] [facility] [address]: Gwen Maurer MD REQ: [id number] RECD: 08/11/16 STATUS: COMP _ SOURCE: CER/VAG/RE SPDESC: ORDERED: Grp B Strp Scrn COMMENTS: [id number] QUERIES: Is Patient Penicillin Allergic? N Is patient penicillin allergic and/or sensitivities needed? N Provider Requisition # [id number]_ Procedure Result Reported Site Group B Strep Culture Screen Final 08/13/16- 1042 ML Group B Strep Screen Negative * ML - MAIN LAB (PSYCHIATRIC) . END OF REPORT * ML=Testing performed at Main Lab DEPARTMENT OF PATHOLOGY, [address] [place] [address] Handy Garcia M.D. Director [facility] # [id number] 10 [id number] 10 This specimen showed expected representation of chromosome 6 21, 18, and 13 material. Microdeletion testing was not performed per clinician request. 10 Consistent with a female fetus. 7 10 No apparent abnormality was detected. See "Limitations" 8 below. 10 Microdeletion testing was not performed per clinician 9 request. 11 Laboratory results and submitted clinical information 0 reviewed by Mikel Gallagher, Ph.D., [facility]. 11 This test has been validated on women with a suazo 1 that is >=10 weeks gestational age. As [...] Health care providers, please contact your local [employer] genetic counselor or call [facility] [place] ([phone]) for assistance with interpretation of these results. 11 Sensitivity Specificity 2 T21 >99.9% >99.9% T18 >99.9% >99.9% T13 >99.9% >99.9% Accuracy Y >99.9% Performance of the [facility] Advanced laboratory-developed test (LDT) has been determined based on internal analytical assessment. 11 Circulating cell-free (cf) DNA was isolated from plasma. It 3 was then detected on a massively parallel [...] its performance characteristics have been determined by [employer] [facility]. It has not been cleared or approved by the U.S. Food and Drug Administration. The FDA has determined that such clearance or approval is not necessary. Performance characteristics refer to the analytical performance of the test. This test is performed pursuant to a license agreement with [employer]. This test was developed and its analytical performance characteristics have been determined by [employer] [facility]. It has not been cleared or approved by FDA. This assay has been validated pursuant to the CLIA regulations and is used for clinical purposes. 11 Test not performed. No suitable specimen received. 4 11 [id number] 11 Therapeutic target for the treatment of diabetes 6 Mellitus patients is <7% HBA1C, and in selective patients <6.0%.Please refer to [place] Diabetes Association Diabetic care guidelines for further information. 11 [id number] 11 Warning: A positive result is not useful for establishing a 8 diagnosis of syphilis. In most situations, such a result may reflect a prior treated infection; a negative result can exclude a diagnosis of syphilis except for incubating or early primary disease. 11 It is recognized that currently available assays for the 9 detection of antibodies to HIV-1 and/or HIV-2 [...] 95% confidence interval of 99.78 to 99.96%. 12 ADDITIONAL INFORMATION 0 Testing performed by Inductively Coupled Plasma-Mass Spectrometry (ICP-MS). This test was developed and its performance characteristics determined by [facility] in a manner consistent with CLIA requirements. This test has not been cleared or approved by the U.S. Food and Drug Administration. 12 SEE RESULT BELOW 1 Name: CELY ESTEVEZ : [address]: Zaina ADAME Acct: [id number] Unit: [id number] AGE: 26 Location: [facility] Re03/23/16 SEX: F Status: REG REF SPEC: [id number] BRENDEN: 03/23/16-[address]: Zaina ADAME REQ: [id number] RECD: 03/24/16 STATUS: SOUT _ ORDERED: IMAGE ANALYSIS, PAP SM PATH REV COMMENTS: [id number] FINAL DIAGNOSIS EPITHELIAL CELL ABNORMALITIES Low grade [...] was evaluated with the assistance of the DonutsPrep Test Imaging System. Due to cytologic findings at the group contract analyst microscope, comprehensive manual rescreening by a Csr may be required. The Pap Smear is [...] performed at Main Lab DEPARTMENT OF PATHOLOGY, [address] [place] [address] Handy Garcia M.D. Director [facility] # [id number] 12 SEE RESULT BELOW 2 Name: CELY ESTEVEZ : [address]: Zaina ADAME Acct: [id number] Unit: [id number] AGE: 26 Location: [facility] Re03/23/16 SEX: F Status: REG REF SPEC: [id number] BRENDEN: 03/23/16-[address]: Zaina ADAME REQ: [id number] RECD: 03/23/16 STATUS: COMP _ SOURCE: URINE SPDESC: ORDERED: Urine Culture COMMENTS: [facility] [id number] Procedure Result Reported Site Urine Culture Final 03/24/16- 1628 ML No Growth (<1,000 CFU/mL) * ML - MAIN LAB ([facility]) . END OF REPORT * ML=Testing performed at Main Lab DEPARTMENT OF PATHOLOGY, [facility], [place] [address] Handy Garcia M.D. Director [facility] # [id number] 12 Test Performed by: 3 [facility] - [address] [address] [employer]: Ken Rojas II, M.D., Ph.D. 12 RUN DATE: 08/08/12 [facility] LAB LIVE PAGE 1 4 RUN TIME: 5723 [facility] [employer] [place], [place] [address] Specimen Inquiry Name: CELY ESTEVEZ : [address]: Christie Pearson NP Acct: [id number] Unit: [id number] AGE: 22 Location: [facility] Re08/07/12 SEX: F Status: REG REF SPEC: [id number] BRENDEN: 08/07/12-[address]: Christie Pearson NP REQ: [id number] RECD: 08/08/12 STATUS: SOUT _ ORDERED: IMAGE [...] Abnormal Pap Smears?:N Signed (signature on file) LEANDER Lopez (ASCP) 08/08/12 7594 This Pap test was evaluated with the assistance of the ThinPrep Test Imaging System. Due to cytologic findings at the group contract analyst microscope, comprehensive manual rescreening by a Csr may be required. The Pap Smear is [...] performed at Main Lab DEPARTMENT OF PATHOLOGY, [address] [place] [address] Handy Garcia M.D. Director [facility] Permit #[id number] [address] Lopez. Pt was seen on 12/29/11. Pt has f/u in 1 month. Pt had dose increase 5 of methimazole.( 10 mg daily/pt has been compliant) 12 ---- 6 RUN DATE: 12/13/11 [facility] NMI LIVE PAGE 1 RUN TIME: 1406 Specimen Inquiry RUN USER: INTERFACE -- Name: CELY ESTEVEZ Status: DIS IN Re12/10/11 Age/Sex: 21/F Unit#: [id number] Location: [facility] : [birth year] -- Specimen: [id number] RICO Spec Date:12/10/11- Dr: Gwen Chaney MD Spec Type: SURGICAL P Received:12/12/11-1013 Copies to: SPECIMEN PLACENTA HISTORY PRE-OP DIAGNOSIS: Transverse lie GROSS DESCRIPTION The specimen is received in formalin labelled Cely Estevez, Placenta, and consists of a placenta with [...] The membranes are thin, translucent, and pliable. Nursing Student sections, two cassettes. DIAGNOSIS Placenta: A. Third trimester placenta with umbilical cord with three blood vessels. B. Unremarkable membranes. Signed Electronically by: DENISE CHAKRABORTY 12/13/11 1406 -- -- DEPARTMENT OF PATHOLOGY, [address] [place] [address] [facility] Permit #[id number] Handy Garcia M.D. Director Maren Elias rosio -- 12 7 RUN DATE: 11/25/11 [facility] NMI LIVE PAGE 1 RUN TIME: 1057 Specimen Inquiry RUN USER: INTERFACE Name: CELY ESTEVEZ Status: REG REF Re11/23/11 Age/Sex: 21/F Unit#: [id number] Location: [facility] : [birth year] SPEC #: [id number] BRENDEN: 11/23/11 STATUS: MOISE REQ #: [id number] RECD: 11/23/[address] [facility] [address]: Manda Field CNM SOURCE: GENITAL ENTR: 11/23/[address]: CATYC: VAG/RECT ORDERED: GENITAL CULTURE QUERIES: MEDENT REQUISITION # [id number] ACT WKST: B 11/25/11 #1 Procedure Result Verified Site > GENITAL CULTURE Final 11/25/11- 1057 ML NORMAL GENITAL DELLA ML - [facility] State Permit #[id number] [address] [place] [address] DEPARTMENT OF PATHOLOGY, [address] [place] [address] [facility] Permit #[id number] Handy Garcia M.D. Director Denise Chakraborty M.D. Incident Response Analyst 12 NON FASTING 8 12 2HR GTT 1HR SERUM 1HR GLUCOSE from 0131:[id number]. 2HR GTT FAST SERUM FASTING GLUCOSE from 9 0131:[id number]. 2HR GTT 2HR SERUM 2HR GLUCOSE from 0131:[id number]. 13 0 GTT NORMAL RANGES FOR OBSTETRICS PER THE [employer] (ACOG) Based on 50 gm dose: Based on 100 gm dose: 1hr <140 mg/dl Fasting <95 mg/dl 1hr <180 mg/dl 2hr <155 mg/dl 3hr <140 mg/dl 13 REFERENCE RANGE: 20-50 MG/DL ABOVE FASTING 1 13 REFERENCE RANGE: 5-15 MG/DL ABOVE FASTING 2 13 3 RUN DATE: 07/13/11 [facility] NMI LIVE PAGE 1 RUN TIME: 1526 Specimen Inquiry RUN USER: INTERFACE Name: CELY ESTEVEZ Status: REG REF Re07/12/11 Age/Sex: 21/F Unit#: [id number] Location: [facility] : 88 SPEC #: [id number] BRENDEN: 07/12/11 STATUS: COMP REQ #: [id number] RECD: 07/12/[address]: Precious Rachel CNM SOURCE: URINE ENTR: 07/12/[address]: PARAMJIT: ORDERED: GC/CHL APTIMA QUERIES: MEDENT REQUISITION # [id number] ACT WKST: GCCHL 11/23/11 #1 Procedure Result Verified Site > CHLAMYDIA TRACHOMATIS RNA Final 07/13/11- 1526 ML NEGATIVE FOR CHLAMYDIA TRACHOMATIS rRNA A [...] result may have adverse psychosocial impact, the [facility] recommends retesting by a method using an [...] than a true positive. DEPARTMENT OF PATHOLOGY, [address] [place] [address] [facility] Permit #[id number] Maren Braden M.D. Incident Response Analyst RUN DATE: 07/13/11 [facility] NMI LIVE PAGE 2 RUN TIME: 1526 Specimen Inquiry RUN USER: INTERFACE Name: CELY ESTEVEZ Status: REG REF Re07/12/11 Age/Sex: 21/F Unit#: [id number] Location: [facility] : 88 -- -- CONTINU ED Procedure Result Verified Site > GC (N. GONORRHOEAE) RNA Final 07/13/11- 1526 ML NEGATIVE FOR NEISSERIA GONORRHOEAE rRNA A [...] may be higher than a true positive. - [facility] Permit #[id number] [address] [place] [address] DEPARTMENT OF PATHOLOGY, [address] [place] [address] [facility] Permit #[id number] Handy Garcia M.D. Director Denise Chakraborty M.D. Incident Response Analyst 13 No bands detected 4 13 No bands detected 5 13 Specific serologic response to B. burgdorferi infection is 6 not detected, but cannot rule out early [...] Test performed by Immunoblot. Test Performed by: [facility] Dpt of Lab Med and Pathology [address] [place] [address] [employer] Buffer: Josef Saavedra III, M.D. 13 FINAL INTERPRETATION: 7 No HIV antibody is detected. . This information has been disclosed to you from confidential records which are protected by [place] State law. State law prohibits you from making [...] forth in Part 63, Title 10, of [facility], sufficient authorization for further disclosure. Disclosure of confidential HIV information that occurs as the result of a general authorization for the release of medical or other information will be in violation of the state law and may result in a fine or a penitentiary sentence. . 13 FINAL: NO GROWTH DAY 2 (<1,000 CFU/mL) 8 13 ---- 9 RUN DATE: 05/19/11 [facility] NMI LIVE PAGE 1 RUN TIME: 1141 Specimen Inquiry RUN USER: INTERFACE -- Name: CELY ESTEVEZ Status: REG REF Re05/17/11 Age/Sex: 21/F Unit#: [id number] Location: [facility] : 88 -- Specimen: [id number] [place] Spec Date: 05/17/[address]: Gwen hooper CNM Spec Type: CYTOLOGY Received: 05/19/114649 Copies to: SOURCE ECTOCERVICAL/ENDOCERVICAL Thin Prep with [...] three years. Initial evaluation performed by Kristie BRAXTON CT([facility]) 05/19/11 Final Interpretation electronically signed by: Kristie BRAXTON([facility]) 05/19/11 1140 -- -- DEPARTMENT OF PATHOLOGY, [address] [place] [address] [facility] Permit #[id number] Handy Garcia M.D. Director Denise Chakraborty M.D. Computer Patternmaker Dir avealr -- 14 Test Performed by: 0 [facility] Dpt of Lab Med and Pathology [address] [place] [address] [employer] Buffer: Josef Saavedra III, M.D. 14 PLEASE NOTE NEW REFERENCE RANGE EFFECTIVE 08. 1 14 PATRICK VALUE=2.01 ( OF 07/27/07 2 Recommended INR for Patients on Oral Anticoagulants Prophylaxis 2.0 - 3.0 Treatment of thrombosis 2.0 - 3.0 Prevention of embolism 2.0 - 3.0 Prevention of embolism from prosthetic heart valves 2.5 - 3.5 14 FINAL: NEGATIVE FOR GROUP B STREPTOCOCCUS 3 14 PLEASE NOTE NEW REFERENCE RANGE EFFECTIVE 08. 4 14 PATRICK VALUE=2.01 ( OF 07/27/07 5 Recommended INR for Patients on Oral Anticoagulants Prophylaxis 2.0 - 3.0 Treatment of thrombosis 2.0 - 3.0 Prevention of embolism 2.0 - 3.0 Prevention of embolism from prosthetic heart valves 2.5 - 3.5 14 . 6 A negative result does not preclude the presence of a C.trachomatis or N.gonorrhoeae infection because results are dependent on adequate specimen collection, absence of inhibitors, and sufficient rRNA to be detected. Test results may be affected by improper specimen collection, improper specimen storage, technical error, or specimen mixup. . 14 . 7 A negative result does not preclude the presence of a C.trachomatis or N.gonorrhoeae infection because results are dependent on adequate specimen collection, absence of inhibitors, and sufficient rRNA to be detected. Test results may be affected by improper specimen collection, improper specimen storage, technical error, or specimen mixup. . 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 YES LAST MENSTRUAL PERIOD: 02/07/08 PATIENT HISTORY: Prior Elsewhere ADEQUACY OF SPECIMEN Satisfactory for evaluation * Transformation zone component identified * DIAGNOSIS NEGATIVE FOR INTRAEPITHELIAL LESION OR MALIGNANCY * This Pap test was evaluated with the assistance of the [employer] Pap Test Imaging System. The Pap Smear [...] years. Final Interpretation electronically signed by: Imelda ESPINO(ASC) 04/17/08 113 2 -- -- DEPARTMENT OF PATHOLOGY, [address] [place] [address] [facility] Permit #[id number] Handy Garcia M.D. Director of [facility] -- 15 PLEASE NOTE NEW REFERENCE RANGE EFFECTIVE 08. 0 15 PATRICK VALUE=2.01 ( OF 07/27/07 1 Recommended INR for Patients on Oral Anticoagulants Prophylaxis 2.0 - 3.0 Treatment of thrombosis 2.0 - 3.0 Prevention of embolism 2.0 - 3.0 Prevention of embolism from prosthetic heart valves 2.5 - 3.5 15 FINAL INTERPRETATION: 2 No HIV antibody is detected. . This information has been disclosed to you from confidential records which are protected by [place] State law. State law prohibits you from making [...] forth in Part 63, Title 10, of [facility], sufficient authorization for further disclosure. Disclosure of confidential HIV information that occurs as the result of a general authorization for the release of medical or other information will be in violation of the state law and may result in a fine or a penitentiary sentence. . 15 Test Performed by: 3 [facility] Dpt of Lab Med and Pathology [address] [place] [address] [employer] Buffer: Josef Saavedra III, M.D. 15 INTERPRETATION: NORMAL ADULT PATTERN 4 By high-pressure liquid chromatography (HPLC), there is a normal adult pattern of hemoglobins and normal levels of HbA2 and HbF are present. No variant hemoglobins or microcytosis are observed. This is consistent with A/A phenotype. Results were reviewed and interpreted by Beth Rosado M.D., (telephone no. ). Procedures Date Code Description Status 08/31/2018 82796 Echography Uterus Limited Completed 05/24/2018 39496 Ultrasound;Preg Uterus Single Or First Gestation Completed Transabdominal 03/27/2018 87434 Nuchal Translucency Ultrasound /First Gestation Completed 03/31/2017 03976 Colposcopy W/Biopsy Cervix/Endocervical Curettage Completed 09/09/2016 45186 Delivery Only Completed 09/09/2016 52661 Delivery Routine Completed 09/09/2016 93363 Ligation/Transection Fallopian Tubes During Surgery Completed 09/01/2016 15137 Non-Stress Test Completed 05/03/2016 58930 Colposcopy Of The Cervix Inc Upper/Adjacent Vagina Completed 04/21/2016 97334 Echography Uterus Complete Completed 03/23/2016 00990 Echography Uterus Complete Completed 03/23/2016 32889 Echography Uterus Complete Completed 12/10/2011 83905 Delivery Routine Completed 12/10/2011 32715 Delivery Only Completed 11/23/2011 59421 Echography Uterus Follow-Up Or Repeat Completed 10/05/2011 88655 Echography Uterus Follow-Up Or Repeat Completed 08/09/2011 30869 Echography Uterus Complete Completed 06/14/2011 43146 Nuchal Translucency Ultrasound /First Gestation Completed 11/07/2008 41333 Obstetric Care Routine Completed 11/06/2008 89144 Non-Stress Test Completed 11/05/2008 98205 Non-Stress Test Completed 06/27/2008 78459 Echography Uterus Complete Completed 05/07/2008 07494 Nuchal Translucency Ultrasound /First Gestation Completed 05/07/2008 44147 Nuchal Translucency Ultrasound /First Gestation Completed Encounters Type Date Location Provider Dx Diagnosis Office Visit 11/03/2017 [facility] Office Danny Kelley, 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 Office Visit 04/23/2015 3:00p [facility] Office Danny Velez 215.5 Benign Neoplasm Maren Kelley Abdomen Connective & Soft Tissue Office Visit 08/19/2013 11:00a [facility] Office Christie eParson NP V72.31 Routine Pet Counselor Examination V76.2 Screening Malignant Neoplasm Cervix Office Visit 08/07/2012 1:00p [facility] Office Christie Pearson V72.31 Routine Pet Counselor SOFTWARE QUALITY ASSURANCE SPECIALIST Examination V76.2 Screening Malignant Neoplasm Cervix V25.8 Contraceptive Management Spec Other Office 11/23/2011 [facility] Office Danny Velez 652.93 Malposition/Malpresentation Visit 10:00a Maren Kelley Unspec Antepartum Cond Or Compl Office 11/06/2008 Delivery Gwen 644.13 Labor Threatened Other Visit 10:35a MD Erasto Antepartum Cond Or Compl Office 11/05/2008 Non - April Alma 655.73 Movements Decreased Visit 1:29p Surgical SOFTWARE QUALITY ASSURANCE SPECIALIST, CNM Antepartum Cond Or Compl Hospital Office 09/01/2008 [facility] Office Danny Velez 786.9 Respiratory & Chest Symptoms Visit 11:00a Maren Kelley Other Office 05/08/2008 [facility] Danny Velez V22.1 Supervison Of Normal Visit 11:20a Maren Kelley Other V67.9 Exam Follow Up Unspec V26.33 Genetic Counseling Plan of Treatment Future Appointment(s):10/31/2018 1:00 pm - Gwen Maurer MD at [facility]09/18/2018 10:00 am - Danny Kelley M.D. at [facility]09/24/2018 2: 15 pm - Hunter Alexandre MD at [facility]10/05/2018 10:20 am - Dominguez Denis CNM at [facility]09/28/2018 7:45 am - Danny Kelley M.D. at [place] [id number] 7:45 am - Gwen Maurer [place] [facility] [place]
--- OUTSIDE RECORDS SUMMARY | 2018-09-28 06:04 | XMS REPORT | Continuity of Care Document ---
:1990 External Reference #:[id number] Author Name Connie Steven Care Team Providers Name Role Phone Sharita Leahy MD Primary Care Physician Unavailable Payers Type Date Identification Numbers Payment Provider Subscriber Effective: 2014 Policy Number: [id number] [facility] Kayla Estevez PayID: [id number] [address] [address] [place] [address] Advance Directives Description No Information Available Problems [...] currently use illegal drugs Smoking Status Reviewed: 09/14/18 Patient is a current smoker, smokes every [...] to R10.2 Erianna Support Belt 2017 patient. Cira, Use as CNM directed Mucinex D 05/24/ [...] take 1 Gwen 2016 - tablet by Erasto, 10/25/ mouth two 2017 times a day for 14 days Breast Pump 10/11/ Hx Misc 1units double Danny A. 2016 - electric Gelber, 10/25/ breast M.D. [...] 324(38Fe) 60tabs 1 by mouth Danny Velez Glucjustin 2016 - mg every day Gelber, 06/28/ M.D. 2015 Acetaminophen 03/23/ Hx Tablets 500mg 45tabs take 1-2 Zaina 2016 - tablets PO Aleah, 03/07/ every 6 LM 2017 hours prn headaches Ibuprofen 04/23/ Hx Tablets 600mg 30tabs 1 by mouth D21.4 Nancy 2014 - four times Fede, 09/12/ a day x 5 CNM 2016 days No Active 08/19/ Hx Unknown Medications 2012 - 2012 Alyacen 1/35 01/18/ Hx Tablets 1-35mg-mcg 21tabs 1 po qd Christie 2011 - start Michel, INCOME TAX EXPERT 01/19/122011 Nexplanon 11/13/ Hx Implant 68mg Unknown 2011 - 2012 Prevacid 10/30/ Hx Capsules 15mg 1 daily by Manda Fan 2011 - DR caryn Field, 01/18/ CNM 2011 Methimazole 08/02/ Hx Tablets 5mg 1 daily , 2010 - Kerwin, 08/05/ M.D. 2012 Zofran Odt 05/17/ Hx Tablets 8mg 20tabs 1 po q 4-6 Gwen 2010 - Dispers hrs prn Doris Patrick, 07/12/ for nausea CN 2010 Zofran 05/17/ Hx Tablets 8mg 60tabs 1 tablet Jarodripapi 2010 - po q 6 hrs Fede, 12/20/ prn not to CNM 2011 exceed 32 mg/day Zithromax 10/01/ Hx Tablets 250mg 6tabs take 2 Tala 2008 - tablets Haroon, 11/06/ today, CNM 2008 then 1 tablet daily Precare 05/20/ Hx Chewtabs 30unit 1 PO qd Danny Kelley, 05/17/ MPeterDPeter 2010 Natachew 05/08/ Hx Chewtabs 90unit 1 po qd Danny Velez 2008 Kirti Kelley, 05/20/ M.DPeter 2007 /Folic 04/18/ Hx Tablets 90tabs 1 PO qd Kimberlyn Acid 2007, 05/08/ ANP-C 2007 Ferrous Sulfate 04/18/ Hx Tablets 324mg 60tabs 1 po bid Kimberlyn 2007, 10/01/ ANP-C 2008 Macrobid 04/18/ Hx Capsules 100mg 14caps 1 PO bid Kimberlyn 2007, 04/25/ ANP-C 2007 Lexapro / Hx Tablets 20mg 30tabs 1 po qd Unknown 0000 - 2014 Loratadine /00/ Hx Tablets 10mg prn Unknown 2016 Cymbalta /00/ Hx Unknown 2015 Cymbalta 00/ Hx Caps DR 30mg by mouth Unknown 0000 - Part every day 2015 Lexapro 00/ Hx Tablets 10mg 1 po qd Unknown 2016 Multi Vitamin / Hx 1 po qd Unknown 2016 Flaquita Allergy / Hx Unknown 2017 Nasal Meno / Hx Unknown 2017 Claritin 00/ Hx Unknown 2017 Immunizations CPT Code Status Date Vaccine Lot # [id number] Given 06/28/2016 Tetnus, Diptheria Toxoids And Acellular Pertussis, [id number] PT > 7Yrs Old Vital Signs Date Vital Result Comment 03/27/2018 12:51pm BP Systolic 114 mmHg BP Diastolic 66 mmHg Height 61 inches 5'1" Weight 138.00 lb BMI (Body Mass Index) 26.1 kg/m2 Last Menstrual Period 6364826 5 Parity 3 11/03/2017 10:19am BP Systolic 118 mmHg BP Diastolic 66 mmHg Height 61 inches 5'1" Weight 138.00 lb BMI (Body Mass Index) 26.1 kg/m2 Last Menstrual Period 2704311 4 Parity 3 03/31/2017 3:38pm BP Systolic 112 mmHg BP Diastolic 68 mmHg Height 61 inches 5'1" Weight 147.00 lb BMI (Body Mass Index) 27.8 kg/m2 Last Menstrual Period 7453043 4 Parity 3 10/27/2016 10:57am BP Systolic 108 mmHg BP Diastolic 64 mmHg Height 61 inches 5'1" Weight 137.00 lb BMI (Body Mass Index) 25.9 kg/m2 Last Menstrual Period 5952116 4 Parity 3 10/17/2016 11:17am BP Systolic 110 mmHg BP Diastolic 60 mmHg Height 61 inches 5'1" Weight 135.00 lb BMI (Body Mass Index) 25.5 kg/m2 Last Menstrual Period 4545744 4 Parity 2 09/28/2016 9:17am BP Systolic 110 mmHg BP Diastolic 76 mmHg Body Temperature 98.4 F Height 61 inches 5'1" Weight 135.00 lb BMI (Body Mass Index) 25.5 kg/m2 Last Menstrual Period 0939741 4 Parity 2 09/16/2016 12:00am BP Systolic [...] Mass Index) 28.6 kg/m2 Last Menstrual Period 2338995 4 Parity 2 05/03/2016 1:30pm BP Systolic 102 mmHg BP Diastolic 64 mmHg Height 61.5 inches 5'1.50" Weight 127.00 lb BMI (Body Mass Index) 23.6 kg/m2 Last Menstrual Period 2476844 4 Parity 2 03/23/2016 11:23am BP Systolic 120 mmHg BP Diastolic 64 mmHg Height 61.5 inches 5'1.50" Weight 121.00 lb BMI (Body Mass Index) 22.5 kg/m2 Last Menstrual Period 0877120 4 Parity 2 10/13/2015 10:18am BP Systolic 116 mmHg BP Diastolic 72 mmHg Height 61.5 inches 5'1.50" Weight 112.00 lb BMI (Body Mass Index) 20.8 kg/m2 Last Menstrual Period 7163439 3 Parity 2 05/27/2015 10:12am BP Systolic 116 mmHg BP Diastolic 70 mmHg Heart Rate 79 /min Respiratory Rate 18 /min Height 61.5 inches Weight 122.00 lb BMI (Body Mass Index) 22.7 kg/m2 04/23/2015 2:53pm BP Systolic 112 mmHg BP Diastolic 74 mmHg Height 60.75 inches 5'0.75" Weight 122.00 lb BMI (Body Mass Index) 23.2 kg/m2 Last Menstrual Period 8182696 08/19/2013 10:36am BP Systolic 100 mmHg BP Diastolic 60 mmHg Height 60.75 inches 5'0.75" Weight 125.00 lb BMI (Body Mass Index) 23.8 kg/m2 Last Menstrual Period 2347595 3 Parity 2 08/07/2012 12:41pm BP Systolic [...] Mass Index) 20.0 kg/m2 Last Menstrual Period 1101978 3 Parity 1 12/15/2008 11:08am BP Systolic 110 mmHg BP Diastolic 58 mmHg Body Temperature 98.4 F Height 60.5 inches 5'0.50" Weight 121.00 lb BMI (Body Mass Index) 23.2 kg/m2 Last Menstrual Period 0 1 Parity 1 04/16/2008 1:32pm BP Systolic 106 mmHg BP Diastolic 58 mmHg Height 60.5 inches 5'0.50" Weight 105.00 lb BMI (Body Mass Index) 20.2 kg/m2 Last Menstrual Period 7957539 Results Test Date Facility Test Result H/L Range Note Laboratory test 08/31/2018 [facility] Genital For SEE RESULT 1 [place] [address] GRP B Strep BELOW [phone] Only Laboratory test 07/11/2018 [facility] Glucose 1 HR 109 mg/dL N 70-160 2 [place] [address] Post Prandial [phone] CBC With No Diff 07/11/2018 [facility] White Blood 16.7 10^3/uL High 3.5-10.8 [place] [address] Count [phone] Red Blood Count 3.36 10^6/uL Low 4.00-5.40 [...] fL N 7.4-10.4 Sequential Integreated SCRN 2 GA 04/24/2018 [facility] Interpretation SEE BELOW 3 Risk [...] Of Delivery 10/05/2018 Nuchal Translucency 2.4 mm [place] Rump Length 62 mm Ultrasound Date 03/27/2018 Nasal Bone NOT GIVEN Mother's Ethnic Origin OTHER Insulin Depend Diabetic N Repeat Specimen NO Number Of Fetuses 1 HX Of Neural Tube Defects NO Cigarette Smoker NOT GIVEN Twin B Nasal Bone NG 9 GC/Chlamydia Dna 04/24/2018 [facility] Chlamydia [place] [address] trachomatis Rna [phone] Neisseria gonorrhoeae (GC) Rna Negative Negative TSH & T4,Free 04/24/2018 [facility] TSH 0.83 mIU/L 0.40-4.50 10 T4,Free 0.9 ng/dL 0.8-1.8 Urine Drug 04/24/2018 [facility] Urine Amphetamine Negative ng/ mL 11 Comp 20 [place] [address] [phone] Urine Barbiturates Negative ng/mL 12 Urine Benzodiazepines Negative ng/mL 13 Urine Cocaine Negative ng/mL 14 Urine Phencyclidine Negative ng/mL Cutoff: 25 Urine Tetrahydrocannabinol Negative ng/mL Cutoff: 50 15 Creatinine, Urine 59.4 mg/dL Specific Roy 1.008 pH 7.4 Oxidants Negative 16 Adulterants Comment Normal Codeine, Ur Not Detected ng/mL Cutoff: 25 17 Bnpilhp-7-efpo-glucuronide, Ur Not Detected ng/mL 18 Morphine, Ur Not Detected ng/mL Cutoff: 25 19 Htncxahy-0-nmxg-glucuronide, U Not Detected ng/mL 20 6-monoacetylmorphine, Ur Not Detected ng/mL Cutoff: 25 21 Hydrocodone, Ur Not Detected ng/mL Cutoff: 25 22 Norhydrocodone, Ur Not Detected ng/mL Cutoff: 25 23 Dihydrocodeine, Ur Not Detected ng/mL Cutoff: 25 24 Hydromorphone, Ur Not Detected ng/mL Cutoff: 25 25 Ofnlvzupxhmwz0ogdceuagtkbuhok Not Detected ng/mL 26 Oxycodone, Ur Not Detected ng/mL Cutoff: 25 27 Noroxycodone, Ur Not Detected ng/mL Cutoff: 25 28 Oxymorphone, Ur Not Detected ng/mL Cutoff: 25 29 Uwfnnabsgkq-0-zjdk-glucuronide Not Detected ng/mL 30 Noroxymorphone, Ur Not Detected ng/mL Cutoff: 25 31 Fentanyl, Ur Not Detected ng/mL Cutoff: 2 32 Norfentanyl, Ur Not Detected ng/mL Cutoff: 2 33 Meperidine, Ur Not Detected ng/mL Cutoff: 25 34 Normeperidine, Ur Not Detected ng/mL Cutoff: 25 35 Naloxone, Ur Not Detected ng/mL Cutoff: 25 36 Ujbltrvv-9-jrap-glucuronide, U Not Detected ng/mL 37 Methadone, Ur [...] Ur Not Detected ng/mL Cutoff: 50 45 Roscngujnt-bngs-cxqdyqhbbxc, U Not Detected ng/mL 46 Buprenorphine, Ur Not Detected ng/mL Cutoff: 5 47 Norbuprenorphine, Ur Not Detected ng/mL Cutoff: 5 48 Norbuprenorphine glucuronide Not Detected ng/mL Cutoff: 20 49 Opioid Interpretation See Comment 50 Spinal Muscular 03/27/2018 [facility] Result Summary See Comment 51 [place] [address] SCRN D/D [phone] Result See Comment 52 Interpretation See Comment 53 Additional Information See Comment 54 Specimen WB Whole Blood Released By See Comment 55 Parvovirus B19 03/27/2018 [facility] Parvovirus Negative Negative [place] [address] (B19) IgG [phone] Antibody Parvovirus (B19) IgM Antibody Negative Negative Parvovirus Interpretation See Comment 56 Lead 03/27/2018 [facility] Lead,Venous, B < 1.0 g/dL 0.0- 4.9 57 [place] [address] [phone] Submitting Laboratory Phone [phone] 58 HIV 1/2 AB 03/27/2018 [facility] HIV 1 2 Nonreactive Nonreactive 59 [place] [address] Antibody [phone] Laboratory 03/27/2018 [facility] TSH (Thyroid 1.56 mcIU/mL N 0.34-5.60 60 [place] [address] Stimulating [phone] Horm) Free T4 0.60 ng/dL Low 0.61-1.12 61 Rubella Screen Immune Immune 62 Hemoglobin A1c 4.9 % N 4.0-5.6 63 Syphillis Igg W/Reflex RPR Nonreactive Nonreactive 64 Hepatitis B Surface Antigen Nonreactive Nonreactive 65 CBC With No 03/27/2018 [facility] White Blood 13.5 10^3/uL High 3.5-10.8 [place] [address] Count [phone] Red Blood Count 3.87 10^6/uL Low 4.00-5.40 [...] um3 N 7.4-10.4 Sequential Integrated SCRN 1 GA 03/27/2018 [facility] Interpretation SEE BELOW 66 Age Risk Down Syndrome 1:520 [place] Down Syndrome Risk IN PROCESS <1:50 [place] Trisomy 18 Risk IN PROCESS <1:100 Calculated Gestational Age 12.4 67 Batsheva-A 1012.9 ng/mL 68 Batsheva-A Mom 0.96 HCG,Serum 32.7 IU/mL HCG Mom 0.33 NT Mom 1.70 69 Referring Physician Name TALA RACHEL 70 Referring Physician Phone [phone] Referring Physician Npi [id number] Date Of 1990 73 Collection Date [...] NOT GIVEN 86 Ultrasound Date 03/27/2018 87 Cottonseed Meat Presser's Name SILVIA 88 NTQR Cottonseed Meat Presser Id# [id number] NTQR Location Id# [id number] NTQR Reading Phys Id# [id number] FMF Cottonseed Meat Presser Id# NOT GIVEN 92 [place] Rump Length 62 mm 93 Nuchal Translucency 2.4 mm 94 Nasal Bone NOT GIVEN 95 If Twins NOT GIVEN 96 Twin B CRL NG mm 97 Twin B NT NOT GIVEN mm 98 Twin B Nasal Bone NG 99 Type And Screen 03/27/2018 [facility] Patient [place] [address] [phone] Antibody Screen NEGATIVE Urine Culture And 03/27/2018 [facility] Urine Culture SEE RESULT 100 [place] [address] BELOW [phone] Laboratory test 11/03/2017 [facility] Cytology SEE RESULT [address] [place] [address] BELOW [phone] Laboratory test 03/31/2017 [facility] Surgical SEE RESULT [address] [place] [address] Pathology BELOW [phone] Laboratory Studies 09/10/2016 N2N/CCD Import Absolute 0.1 [...] 16.7 10^3/ul High 3.5-10.8 Laboratory test 09/01/2016 [facility] Rupture of Negative N [address] [place] [address] Membranes [phone] Laboratory test 08/11/2016 [facility] Genital For SEE RESULT [address] [place] [address] GRP B Strep BELOW [phone] Only Laboratory test 06/14/2016 [facility] Glucose 1 HR 98 mg/dL N 70-1 [address] [place] [address] Post Prandial 60 [phone] CBC With No 06/14/2016 [facility] White Blood 14.8 10^3/uL High 3.5- [place] [address] Count 10.8 [phone] Red Blood Count 3.20 10^6/uL Low 4.0-5.4 Hemoglobin 10.3 g/dL Low 12.0-16.0 Hematocrit 31 % Low 35-47 Mean Corpuscular Volume 98 fL High 80-97 Mean Corpuscular Hemoglobin 32 pg High 27-31 Mean Corpuscular HGB Conc 33 g/dL N 31-36 Red Cell Distribution Width 13 % N 10.5-15 Platelet Count 360 10^3/uL N 150-450 Mean Platelet Volume 9 um3 N 7.4-10.4 GC/Chlamydia Dna 04/21/2016 [facility] Chlamydia [place] [address] trachomatis Rna [phone] Neisseria gonorrhoeae (GC) Rna Negative N Negative [...] SEE NOTE 114 Advanced PNL No 03/23/2016 [facility] Rubella Screen Immune IU/ mL N Immune 115 [place] [address] [phone] Hemoglobin A1c 4.6 % N Less than 6.0 116 Hepatitis B Surface Ag Nonreactive N Nonreactive 117 Syphillis Igg W/Reflex RPR Nonreactive N Nonreactive 118 CBC With No 03/23/2016 [facility] White Blood 14.1 10^3/uL High 3.5-10.8 [place] [address] Count [phone] Red Blood Count 3.55 10^6/uL Low 4.0-5.4 [...] um3 N 7.4-10.4 Type And Screen 03/23/2016 [facility] Patient Blood Type O Positive N [place] [address] [phone] Antibody Screen NEGATIVE N HIV 1/2 AB 03/23/2016 [facility] HIV 1 2 Nonreactive N Nonreactive 119 Evaluation [place] [address] Antibody [phone] Lead 03/23/2016 [facility] Lead <1.0 g/dL N 0.0-4.9 120 [place] [address] [phone] Laboratory test 03/23/2016 [facility] Cytology SEE RESULT [address] [place] [address] BELOW [phone] Urine Culture 03/23/2016 [facility] Urine SEE RESULT [address] [place] [address] Culture BELOW Sensitivities [phone] Thyroid 10/13/2015 [facility] Thyroid 1.0 mIU/L N 0.3-4.2 [address] [place] [address] Stim [place] [phone] Hormone Laboratory test 08/07/2012 [facility] Cytology RUN DATE: [address] [place] [address] 08/08/ <SEE [phone] NOTE> Laboratory test 12/26/2011 [facility] Thyroxine 2.25 ng/dL High 0.61-1.24 [address] [place] [address] Free [phone] T3 Total 2.90 NG/ML High 0.5-1.7 T3 Free 7.54 pg/mL High 2.39-6.79 TSH 0.09 MIU/ML Low 0.34-5.60 Surgical 12/10/2011 [facility] Surgical [address] [place] [address] Pathology <SEE NOTE> [phone] Laboratory 12/05/2011 [facility] Thyroxine 1.59 ng/dL High 0.6 [place] [address] Free 1-8 [phone] .24 T3 Total 2.93 NG/ML High 0.5-1.7 T3 Free 7.09 pg/mL High 2.39-6.79 TSH 0.11 MIU/ML Low 0.34-5.60 Culture 11/23/2011 [facility] M [address] [place] [address] <SEE NOTE> [phone] Laboratory 10/27/2011 [facility] Thyroxine 1.37 ng/dL High 0.6 [address] [place] [address] Free 1-6 [phone] .24 T3 Total 2.46 NG/ML High 0.5-1.7 T3 Free 5.63 pg/mL 2.39-6.79 TSH 0.13 MIU/ML Low 0.34-5.60 Laboratory test 09/20/2011 [facility] TSH 0.21 MIU/ML Low 0.34 -5.60 [address] [place], [place] [address]37 [phone] Thyroxine Free 1.75 ng/dL High 0.61-1.24 Glucose Tolerance 2HR Obgyn (SEE NOTE) mg/dL 130 CBC No Diff 09/20/2011 [facility] White Blood 15.4 CUMM High 4.8-10.8 [place] [address] Count [phone] Red Cell Count 3.74 CUMM Low 4.2-5.4 Hemoglobin 12.0 g/dL 12.0-16.0 Hematocrit 35 % 35-47 Mean Corpuscular Volume 93 um3 79-97 Mean Corpuscular Hemoglob 32 pg High 27-31 Mean Corpuscular HGB Cone 34 g/dL 32-36 Redcell Distribution WDTH 13 % 10.5-15 Platelet Count 313 CUMM 150-450 Mean Platelet Volume 9.8 um3 7.4-10.4 Glucose 2HR 09/20/2011 [facility] Fasting Glucose 83 mg/dL 70 -110 Tolerance (CMC) [place] [address] [phone] 1HR Glucose 95 mg/dL 131 2HR Glucose 101 mg/dL 132 GC/Chlamydia 07/12/2011 [facility] M [address] [place] [address] <SEE NOTE> [phone] Lyme Western 07/12/2011 [facility] Lyme Igg Negative [place] [address] Western [phone] Blot Lyme Igg Bands Detected No bands detecte <SEE NOTE> kDa () 134 Lyme Igm Western Blot Negative Negative Lyme Igm Bands Detected No bands detecte <SEE NOTE> kDa () 135 Lyme Disease Interpretation . () 136 Laboratory test 07/12/2011 [facility] TSH 0.09 MIU/ML Low 0.34 -5.60 [place] [address] [phone] Thyroxine Free 1.78 ng/dL High 0.61-1.24 Prental PNL 06/14/2011 [facility] Hepatitis B Nonreactive [place] [address] Surface Ag [phone] Rubella Screen IMMUNE Immune Syphilis Screen 06/14/2011 [facility] Syphilis [place] [address] [phone] RPR NON-REACTIVE Nonreactive RPR Titer TNP Pediatric/Maternal YES Vad 06/14/2011 [facility] Vad Final NONREACTIVE Nonreactive [address] [place] [address] [phone] Type & 06/14/2011 [facility] [place] [address] Blood Type [phone] Antibody Screen NEGATIVE CBC No Diff 06/14/2011 [facility] White Blood 12.1 CUMM High 4.8-10.8 [place] [address] Count [phone] Red Cell Count 4.06 CUMM Low 4.2-5.4 Hemoglobin 12.8 g/dL 12.0-16.0 Hematocrit 38 % 35-47 Mean Corpuscular Volume 94 um3 79-97 Mean Corpuscular Hemoglob 32 pg High 27-31 Mean Corpuscular HGB Cone 34 g/dL 32-36 Redcell Distribution WDTH 15 % 10.5-15 Platelet Count 335 CUMM 150-450 Mean Platelet Volume 9.8 um3 7.4-10.4 Laboratory test 06/14/2011 [facility] Thyroxine Free 1.64 High 0.61-1.24 [place] [address] ng/dL [phone] TSH 0.48 MIU/ML 0.34-5.60 Urine Culture & 05/17/2011 [facility] Urine Culture NG [address] [place] [address] Sensitivi [phone] Laboratory test 05/17/2011 [facility] Cytology --------- [address] [place] [address] ------- [phone] <SEE NOTE> Laboratory test 11/06/2008 [facility] Ristocetin 120 % 55- 200 [address] [place] [address] Cofactor (VWF) [phone] Laboratory test 10/31/2008 [facility] PTT (Aptt) 25.9 20.1-2 [address] [place] [address] 8.2 [phone] Protime 10/31/2008 [facility] Protime 11.0 10.9-1 [place] [address] 3.3 [phone] Inr 0.83 142 Laboratory test 10/15/2008 [facility] Genital For FINAL: [address] [place] [address] GRP B Strep NEGATIVE <SEE [phone] Only NOTE> Laboratory test 08/20/2008 [facility] PTT (Aptt) 25.2 20.1- [address] [place] [address] 28.2 [phone] Protime 08/20/2008 [facility] Protime 11.5 10.9- [place] [address] 13.3 [phone] Inr 0.90 145 GC/Chlamydia Dna 05/30/2008 [facility] GC By NEGATIVE Negative [address] [place] [address] Aptima [phone] CHL By Aptima NEGATIVE Negative 147 Urine Culture & 05/08/2008 [facility] Urine Culture NG [address] [place] [address] Sensitivi [phone] Laboratory test 04/16/2008 [facility] Cytology --------- [address] [place] [address] ------- [phone] <SEE NOTE> Gram Neg Spencer 04/16/2008 [facility] Ampicillin <=2 [place] [address] [phone] Amikacin <=2 S Ciprofloxacin <=0.25 S Cefazolin <=4 S Nitrofurantoin <=16 S on macrobid Gentamicin <=1 S Imipenem <=1 S Levofloxacin <=0.25 S Meropenem <=0.25 S Trimeth-Sulfa <=20 S Tigecylcine <=0.5 S Piperacillin/Tazobactam <=4 S Urine Culture 04/16/2008 [facility] Urine Culture [place] [address] Sensitivi COLI [phone] Laboratory test 04/16/2008 [facility] PTT (Aptt) 28.5 High 20.1 [address] [place] [address] -28. [phone] 2 Protime 04/16/2008 [facility] Protime 12.6 10.9 [place] [address] -13. [phone] 3 Inr 1.08 151 Manual Diff PN 04/16/2008 [facility] Polysegmented 69 % 38- 83 [place] [address] Neutrophil [phone] Band Neutrophil 2 % 0-8 Lymphocyte 21 % 5-47 Monocyte 1 % 0-13 Eosenophil 7 % High 0-6 Absolute Neutrophil Count 8.5 RBC Morphology NORMAL Vad 04/16/2008 [facility] Vad Final NONREACTIVE Nonreactive [address] [place] [address] [phone] 1 TS 04/16/2008 [facility] [place] [address] Blood Type [phone] Antibody Screen NEGATIVE 1 04/16/2008 [facility] White Blood 12.0 CUMM High 4.8-10.8 [place] [address] Count [phone] Red Cell Count 3.29 CUMM Low 4.2-5.4 [...] note 154 1 SEE RESULT BELOW Name: KAYLA ESTEVEZ : [address]: Hunter Alexandre MD Acct: [id number] Unit: [id number] AGE: 28 Location: [facility] Re08/31/18 SEX: F Status: REG REF SPEC: [id number] BRENDEN: 08/31/18-1139 [facility] [address]: Hunter Alexandre MD REQ: [id number] RECD: 08/31/18 STATUS: COMP _ SOURCE: CER/VAG/RE SPDESC: ORDERED: Grp B Strp Scrn COMMENTS: [id number] QUERIES: Is Patient Penicillin Allergic? N Is patient penicillin allergic and/or sensitivities needed? N Provider Requisition # C77#[id number]_ Procedure Result Reported Site Group B Strep Culture Screen Final 09/03/18- 1018 [facility] Group B Strep Screen Negative * [facility] - Main Lab . END OF REPORT DEPARTMENT OF PATHOLOGY, [address] [place] [address] Handy Garcia M.D. Director [facility] # [id number] SCREEN NEGATIVE FOR OPEN NTD, DOWN SYNDROME AND TRISOMY 18. NT WAS USED IN THE RISK CALCULATIONS. 4 [place] rump length (CRL) was used to calculate gestational age. GABRIEL, if provided, was not used for gestational age dating. 5 Reference Range: <2.50 IDD <1.90 TWINS <4.00 TWINS IDD <3.50 TRIPLETS <4.50 6 This test was performed using a kit that has not been cleared or approved by the FDA. The analytical performance characteristics of this test have been determined by [facility]. This test should not [...] technique. Interpretation reviewed by: Prince Styles, Ph.D., [facility]. 8 NOT PROVIDED, USE PART 1 MATERNAL LT=467 9 For additional information, please refer to [email or web address] (This link is provided for informational/educational purposes [...] call ext [phone]; For recalculations, fax to [phone]. 10 REFERENCE RANGES BELOW ARE APPLICABLE TO [...] 100 21 Metabolite of heroin 22 Lortab, [place], Vicodin; Also a very minor metabolite of [...] developed and its performance characteristics determined by [facility] in a manner consistent with CLIA requirements. This test has not been cleared or approved by the U.S. Food and Drug Administration. Test Performed by: [facility] [employer] [facility] [address] [place] [address] 51 RESULT: NEGATIVE FOR SMN1 DELETION (SEE [...] Copies (2/0) 3 Copies (3/0) ----- 35 1632 08/3499 Ashkenazi Hindu 41 1/350 08/3999 53 1628 08/4999 166 1/121 08/2999 1/117 08/1060 151360 These calculations are based on the population [...] Accession number(s) (build GRCh37 (hg19)): [id number]. See [email or web address] (Test ID SMNCS) for additional information about [...] allogenic donors will interfere with testing. Call [facility] for instructions for testing patients who have received a bone marrow transplant. TEST CLASSIFICATION This test was developed and its performance characteristics determined by [facility] in a manner consistent with CLIA requirements. This test has not been cleared or approved by the U.S. Food and Drug Administration. 54 REFERENCES 1. J Med Susan. 2009; 46: 641-644 (PMID: 40239347) 55 RESULT: Devaughn Brady, Ph.D. 6-1308 Test Performed by: [facility] - [address] [address] 56 No antibody to Parvovirus B19 detected. Acute infection cannot be ruled out as antibody levels may be below the limit of detection. If clinically indicated, a second serum should be submitted in 14-21 days. ADDITIONAL INFORMATION This test has been modified from the shoemaking cutter's instructions. Its performance characteristics were determined by [facility] in a manner consistent with CLIA requirements. This test has not been cleared or approved by the U.S. Food and Drug Administration. Test Performed by: [facility] - [address] [address] 57 ADDITIONAL INFORMATION Testing performed by Inductively Coupled Plasma-Mass Spectrometry (ICP-MS). This test was developed and its performance characteristics determined by [facility] in a manner consistent with CLIA requirements. This test has not been cleared or approved by the U.S. Food and Drug Administration. 58 Test Performed by: [facility] - [address] [address] 59 It is recognized that currently available [...] confidence interval of 99.78 to 99.96%. 60 [id number] 61 [id number] 62 [id number] 63 Therapeutic target for the treatment of diabetes mellitus patients is <7% HBA1C, and in selective patients <6.0%. Please refer to [place] Diabetes Association diabetic care guidelines for further information. 64 Warning: A positive result is not useful for establishing a diagnosis of syphilis. In most situations, such a result may reflect a prior treated infection; a negative result can exclude a diagnosis of syphilis except for incubating or early primary disease. 65 [id number] 66 This patient's risk does not exceed [...] Specimen # from Part 1: [id number] 67 [place] rump length (CRL) was used to calculate gestational age. GABRIEL, if provided, was not used for gestational age dating. 68 This test was performed using a kit that has not been cleared or approved by the FDA. The analytical performance characteristics of this test have been determined by [facility]. This test should not be used for diagnosis without confirmation by other medically established means. 69 Interpretation reviewed by: Brooklynn Engel, Ph.D., [facility]. For additional information, please refer to http://[employer].Surfkitchen/faq/FAQ89 (This link is being provided for informational/educational [...] call ; For technical questions, call ext [phone]; For recalculations, fax to [phone]. 70 For additional information, please refer to http://ProteoSense/faq/FAQ89 (This link is being provided for informational/educational [...] call ext [phone]; For recalculations, fax to [phone]. 71 For additional information, please refer to http://[employer].Surfkitchen/faq/FAQ89 (This link is being provided for informational/educational [...] call ext [phone]; For recalculations, fax to [phone]. 72 For additional information, please refer to http://[employer].Surfkitchen/faq/FAQ89 (This link is being provided for informational/educational [...] call ext [phone]; For recalculations, fax to [phone]. 73 For additional information, please refer to http://ProteoSense/faq/FAQ89 (This link is being provided for informational/educational [...] call ext [phone]; For recalculations, fax to [phone]. 74 For additional information, please refer to http://[employer].Superfeedr.[employer]/faq/FAQ89 (This link is being provided for informational/educational [...] call ext [phone]; For recalculations, fax to [phone]. 75 For additional information, please refer to http://[employer].Surfkitchen/faq/FAQ89 (This link is being provided for informational/educational [...] call ext [phone]; For recalculations, fax to [phone]. 76 For additional information, please refer to http://ProteoSense/faq/FAQ89 (This link is being provided for informational/educational [...] call ext [phone]; For recalculations, fax to [phone]. 77 For additional information, please refer to http://[employer].Surfkitchen/faq/FAQ89 (This link is being provided for informational/educational [...] call ext [phone]; For recalculations, fax to [phone]. 78 For additional information, please refer to http://[employer].Surfkitchen/faq/FAQ89 (This link is being provided for informational/educational [...] call ext [phone]; For recalculations, fax to [phone]. 79 For additional information, please refer to http://[employer].Surfkitchen/faq/FAQ89 (This link is being provided for informational/educational [...] call ext [phone]; For recalculations, fax to [phone]. 80 For additional information, please refer to http://[employer].Surfkitchen/faq/FAQ89 (This link is being provided for informational/educational [...] call ext [phone]; For recalculations, fax to [phone]. 81 For additional information, please refer to http://[employer].Surfkitchen/faq/FAQ89 (This link is being provided for informational/educational [...] call ext [phone]; For recalculations, fax to [phone]. 82 For additional information, please refer to http://[employer].Surfkitchen/faq/FAQ89 (This link is being provided for informational/educational [...] call ext [phone]; For recalculations, fax to [phone]. 83 For additional information, please refer to http://[employer].Superfeedr.[employer]/faq/FAQ89 (This link is being provided for informational/educational [...] call ext [phone]; For recalculations, fax to [phone]. 84 For additional information, please refer to http://education.Superfeedr.[employer]/faq/FAQ89 (This link is being provided for informational/educational [...] call ext [phone]; For recalculations, fax to [phone]. 85 For additional information, please refer to http://[employer].Superfeedr.[employer]/faq/FAQ89 (This link is being provided for informational/educational [...] call ext [phone]; For recalculations, fax to [phone]. 86 For additional information, please refer to http://education.Superfeedr.[employer]/faq/FAQ89 (This link is being provided for informational/educational [...] call ext [phone]; For recalculations, fax to [phone]. 87 For additional information, please refer to http://[employer].Superfeedr.[employer]/faq/FAQ89 (This link is being provided for informational/educational [...] call ; For technical questions, call ext [phone]; For recalculations, fax to [phone]. 88 For additional information, please refer to http://[employer].Superfeedr.[employer]/faq/FAQ89 (This link is being provided for informational/educational [...] call ext [phone]; For recalculations, fax to [phone]. 89 For additional information, please refer to http://[employer].Superfeedr.[employer]/faq/FAQ89 (This link is being provided for informational/educational [...] call ext [phone]; For recalculations, fax to [phone]. 90 For additional information, please refer to http://education.Superfeedr.[employer]/faq/FAQ89 (This link is being provided for informational/educational [...] call ext [phone]; For recalculations, fax to [phone]. 91 For additional information, please refer to http://[employer].Superfeedr.[employer]/faq/FAQ89 (This link is being provided for informational/educational [...] call ext [phone]; For recalculations, fax to [phone]. 92 For additional information, please refer to http://education.Superfeedr.[employer]/faq/FAQ89 (This link is being provided for informational/educational [...] call ext [phone]; For recalculations, fax to [phone]. 93 For additional information, please refer to http://education.Surfkitchen/faq/FAQ89 (This link is being provided for informational/educational [...] call ext [phone]; For recalculations, fax to [phone]. 94 For additional information, please refer to http://ProteoSense/faq/FAQ89 (This link is being provided for informational/educational [...] call ext [phone]; For recalculations, fax to [phone]. 95 For additional information, please refer to http://[employer].Superfeedr.[employer]/faq/FAQ89 (This link is being provided for informational/educational [...] call ext [phone]; For recalculations, fax to [phone]. 96 For additional information, please refer to http://education.Surfkitchen/faq/FAQ89 (This link is being provided for informational/educational [...] call ; For technical questions, call ext [phone]; For recalculations, fax to [phone]. 97 For additional information, please refer to http://[employer].Surfkitchen/faq/FAQ89 (This link is being provided for informational/educational [...] call ext [phone]; For recalculations, fax to [phone]. 98 For additional information, please refer to http://[employer].Superfeedr.[employer]/faq/FAQ89 (This link is being provided for informational/educational [...] call ext [phone]; For recalculations, fax to [phone]. 99 For additional information, please refer to http://[employer].Surfkitchen/faq/FAQ89 (This link is being provided for informational/educational [...] call ; For technical questions, call ext [phone]; For recalculations, fax to [phone]. 10 SEE RESULT BELOW 0 Name: KAYLA ESTEVEZ : [address]: Precious Rachel CNM Acct: [id number] Unit: [id number] AGE: 28 Location: [facility] Re03/27/18 SEX: F Status: REG REF SPEC: [id number] BRENDEN: 03/27/[address]: Precious Rachel CNM REQ: [id number] RECD: 03/27/18 STATUS: COMP _ SOURCE: URINE SPDESC: ORDERED: Urine Culture COMMENTS: [id number] Urine Source: Random Procedure Result Reported Site Urine Culture Final 03/29/18- 1102 ML No growth of clinically significant organisms * ML - Main Lab . END OF REPORT DEPARTMENT OF PATHOLOGY, [address] [place] [address] Handy Garcia M.D. Director [facility] # [id number] 10 SEE RESULT BELOW 1 Name: KAYLA ESTEVEZ : [address]: Danny Kelley MD Acct: [id number] Unit: [id number] AGE: 27 Location: [facility] Re11/03/17 SEX: F Status: REG REF SPEC: [id number] BRENDEN: 11/03/[address] [facility] [address]: Danny Kelley MD REQ: [id number] RECD: 11/03/17 STATUS: RICO DUMAS DR: Sharita Leahy MD _ ORDERED: TP IMAGE ANAL, HPV/Thin Prep COMMENTS: [id number] Negative for Intraepithelial lesion or Malignancy A. [...] 66, and 68. Signed (signature on file) VasiliyLEANDER Anderson (ASCP) 11/06 1500 This Pap test was evaluated with the assistance of the RCT LogicPrep Test Imaging System. Due to cytologic findings at the sap pp consultant microscope, comprehensive manual rescreening by a Manager Unit may be required. The Pap Smear is [...] years. END OF REPORT DEPARTMENT OF PATHOLOGY, [address] [place] [address] Handy Garcia M.D. Director [facility] # [id number] 10 SEE RESULT BELOW 2 Name: KAYLA ESTEVEZ : [address]: Danny Kelley MD Acct: [id number] Unit: [id number] AGE: 27 Location: [facility] Re03/31/17 SEX: F Status: REG REF SPEC: [id number] BRENDEN: 03/31/17-[address] [facility] [address]: Danny Kelley MD REQ: [id number] RECD: 04/03/17 STATUS: SOUT _ ORDERED: LEVEL 4/2 COMMENTS: [id number] FINAL DIAGNOSIS 1. Uterus, endocervix, curettage: -- [...] performed at Main Lab DEPARTMENT OF PATHOLOGY, [address] [place] [address] aHndy Garcia M.D. Director [facility] # [id number] 10 A NEGATIVE results indicates there is no evidence of 3 membrane rupture. 10 SEE RESULT BELOW 4 Name: KAYLA ESTEVEZ : [address]: Gwen Maurer MD Acct: [id number] Unit: [id number] AGE: 26 Location: [facility] Re08/11/16 SEX: F Status: REG REF SPEC: [id number] BRENDEN: 08/11/16-[address]: Gwen Maurer MD REQ: [id number] RECD: 08/11/16120 STATUS: COMP _ SOURCE: CER/VAG/RE SPDESC: ORDERED: Grp B Strp Scrn COMMENTS: [id number] QUERIES: Is Patient Penicillin Allergic? N Is patient penicillin allergic and/or sensitivities needed? N Provider Requisition # [id number]_ Procedure Result Reported Site Group B Strep Culture Screen Final 08/13/16- 1042 ML Group B Strep Screen Negative * ML - MAIN LAB ([facility]) . END OF REPORT * ML=Testing performed at Main Lab DEPARTMENT OF PATHOLOGY, [address] [place] [address] Handy Garcia M.D. Director [facility] # [id number] 10 [id number] 5 10 This specimen showed expected representation of chromosome 6 21, 18, and 13 material. Microdeletion testing was not performed per clinician request. 10 Consistent with a female fetus. 7 10 No apparent abnormality was detected. See "Limitations" 8 below. 10 Microdeletion testing was not performed per clinician 9 request. 11 Laboratory results and submitted clinical information 0 reviewed by Mikel Gallagher, Ph.D., [facility]. 11 This test has been validated [...] Health care providers, please contact your local [facility] genetic counselor or call [employer] [facility] at [employer] ([phone]) for assistance with interpretation of these results. 11 Sensitivity Specificity 2 T21 >99.9% >99.9% T18 >99.9% >99.9% T13 >99.9% >99.9% Accuracy Y >99.9% Performance of the [employer] laboratory-developed test (LDT) has been determined [...] its performance characteristics have been determined by [facility]. It has not been cleared or approved by the U.S. Food and Drug Administration. The FDA has determined that such clearance or approval is not necessary. Performance characteristics refer to the analytical performance of the test. This test is performed pursuant to a license agreement with [employer]. This test was developed and its analytical performance characteristics have been determined by [facility]. It has not been cleared or approved by FDA. This assay has been validated pursuant to the CLIA regulations and is used for clinical purposes. 11 Test not performed. No suitable specimen received. 4 11 [id number] 5 11 Therapeutic target for the treatment of diabetes 6 Mellitus patients is <7% HBA1C, and in selective patients <6.0%.Please refer to [place] Diabetes Association Diabetic care guidelines for further information. 11 [id number] 7 11 Warning: A positive result is [...] developed and its performance characteristics determined by [facility] in a manner consistent with CLIA requirements. This test has not been cleared or approved by the U.S. Food and Drug Administration. 12 SEE RESULT BELOW 1 Name: KAYLA ESTEVEZ : [address]: Zaina ADAME Acct: [id number] Unit: [id number] AGE: 26 Location: [facility] Re03/23/16 SEX: F Status: REG REF SPEC: [id number] BRENDEN: 03/23/16-[address]: Zania ADAME REQ: [id number] RECD: 03/24/167 STATUS: SOUT _ ORDERED: IMAGE ANALYSIS, PAP SM PATH REV COMMENTS: [id number] FINAL DIAGNOSIS EPITHELIAL CELL ABNORMALITIES Low grade [...] was evaluated with the assistance of the Ross[employer]ip Test Imaging System. Due to cytologic findings at the sap pp consultant microscope, comprehensive manual rescreening by a Manager Unit may be required. The Pap Smear is [...] performed at Main Lab DEPARTMENT OF PATHOLOGY, [address] [place] [address] Handy Garcia M.D. Director [facility] # [id number] 12 SEE RESULT BELOW 2 Name: KAYLA ESTEVEZ : [address]: Zaina ADAME Acct: [id number] Unit: [id number] AGE: 26 Location: [facility] Re03/23/16 SEX: F Status: REG REF SPEC: [id number] BRENDEN: 03/23/16-[address]: Zaina ADAME REQ: [id number] RECD: 03/23/16 STATUS: COMP _ SOURCE: URINE SPDESC: ORDERED: Urine Culture COMMENTS: [facility] [address] Procedure Result Reported Site Urine Culture Final 03/24/16- 1628 ML No Growth (<1,000 CFU/mL) * ML - MAIN LAB ([facility]) . END OF REPORT * ML=Testing performed at Main Lab DEPARTMENT OF PATHOLOGY, [facility] [place] [id number] Handy Garcia M.D. Director [facility] # [id number] 12 Test Performed by: 3 [facility] [address] [address] Taxation Agent: Ken Rojas II, M.D., Ph.D. 12 RUN DATE: 08/08/12 [facility] LAB LIVE PAGE 1 4 RUN TIME: 4588 [facility] [employer] [place], [place] [address] Specimen Inquiry Name: KAYLA ESTEVEZ : [address]: Christie Pearson NP Acct: [id number] Unit: [id number] AGE: 22 Location: [facility] Re08/07/12 SEX: F Status: REG REF SPEC: [id number] BRENDEN: 08/07/12-[address]: Christie Pearson NP REQ: [id number] RECD: 08/08/12 STATUS: SOUT _ ORDERED: IMAGE [...] Smears?:N Signed (signature on file) Anila Wilder [place] (ASCP) 08/08/12 6064 This Pap test was evaluated with the assistance of the RCT LogicPrep Test Imaging System. Due to cytologic findings at the sap pp consultant microscope, comprehensive manual rescreening by a Manager Unit may be required. The Pap Smear is [...] performed at Main Lab DEPARTMENT OF PATHOLOGY, [address] [place] [address] Handy Garcia M.D. Director [facility] Permit #[id number] [address] Lopez. Pt was seen on 12/29/11. Pt has f/u in 1 month. Pt had dose increase 5 of methimazole.( 10 mg daily/pt has been compliant) 12 ---- 6 RUN DATE: 12/13/11 [facility] NMI LIVE PAGE 1 RUN TIME: 1406 Specimen Inquiry RUN USER: INTERFACE -- Name: KAYLA ESTEVEZ Acctiti#: [id number] Status: DIS IN Re12/10/11 Age/Sex: 21/F Unit#: [id number] Location: [facility] : [birth year] -- Specimen: [id number] [place] Spec Date:12/10/11- Subm Dr: Gwen Chaney MD Spec Type: SURGICAL P Received:12/12/11-1013 Copies to: SPECIMEN PLACENTA HISTORY PRE-OP DIAGNOSIS: Transverse lie GROSS DESCRIPTION The specimen is received in formalin labelled Kayla Herb, Placenta, and consists of a placenta with [...] The membranes are thin, translucent, and pliable. Technology Resource Teacher sections, two cassettes. DIAGNOSIS Placenta: A. Third trimester placenta with umbilical cord with three blood vessels. B. Unremarkable membranes. Signed Electronically by: DAMI CHAKRABORTY 12/13/11 1406 -- -- DEPARTMENT OF PATHOLOGY, [address] [place] [address] [facility] Permit #[id number] Handy Garcia M.D. Director Dami Chakraborty M.D. Telegraph Repeater Installer Dir rosio -- 12 7 RUN DATE: 11/25/11 [facility] NMI LIVE PAGE 1 RUN TIME: 1057 Specimen Inquiry RUN USER: INTERFACE Name: KAYLA ESTEVEZ Status: REG REF Re11/23/11 Age/Sex: 21/F Unit#: [id number] Location: [facility] : [birth year] SPEC #: [id number] BRENDEN: 11/23/11 STATUS: MOISE REQ #: [id number] RECD: 11/23/[address] [facility] [address]: Manda Field CNM SOURCE: GENITAL ENTR: 11/23/[address]: CATYC: VAG/RECT ORDERED: GENITAL CULTURE QUERIES: MEDENT REQUISITION # [id number] ACT WKST: B 11/25/11 #1 Procedure Result Verified Site > GENITAL CULTURE Final 11/25/11- 1057 ML NORMAL GENITAL DELLA ML - [facility] Permit #[id number] [address] [place] [address] DEPARTMENT OF PATHOLOGY, [address] [place] [address] [facility] Permit #[id number] Handy Garcia M.D. Director Dami Chakraborty M.D. Box Toe Buffer 12 NON FASTING 8 12 2HR GTT 1HR SERUM 1HR GLUCOSE from 0131:[id number]. 2HR GTT FAST SERUM FASTING GLUCOSE from 9 0131:IU09478C. 2HR GTT 2HR SERUM 2HR GLUCOSE from 0131:FS99650S. 13 0 GTT NORMAL RANGES FOR OBSTETRICS PER THE [employer]YN[employer] (ACOG) Based on 50 gm dose: Based on 100 gm dose: 1hr <140 mg/dl Fasting <95 mg/dl 1hr <180 mg/dl 2hr <155 mg/dl 3hr <140 mg/dl 13 REFERENCE RANGE: 20-50 MG/DL ABOVE FASTING 1 13 REFERENCE RANGE: 5-15 MG/DL ABOVE FASTING 2 13 3 RUN DATE: 07/13/11 [facility] NMI LIVE PAGE 1 RUN TIME: 1526 Specimen Inquiry RUN USER: INTERFACE Name: KAYLA ESTEVEZ Status: REG REF Re07/12/11 Age/Sex: 21/F Unit#: [id number] Location: [facility] : [birth year] SPEC #: [id number] BRENDEN: 07/12/11 STATUS: COMP REQ #: [id number] RECD: 07/12/[address]: Precious Rachel CNM SOURCE: URINE ENTR: 07/12/[address]: PARAMJIT: ORDERED: GC/CHL APTIMA QUERIES: MEDENT REQUISITION # [id number] ACT WKST: GCCHL 07/13/11 #1 Procedure Result [...] than a true positive. DEPARTMENT OF PATHOLOGY, [address] [place] [address] [facility] Permit #[id number] Maren Braden M.D. Box Toe Buffer RUN DATE: 07/13/11 [facility] NMI LIVE PAGE 2 RUN TIME: 1526 Specimen Inquiry RUN USER: INTERFACE Name: KAYLA ESTEVEZ Status: REG REF Re07/12/11 Age/Sex: 21/F Unit#: [id number] Location: [facility] : [birth year] -- -- CONTINU ED [...] result may have adverse psychosocial impact, the [facility] recommends retesting by a method using an [...] be higher than a true positive. - [facility] Permit #[id number] [address] [place] [address] DEPARTMENT OF PATHOLOGY, [address] [place] [address] [facility] Permit #[id number] Handy Garcia M.D. Director Dami Chakraborty M.D. Box Toe Buffer 13 No bands detected 4 13 No [...] Test performed by Immunoblot. Test Performed by: [facility] Dpt of Lab Med and Pathology [address] [place] [address] Taxation Agent: Josef Saavedra III, M.D. 13 FINAL INTERPRETATION: 7 No HIV antibody is detected. . This information has been disclosed to you from confidential records which are protected by [place] State law. State law prohibits you from making further disclosure of this information without the specific written consent of the person to whom it pertains, or as otherwise permitted by law. Any unauthorized further disclosure in violation of state law may result in a fine or care home sentence or both. General authorization for the release of medical or other information is not, except in limited circumstances set forth in Part 63, Title 10, of [facility], sufficient authorization for further disclosure. Disclosure of confidential HIV information that occurs as the result of a general authorization for the release of medical or other information will be in violation of the state law and may result in a fine or a care home sentence. . 13 FINAL: NO GROWTH DAY 2 (<1,000 CFU/mL) 8 13 ---- 9 RUN DATE: 05/19/11 [facility] NMI LIVE PAGE 1 RUN TIME: 1141 Specimen Inquiry RUN USER: INTERFACE -- Name: KAYLA ESTEVEZ Status: REG REF Re05/17/11 Age/Sex: 21/F Unit#: [id number] Location: [facility] : [birth year] -- Specimen: [id number] [place] Spec Date: 05/17/[address]: Gwen hooper CNM Spec Type: CYTOLOGY Received: 05/19/116624 Copies to: SOURCE ECTOCERVICAL/ENDOCERVICAL Thin Prep with Reflex HPV Test PATIENT INFORMATION ACTUAL COLLECTION DATE: 05/17/11 ? Yes LAST MENSTRUAL PERIOD: 03/24/11 PATIENT HISTORY: Unknown ADEQUACY OF SPECIMEN Satisfactory for evaluation * Transformation zone component identified * DIAGNOSIS NEGATIVE FOR INTRAEPITHELIAL LESION OR MALIGNANCY * This Pap test was evaluated with the assistance of the RCT LogicPrep Pap Test Imaging System. The Pap Smear [...] three years. Initial evaluation performed by Kristie BRAXTON([facility]) 05/19/11 Final Interpretation electronically signed by: Kristie BRAXTON([facility]) 05/19/11 1140 -- -- DEPARTMENT OF PATHOLOGY, [address] [place] [address] [facility] Permit #[id number] Handy Garcia M.D. Director Dami Chakraborty M.D. Telegraph Repeater Installer Dir avelar -- 14 Test Performed by: 0 [facility] Dpt of Lab Med and Pathology [address] [place] [address] Taxation Agent: Josef Saavedra III, M.D. 14 PLEASE NOTE [...] 8 14 ---- 9 RUN DATE: 04/17/08 [facility] NMI LIVE PAGE 1 RUN TIME: 1132 Specimen Inquiry RUN USER: INTERFACE -- Name: KAYLA ESTEVEZ Status: REG REF Re04/16/08 Age/Sex: 18/F Unit#: [id number] Location: [facility]. : [birth year] -- Specimen: [id number] SOUT Spec Date: 04/16/[address] [facility] [address]: Kimberlyn Benitez mp MEDICAL STAFF DIRECTOR Spec Type: CYTOLOGY Received: 04/17/08 Copies to: SOURCE ECTOCERVICAL/ENDOCERVICAL Thin Prep with Reflex HPV Test PATIENT INFORMATION ACTUAL COLLECTION DATE: 04/16/08 ? YES LAST MENSTRUAL PERIOD: 02/07/08 PATIENT HISTORY: Prior Elsewhere ADEQUACY OF SPECIMEN Satisfactory for evaluation * Transformation zone component identified * DIAGNOSIS NEGATIVE FOR INTRAEPITHELIAL LESION OR MALIGNANCY * This Pap test was evaluated with the assistance of the RCT LogicPrep Pap Test Imaging System. The Pap Smear [...] years. Final Interpretation electronically signed by: Imelda WILDER([facility]) 04/17/08 113 2 -- -- DEPARTMENT OF PATHOLOGY, [address] [place] [address] [facility] Permit #[id number] Handy Garcia M.D. Director of [employer] -- 15 PLEASE NOTE NEW REFERENCE RANGE [...] from confidential records which are protected by [place] State law. State law prohibits you from making further disclosure of this information without the specific written consent of the person to whom it pertains, or as otherwise permitted by law. Any unauthorized further disclosure in violation of state law may result in a fine or care home sentence or both. General authorization for the release of medical or other information is not, except in limited circumstances set forth in Part 63, Title 10, of [facility], sufficient authorization for further disclosure. Disclosure of confidential HIV information that occurs as the result of a general authorization for the release of medical or other information will be in violation of the state law and may result in a fine or a care home sentence. . 15 Test Performed by: 3 [facility] [address] [place] [id number] Taxation Agent: Josef Saavedra III, M.D. 15 INTERPRETATION: NORMAL ADULT PATTERN 4 By high-pressure liquid chromatography (HPLC), there is a normal adult pattern of hemoglobins and normal levels of HbA2 and HbF are present. No variant hemoglobins or microcytosis are observed. This is consistent with A/A phenotype. Results were reviewed and interpreted by Beth Rosado M.D., (telephone no. ). Procedures Date Code Description Status 08/31/2018 51800 Echography Uterus Limited Completed 05/24/2018 74727 Ultrasound;Preg Uterus Single Or First Gestation Completed Transabdominal 03/27/2018 97872 Nuchal Translucency Ultrasound /First Gestation Completed 03/31/2017 23144 Colposcopy W/Biopsy Cervix/Endocervical Curettage Completed 09/09/2016 83916 Delivery Only Completed 09/09/2016 22564 Delivery Routine Completed 09/09/2016 53391 Ligation/Transection Fallopian Tubes During Surgery Completed 09/01/2016 16586 Non-Stress Test Completed 05/03/2016 21542 Colposcopy Of The Cervix Inc Upper/Adjacent Vagina Completed 04/21/2016 29188 Echography Uterus Complete Completed 03/23/2016 31846 Echography Uterus Complete Completed 03/23/2016 63576 Echography Uterus Complete Completed 12/10/2011 38456 Delivery Routine Completed 12/10/2011 43927 Delivery Only Completed 11/23/2011 79105 Echography Uterus Follow-Up Or Repeat Completed 10/05/2011 58311 Echography Uterus Follow-Up Or Repeat Completed 08/09/2011 68659 Echography Uterus Complete Completed 06/14/2011 71669 Nuchal Translucency Ultrasound /First Gestation Completed 11/07/2008 24034 Obstetric Care Routine Completed 11/06/2008 50963 Non-Stress Test Completed 11/05/2008 21877 Non-Stress Test Completed 06/27/2008 86951 Echography Uterus Complete Completed 05/07/2008 79101 Nuchal Translucency Ultrasound /First Gestation Completed 05/07/2008 23242 Nuchal Translucency Ultrasound /First Gestation Completed Encounters Type Date Location Provider Dx Diagnosis Office Visit 11/03/2017 [facility] Danny Kelley, 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 Office Visit 04/23/2015 3:00p [facility] Danny Velez 215.5 Benign Neoplasm Maren Kelley Abdomen Connective & Soft Tissue Office Visit 08/19/2013 11:00a [facility] Christie Pearson NP V72.31 Routine Arch Support Maker Examination V76.2 Screening Malignant Neoplasm Cervix Office Visit 08/07/2012 1:00p [facility] Christie Pearson V72.31 Routine Arch Support Maker INCOME TAX EXPERT Examination V76.2 Screening Malignant Neoplasm Cervix V25.8 Contraceptive Management Spec Other Office 11/23/2011 [facility] Danny Velez 652.93 Malposition/Malpresentation Visit 10:00a Maren Kelley Unspec Antepartum Cond Or Compl Office 11/06/2008 Delivery Gwen 644.13 Labor Threatened Other Visit 10:35a MD Erasto Antepartum Cond Or Compl Office 11/05/2008 Non - April Alma 655.73 Movements Decreased Visit 1:29p Surgical INCOME TAX EXPERT, CNM Antepartum Cond Or Compl Hospital Office 09/01/2008 [facility] Danny Velez 786.9 Respiratory & Chest Symptoms Visit 11:00a Maren Kelley Other Office 05/08/2008 [facility] Danny Velez V22.1 Supervison Of Normal Visit 11:20a Maren Kelley Other V67.9 Exam Follow Up Unspec V26.33 Genetic Counseling Plan of Treatment Future Appointment(s):10/31/2018 1:00 pm - Gwen Maurer MD at [facility]09/18/2018 10:00 am - Danny Kelley M.D. at [facility]09/24/2018 2: 15 pm - Hunter Alexandre MD at [facility]10/05/2018 10:20 am - Dominguez Denis CNM at [facility]09/28/2018 7:45 am - Danny Kelley M.D. at [facility] [id number] 7:45 am - Gwen Maurer MD at [facility] O R
[2018-09-28 06:45] LABS: Hematocrit 33 % (35-47); Hemoglobin 10.9 g/dl (12.0-16.0); Mean Corpuscular HGB Conc 33 g/dl (31-36); Mean Corpuscular Hemoglobin 31 pg (27-31); Mean Corpuscular Volume 95 fL (80-97); Mean Platelet Volume 10.7 fL (7.4-10.4); Platelet Count 419 10^3/ul (150-450); Red Blood Count 3.48 10^6/ul (4.00-5.40); Red Cell Distribution Width 14 % (10.5-15); White Blood Count 16.4 10^3/ul (3.5-10.8)
[2018-09-28] MEDS ORDERED: ceFOXitin 2 GM IVPREMIX* 2 GM/50 ML BAG IVPB ONE (07:00)
[2018-09-28 07:34] LABS: ABS Basophils 0.1 10^3/ul (0-0.2); ABS Eosinophils 0.2 10^3/ul (0-0.6); ABS Lymphocytes 3.4 10^3/ul (1.0-4.8); ABS Monocytes 1.3 10^3/ul (0-0.8); ABS Neutrophils 11.4 10^3/ul (1.5-7.7); ABS Nucleated RBC 0 10^3/ul; Large Platelets Present; Nucleated Red Blood Cells % 0.1
[2018-09-28] MEDS ORDERED: fentaNYL* 50 MCG/ML 2 ML VIAL (100 MCG VIAL) ONE (07:41)
[2018-09-28] MEDS ORDERED: Morphine PF AMP (0.5MG/ML)* 5 MG/10 ML AMP ONE (07:41)
[2018-09-28] MEDS ORDERED: Ondansetron INJ* 2 MG/ML VIAL ONE (07:41)
[2018-09-28] MEDS ORDERED: Bupivacaine-MPF SPINAL* 7.5 MG/ML - 2ML AMP ONE (07:41)
[2018-09-28] MEDS ORDERED: Lidocaine 2% PF * 5 ML VIAL ONE (07:44)
[2018-09-28] MEDS ORDERED: Phenylephrine INJ* 10 MG/ML 1 ML VIAL (10 MG) ONE (07:50)
[2018-09-28] MEDS ORDERED: OXYTOCIN* 10 UNITS/ML 1 ML VIAL ONE (08:29)
[2018-09-28] MEDS ORDERED: Nalbuphine* 10 MG/ML 1 ML VIAL IV PRN (08:52)
[2018-09-28] MEDS ORDERED: Naloxone* 0.4 MG/ML 1 ML VIAL IV PRN (08:52)
[2018-09-28] MEDS ORDERED: Ondansetron INJ* 2 MG/ML VIAL IV PRN (08:52)
[2018-09-28] MEDS ORDERED: Metoclopramide IV* 5 MG/ML 2 ML VIAL IV PRN (08:52)
[2018-09-28] MEDS ORDERED: Naloxone* 2 MG in NS 0.9% 250 ML* 250 ML IV PRN (08:52)
[2018-09-28] MEDS ORDERED: Glycerin ADULT SUPP PR PRN (09:36)
[2018-09-28] MEDS ORDERED: Dibucaine 1% 28.35 GM TUBE PR PRN (09:36)
[2018-09-28] MEDS ORDERED: Witch Hazel PAD* JAR TOPICAL PRN (09:36)
[2018-09-28] MEDS ORDERED: Acetaminophen TAB* 325 MG PO PRN ×2 (09:36→12:46)
[2018-09-28] MEDS ORDERED: Lactated Ringers 1000 ML Bag* 1,000 ML IV SCH (10:00)
[2018-09-28] MEDS ORDERED: Oxytocin in LR* 20 UNITS/1,000 ML BAG IVPB SCH (10:00)
[2018-09-28] MEDS ORDERED: Ketorolac INJ* 30 MG/ML 1 ML VIAL ONE (10:43)
[2018-09-28] MEDS: Ketorolac INJ* 30 MG/ML 1 ML VIAL IM PRN ×2 (10:45→16:49)
[2018-09-28] MEDS: Acetaminophen IV 1GM/100ML * 1,000 MG/100 ML VIAL IVPB ONE ×2 (10:46→10:47)
[2018-09-28] MEDS ORDERED: oxyCODONE TAB* 5 MG TAB PO PRN (12:46)
[2018-09-28] MEDS: Simethicone TAB* 80 MG TAB.CHEW PO SCH ×3 (13:04→20:56)
[2018-09-28] MEDS: Docusate CAP* 100 MG PO SCH ×2 (13:04→20:56)
--- NOTE | 2018-09-28 14:44 | OP ---
OPERATIVE REPORT: DATE OF OPERATION: 09/28/18 DATE OF : 86 SURGEON: Dr. Gwen Maurer. CONTINUOUS MINER OPERATOR HELPER: Dr. Danny Kelley. ANESTHESIOLOGIST: Dr. Cat Sauceda. ANESTHESIA: Spinal. PRE-OP DIAGNOSES: Desires repeat section, desires permanent sterility. POST-OP DIAGNOSES: Desires repeat section, desires permanent sterility, delivered. OPERATIVE PROCEDURE: Repeat low transverse section and bilateral tubal ligation with bilate ral fimbriectomy. ESTIMATED BLOOD LOSS: 500 cc. FLUIDS: 600 cc of crystalloid. URINE OUTPUT: 200 cc of concentrated, but clear yellow urine. FINDINGS: Revealed a vertex female , Apgars 9 at 1 minute and 9 at 5 minutes. Weight was 7 po unds 5 ounces. No nuchal cord. No meconium. Placenta manually extracted 3-vessel cord and intact. Normally palpated and normal visualized tubes and ovaries bilaterally. COMPLICATIONS: None apparent. DISPOSITION: Stable to the recovery room. DESCRIPTION OF PROCEDURE: The patient was placed in dorsal lithotomy position. The abdomen was prepp ed and draped in a sterile standard fashion. Anesthesia was tested to appropriate level. The patien t was identified with universal protocol for correct procedure, patient, and position. Incision was made through prior incision with a scalpel. This was carried down through to the fascia. Fascia was scored in the midline and extended laterally and superiorly using Branch scissors. Fascia was separate d with blunt and sharp dissection, the peritoneum was then entered bluntly. There were some peritone al adhesions in the lower uterine segment, those were taken down bluntly. Bladder blade was inserted . Lower uterine segment was identified. Incision was made with scalpel. This was carried down thro ugh to membrane. Incision was extended laterally and superiorly using bandage scissors. Amniotomy w as created for clear fluid. Infant was delivered vertex. No nuchal cord. Anterior shoulder and pos terior shoulder delivered. Cord was allowed to be pulsed for at least 60 seconds and milked. Cord w as then doubly clamped and cut, and was handed off to waiting button station worker. Appropriate cord blood was obtained. Placenta was manually extracted and noted to be intact. Uterus was unable to b e exteriorized. Given the size of the incision, the cavity was wiped clean, noted to be free of any membranes or placental tissue. The incision itself was clamped with broad Allises and reapproximated in 2 layers, first layer running locked 0 Vicryl, second layer running imbricated. At that point, t ubes were able to be seen through the hysterotomy site and the right fallopian tube was clamped with a Juani. The distal one-third of the tube was clamped with Juani and then ligated first with 0 Vicry l and then suture ligated using 2-0 Vicryl. The distal third of the tube was then excised with Metze nbaum scissors. Hemostasis was noted. This process was repeated on the left. Lavage was performed. Both hysterotomy sites and bilateral tubal ligation sites were noted to be hemostatic. The peritone um was then reapproximated using 3-0 Vicryl in a running fashion. Subfascial area was noted to be hem ostatic and the fascia itself was reapproximated using 0 Vicryl x2 in a running fashion. Subcu was n oted to be hemostatic in less than 2 cm and the skin was reapproximated using 4-0 Monocryl in subcuti cular fashion. Mastisol and Steri's were applied. All sponge, needle, instrument and blade counts w ere correct throughout the case. The patient tolerated the procedure well and went to recovery room in stable condition. [id number]/[facility] #: [id number]
[2018-09-28] MEDS ORDERED: Nicotine Inhaler* 10 MG AMP INH PRN (18:19)
[2018-09-28] MEDS ORDERED: Mouth Piece, Nicotine* 1 EACH CARTRIDGE INH ONE (18:19)
[2018-09-28] MEDS ORDERED: Nicotine PATCH 7 MG/24 HR* PATCH TRANSDERM SCH (18:30)
[2018-09-28] MEDS ORDERED: oxyCODONE TAB* 5 MG TAB PO ONE (19:15)
[2018-09-28] MEDS ORDERED: oxyCODONE/Acetamin 5/325 MG* TAB PO PRN (22:15)
[2018-09-28] MEDS: Ketorolac TAB * 10 MG TAB PO PRN (23:34)
[2018-09-29] MEDS ORDERED: Acetaminophen TAB* 325 MG PO PRN (01:01)
[2018-09-29] MEDS: Ketorolac TAB * 10 MG TAB PO PRN (05:38)
[2018-09-29 05:50] LABS: ABS Basophils 0.1 10^3/ul (0-0.2); ABS Eosinophils 0.2 10^3/ul (0-0.6); ABS Lymphocytes 2.9 10^3/ul (1.0-4.8); ABS Monocytes 1.1 10^3/ul (0-0.8); ABS Neutrophils 12.8 10^3/ul (1.5-7.7); ABS Nucleated RBC 0 10^3/ul; Eosinophil % 1.2 %; Hematocrit 32 % (35-47); Hemoglobin 10.8 g/dl (12.0-16.0); Lymphocyte % 16.8 %; Mean Corpuscular HGB Conc 34 g/dl (31-36); Mean Corpuscular Hemoglobin 32 pg (27-31); Mean Corpuscular Volume 95 fL (80-97); Nucleated Red Blood Cells % 0; Platelet Count 398 10^3/ul (150-450); Red Blood Count 3.38 10^6/ul (4.00-5.40); Red Cell Distribution Width 15 % (10.5-15); White Blood Count 17.1 10^3/ul (3.5-10.8)
[2018-09-29] MEDS ORDERED: oxyCODONE/Acetamin 5/325 MG* TAB PO PRN (06:00)
[2018-09-29] MEDS: Docusate CAP* 100 MG PO SCH ×3 (08:23→20:05)
[2018-09-29] MEDS: Simethicone TAB* 80 MG TAB.CHEW PO SCH ×4 (08:23→20:05)
[2018-09-29] MEDS ORDERED: Ferrous Gluconate TAB* 324 MG TAB PO SCH (09:00)
[2018-09-29] MEDS: CETIRIZINE 10 MG PO PRN (14:16)
[2018-09-29] MEDS: ESCITALOPRAM 10 MG PO SCH (14:25)
[2018-09-29] MEDS: oxyCODONE/Acetamin 5/325 MG* TAB PO PRN (15:05)
[2018-09-29] MEDS: Ibuprofen TAB* 600 MG PO PRN (20:05)
[2018-09-29] MEDS ORDERED: Nicotine Patch Removal NOTE PATCH OFF SCH (21:00)
[2018-09-30] MEDS: Ibuprofen TAB* 600 MG PO PRN ×2 (02:31→08:56)
[2018-09-30] MEDS: Docusate CAP* 100 MG PO SCH (08:55)
[2018-09-30] MEDS: Simethicone TAB* 80 MG TAB.CHEW PO SCH (08:55)
[2018-09-30] MEDS: ESCITALOPRAM 10 MG PO SCH (08:55)
[2018-09-30] MEDS: CETIRIZINE 10 MG PO PRN (08:55)
[2018-09-30 09:13] VITALS: BP 116/74
[2018-09-30] MEDS: oxyCODONE/Acetamin 5/325 MG* TAB PO PRN (11:00)
== END 2018-09-30 12:23 | disposition home or self-care (01) | DRG 540 ==
LOC: MCHOB 06:00
PROVIDERS: ADMIT Obstetrics & Gynecology; ATTEND Obstetrics & Gynecology
PROC: 0UB70ZZ Excision of Bilateral Fallopian Tubes, Open Approach (ICD-10-PCS; 2018-09-28)
PROC: 10D00Z1 Extraction of Products of Conception, Low, Open Approach (ICD-10-PCS; principal; 2018-09-28 07:45)
DX: O34.211 Maternal care for low transverse scar from previous cesarean delivery (principal); O99.284 Endocrine, nutritional and metabolic diseases complicating childbirth; E03.9 Hypothyroidism, unspecified; O99.344 Other mental disorders complicating childbirth; F32.9 Major depressive disorder, single episode, unspecified; O99.334 Smoking (tobacco) complicating childbirth; F17.210 Nicotine dependence, cigarettes, uncomplicated; Z30.2 Encounter for sterilization; Z3A.39 39 weeks gestation of pregnancy; Z37.0 Single live birth
CPT/HCPCS: 36415; 85025; 86850; 86900; 86901; 88302; A9270-GY; J0694; J1885; J2300; J2405; J2590; J3010

== ENCOUNTER 2021-05-22 02:12 | Inpatient (IN) ==
[2021-05-22 03:25] LABS: Urine Appearance Cloudy; Urine Bilirubin Negative (Negative); Urine Blood 3+ (Negative); Urine Color Yellow; Urine Glucose Negative (Negative); Urine Ketones Negative (Negative); Urine Nitrite Negative (Negative); Urine Protein 1+(30 mg/dL) (Negative); Urine Specific Gravity 1.006 (1.002-1.030); Urine Urobilinogen Negative (Negative)
[2021-05-22 03:29] LABS: Urine Bacteria 1+ (Absent); Urine Red Blood Cell 3+(>10/hpf) (Absent); Urine Squamous Epithelial Cell Present (Absent); Urine White Blood Cell Trace(0-5/hpf) (Absent); Urine Yeast Present (Absent)
[2021-05-22 03:32] LABS: Urine Benzodiazepine Screen None Detected (None Detect); Urine Cannabinoids Screen None Detected (None Detect); Urine Opiates Screen None Detected (None Detect)
[2021-05-22 03:38] LABS: ABS Basophils 0.1 10^3/ul (0-0.2); ABS Eosinophils 0.1 10^3/ul (0-0.6); ABS Lymphocytes 2.1 10^3/ul (1.0-4.8); ABS Monocytes 0.8 10^3/ul (0-0.8); ABS Neutrophils 9.6 10^3/ul (1.5-7.7); Eosinophil % 0.5 %; Hematocrit 40 % (35-47); Hemoglobin 13.8 g/dL (12.0-16.0); Lymphocyte % 16.6 %; Mean Corpuscular HGB Conc 34 g/dL (31-36); Mean Corpuscular Hemoglobin 31 pg (27-31); Mean Corpuscular Volume 89 fL (80-97); Mean Platelet Volume 7.7 fL (7.4-10.4); Platelet Count 454 10^3/uL (150-450); Red Blood Count 4.53 10^6 /uL (3.70-4.87); Red Cell Distribution Width 13 % (10-15); White Blood Count 12.6 10^3/uL (3.5-10.8)
[2021-05-22 03:55] LABS: Acetaminophen < 15 mcg/mL; Alcohol, S < 13 mg/dL (<13); Salicylate < 2.50 mg/dL (<30)
[2021-05-22 03:56] LABS: ALT 37 U/L (7-52); AST 25 U/L (13-39); Albumin 4.7 g/dL (3.2-5.2); Albumin/Globulin Ratio 1.7 (1-3); Alkaline Phosphatase 111 U/L (35-149); Anion Gap 10 mmol/L (2-11); Blood Urea Nitrogen 10 mg/dL (6-24); CO2 Carbon Dioxide 24 mmol/L (22-32); Calcium 9.6 mg/dL (8.6-10.3); Chloride 103 mmol/L (101-111); EGFR African American 124.8 (>60); EGFR Non-African American 103.1 (>60); Globulin 2.8 g/dL (2-4); Glucose 110 mg/dL (70-100); Potassium 3.6 mmol/L (3.5-5.0); Sodium 137 mmol/L (135-145); Total Protein 7.5 g/dL (6.4-8.9)
[2021-05-22 04:03] LABS: HCG Pregnancy < 0.60 mIU/mL
[2021-05-22 04:10] LABS: TSH Ultra Thyroid Stim Horm 2.52 mcIU/mL (0.34-5.60)
[2021-05-22] MEDS: Nicotine GUM 4MG FRUIT FLAVOR PO PRN ×2 (07:21→10:00)
[2021-05-22] MEDS ORDERED: Venlafaxine XR 75 mg PO ONE (08:06)
[2021-05-22 08:34] LABS: Rapid COVID-19 Molecular Undetected (Undetected)
[2021-05-22] MEDS ORDERED: Al Hydrox/Mg Hydrox/Simet LIQ 30 ML UDC PO PRN (09:50)
[2021-05-22] MEDS: Nicotine GUM 2MG FRUIT FLAVOR PO PRN ×3 (15:16→20:14)
[2021-05-22] MEDS: Amoxicillin/Clavul 875/125 TAB (Augmentin 875 tab) PO SCH (20:21)
[2021-05-23] MEDS: CMCS:OMEGA-3 FATTY ACID 1000 mg(NF) PO SCH (08:22)
[2021-05-23] MEDS: Amoxicillin/Clavul 875/125 TAB (Augmentin 875 tab) PO SCH ×2 (08:22→19:55)
[2021-05-23] MEDS: Nicotine GUM 2MG FRUIT FLAVOR PO PRN ×6 (08:23→21:51)
[2021-05-23] MEDS: Venlafaxine XR 75 mg PO SCH (08:24)
[2021-05-23] MEDS: Vitamin THERAPEUTIC TAB PO SCH (08:24)
[2021-05-24 08:09] LABS: HDL Cholesterol 56.5 mg/dL
[2021-05-24] MEDS: Venlafaxine XR 75 mg PO SCH (09:14)
[2021-05-24] MEDS: Vitamin THERAPEUTIC TAB PO SCH (09:15)
[2021-05-24] MEDS: Nicotine GUM 2MG FRUIT FLAVOR PO PRN ×6 (09:16→22:37)
[2021-05-24] MEDS: CMCS:OMEGA-3 FATTY ACID 1000 mg(NF) PO SCH (09:16)
[2021-05-24] MEDS: Amoxicillin/Clavul 875/125 TAB (Augmentin 875 tab) PO SCH ×2 (09:16→20:22)
[2021-05-25 08:32] VITALS: BP 122/76
[2021-05-25] MEDS: Vitamin THERAPEUTIC TAB PO SCH (08:41)
[2021-05-25] MEDS: CMCS:OMEGA-3 FATTY ACID 1000 mg(NF) PO SCH (08:41)
[2021-05-25] MEDS: Amoxicillin/Clavul 875/125 TAB (Augmentin 875 tab) PO SCH (08:41)
[2021-05-25] MEDS: Venlafaxine XR 75 mg PO SCH (08:42)
[2021-05-25] MEDS: Nicotine GUM 2MG FRUIT FLAVOR PO PRN (08:44)
== END 2021-05-25 12:00 | disposition home or self-care (01) | DRG 755 ==
LOC: ED 02:12 → BSU 04:45 → ED 08:23
PROVIDERS: ADMIT Psychiatry & Neurology Addiction Psychiatry; ATTEND Psychiatry & Neurology Addiction Psychiatry